=== PATIENT | female | born 1950 | race Caucasian/White ===

== ENCOUNTER → 2019-12-19 13:32 | Outpatient (BNVA) | payer MEDICARE, MEDICAID, SELFPAY | PROVIDERS: Family Provider Nurse Practitioner Family; Visit Provider Nurse Practitioner Family | DX: Z11.59 Encounter for screening for other viral diseases (principal) | CPT/HCPCS: 87635 ==

== ENCOUNTER → 2020-12-10 09:48 | Outpatient (BNVA) | payer MEDICARE, MEDICAID, SELFPAY | PROVIDERS: Family Provider Nurse Practitioner Family; Visit Provider Internal Medicine | DX: M33.90 Dermatopolymyositis, unspecified, organ involvement unspecified (principal); R21 Rash and other nonspecific skin eruption; Z79.899 Other long term (current) drug therapy; Z11.59 Encounter for screening for other viral diseases; Z11.1 Encounter for screening for respiratory tuberculosis | CPT/HCPCS: 83516; 99204 ==

== ENCOUNTER 2020-12-10 11:33 | Outpatient (CLI) | payer MEDICARE, MEDICAID, SELFPAY ==
--- NOTE | 2020-12-10 11:46 | XR_ITS ---
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 The lungs are clear and fully expanded. Cardiomediastinal silhouette is unremarkable. The right breas t is surgically absent. Surgical clips superimpose the lower right chest and right axilla. Regional b keny structures are intact. Spondylosis of the dorsal spine. XR/XR chest 2V* [id number] IMPRESSION: 1. No acute cardiopulmonary finding. No change. 2. Status post right mastectomy.
--- NOTE | 2020-12-10 11:46 | XR_ITS ---
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 No fracture or dislocation. Moderately advanced degenerative change of the medial joint compartment. Varus deformity of the knee. No joint effusion is seen. XR/XR knee RT 1-2V 01075 IMPRESSION: 1. Moderately advanced degenerative change of the medial joint compartment whic h is been progressive since the previous study. 2. No fracture or joint effusion seen
== END 2020-12-10 11:34 | disposition home or self-care (01) ==
LOC: RAD 11:43
PROVIDERS: PCP Nurse Practitioner Family; Visit Provider Internal Medicine
DX: Z79.899 Other long term (current) drug therapy (principal); Z11.59 Encounter for screening for other viral diseases; Z11.1 Encounter for screening for respiratory tuberculosis
CPT/HCPCS: 36415; 71046; 73560; 80053; 81001; 81003; 82550; 84100; 85025; 86140; 86160; 86162; 86200; 86235; 86255; 86376; 86431; 86480; 86704; 86803; 87340

== ENCOUNTER → 2021-03-23 13:02 | Outpatient (BNVA) | payer MEDICARE, MEDICAID, SELFPAY | PROVIDERS: PCP Nurse Practitioner Family; Visit Provider Internal Medicine | DX: M33.90 Dermatopolymyositis, unspecified, organ involvement unspecified (principal); R76.8 Other specified abnormal immunological findings in serum; Z79.899 Other long term (current) drug therapy | CPT/HCPCS: 99214 ==

== ENCOUNTER → 2021-06-11 09:54 | Outpatient (BNVA) | payer MEDICARE, MEDICAID, SELFPAY | PROVIDERS: PCP Nurse Practitioner Family; Visit Provider Internal Medicine | DX: M33.90 Dermatopolymyositis, unspecified, organ involvement unspecified (principal); R76.8 Other specified abnormal immunological findings in serum; M06.9 Rheumatoid arthritis, unspecified; Z79.899 Other long term (current) drug therapy | CPT/HCPCS: 99214 ==

== ENCOUNTER 2021-06-12 07:03 | Outpatient (CLI) | payer MEDICARE, MEDICAID, SELFPAY ==
--- NOTE | 2021-06-12 08:14 | XRR_ITS ---
PROCEDURE INFORMATION: Exam: XR Lumbosacral Spine Exam date and time: 06/12/2021 8:14 AM Age: 71 years old Clinical indication: Low back pain; Patient HX: HX of breast cancer; Additional info: M54.50 - low back pain, unspecified TECHNIQUE: Imaging protocol: XR of the lumbosacral spine. Views: 2 or 3 views. COMPARISON: CR Lumbar Spine Flex/Extens [id number] 04/09/2016 5:24 PM FINDINGS: Bones/joints: No fracture or other acute bony abnormality. Prominent chronic degenerative changes are present throughout the lumbar spine with disc space narrowing, sclerosis and osteophytes. There is moderate lumbar scoliosis There is narrowing sclerosis and hypertrophy of the lumbar facet joints. There is grade 1 spondylolisthesis at the L4-L5 level which is probably from chronic facet and ligamentous degeneration. Soft tissues: Unremarkable. XR/XR lumbar spine 2-3V* [id number] IMPRESSION: 1. Prominent DJD. 2. Grade 1 spondylolisthesis at L4-L5. 3. No acute abnormality.
== END 2021-06-12 07:04 | disposition home or self-care (01) ==
LOC: RAD 07:04
PROVIDERS: PCP Nurse Practitioner Family; Visit Provider Internal Medicine
DX: M43.16 Spondylolisthesis, lumbar region (principal); M54.50 Low back pain, unspecified
CPT/HCPCS: 72100

== ENCOUNTER 2021-08-25 11:51 | Outpatient (CLI) | payer MEDICARE, MEDICAID, SELFPAY ==
[2021-08-25 12:31] LABS: Basophils # 0.1 10^3/uL (0.0-0.1); Basophils % 0.8 %; Eosinophils # 0.1 10^3/uL (0.0-0.8); Eosinophils % 1.1 %; Hemoglobin 13.2 g/dL (11.5-15.3); Lymphocytes # 1.8 10^3/uL (0.8-4.8); Lymphocytes % 25.7 %; Mean Corpuscular HGB Conc 33.8 g/dL (30.0-36.0); Mean Corpuscular Hemoglobin 31.8 pg (28.0-34.0); Mean Platelet Volume 10.6 fL (7.4-10.4); Monocytes # 0.5 10^3/uL (0.2-0.9); Monocytes % 6.7 %; Neutrophils # 4.64 10^3/uL (1.8-7.7); Neutrophils % 65.3 %; Nucleated Red Blood Cells % 0 %; Platelet Count 273 10^3/cmm (130-400); Red Blood Count 4.15 10^6/uL (4.1-5.3); Red Cell Distribution Width 13.4 % (12.1-15.1); White Blood Count 7.1 10^3/uL (4.0-10.0)
[2021-08-25 12:35] LABS: Erythrocyte Sedimentation Rate 9 mm/hr (0-15)
[2021-08-25 13:00] LABS: Alanine Aminotransferase 14 U/L (0-33); Albumin Level 3.9 g/dL (3.5-5.2); Alkaline Phosphatase 91 IU/L (35-105); Aspartate Amino Transferase 18 U/L (0-32); Blood Urea Nitrogen 15 mg/dL (8-23); Carbon Dioxide 27 mmol/L (22-29); Chloride 101 mmol/L (98-107); Creatine Phosphokinase 26 U/L (26-192); Globulin 3.1 g/dL (1.3-4.6); Glucose 102 mg/dL (65-115); Osmolality Calculated 281 mOsm/kg (285-295); Sodium 135 mmol/L (136-145); Total Bilirubin 0.7 mg/dL (0.15-1.2)
== END 2021-08-25 11:52 | disposition home or self-care (01) ==
LOC: LAB 11:55
PROVIDERS: PCP Nurse Practitioner Family; Visit Provider Internal Medicine
DX: M33.90 Dermatopolymyositis, unspecified, organ involvement unspecified (principal); M54.50 Low back pain, unspecified; R76.8 Other specified abnormal immunological findings in serum; Z79.899 Other long term (current) drug therapy
CPT/HCPCS: 80053; 82550; 85025; 85651; 86140; 99214

== ENCOUNTER → 2021-12-22 10:02 | Outpatient (BNVA) | payer MEDICARE, MEDICAID, SELFPAY | PROVIDERS: PCP Nurse Practitioner Family; Visit Provider Internal Medicine | DX: M33.90 Dermatopolymyositis, unspecified, organ involvement unspecified (principal); R76.8 Other specified abnormal immunological findings in serum; M54.50 Low back pain, unspecified | CPT/HCPCS: 99213 ==

== ENCOUNTER 2022-12-29 06:00 | Outpatient (RCR) | payer MEDICARE, MEDICAID, SELFPAY | END 2023-01-13 23:59 | disposition home or self-care (01) | LOC: TPT 06:00 | PROVIDERS: Visit Provider Orthopaedic Surgery | DX: M17.11 Unilateral primary osteoarthritis, right knee (principal) | CPT/HCPCS: 97110; 97140; 97162 ==

== ENCOUNTER 2023-01-14 06:00 | Outpatient (RCR) | payer MEDICARE, SELFPAY | END 2023-02-13 23:59 | disposition home or self-care (01) | LOC: TPT 06:00 | PROVIDERS: Visit Provider Orthopaedic Surgery | DX: Z47.1 Aftercare following joint replacement surgery (principal); Z96.651 Presence of right artificial knee joint | CPT/HCPCS: 97110 ==

== ENCOUNTER 2023-02-14 06:00 | Outpatient (RCR) | payer MEDICARE, SELFPAY | END 2023-02-22 23:59 | disposition home or self-care (01) | LOC: TPT 06:00 | PROVIDERS: Visit Provider Orthopaedic Surgery | DX: Z47.1 Aftercare following joint replacement surgery (principal); Z96.651 Presence of right artificial knee joint | CPT/HCPCS: 97110 ==

== ENCOUNTER 2023-02-17 10:41 | Outpatient (CLI) | payer MEDICARE, MEDICAID, SELFPAY ==
--- NOTE | 2023-02-17 10:53 | MM_ITS ---
WS: [id number] LEFT 3D TOMOSYNTHESIS DIGITAL MAMMOGRAPHY WITH CAD CLINICAL INFORMATION: HX BR CA/RT MST HISTORY: History of RIGHT mastectomy. COMPARISON: 2018 TECHNIQUE: 3 views of the left breast were obtained. FINDINGS: Scattered fibroglandular densities of the left breast. Punctate and lucent centered calcifications. No suspicious focal mass, asymmetry, calcifications, or architectural distortion. No evidence of kasia gnancy. IMPRESSION: MM/[place] [address] BI-RADS: 2-Benign FOLLOW UP: 1 Year Follow-up Recommend return to annual diagnostic mammography.
== END 2023-02-17 10:42 | disposition home or self-care (01) ==
PROVIDERS: Visit Provider Nurse Practitioner Family
DX: Z85.3 Personal history of malignant neoplasm of breast (principal)
CPT/HCPCS: 77061; G0279

== ENCOUNTER → 2023-04-11 09:40 | Outpatient (BNVA) | payer MEDICARE, SELFPAY | PROVIDERS: Visit Provider Nurse Practitioner Family | DX: I10 Essential (primary) hypertension (principal); Z79.899 Other long term (current) drug therapy; R76.8 Other specified abnormal immunological findings in serum | CPT/HCPCS: 80053; 80061; 82306; 84443; 85025 ==

== ENCOUNTER → 2023-05-19 09:48 | Outpatient (BNVA) | payer MEDICARE, SELFPAY | PROVIDERS: PCP Nurse Practitioner Family; Referring Provider Nurse Practitioner Family; Visit Provider Dermatology | DX: M33.12 Other dermatomyositis with myopathy (principal); L57.0 Actinic keratosis; L21.8 Other seborrheic dermatitis; M20.5X9 Other deformities of toe(s) (acquired), unspecified foot; L66.1 Lichen planopilaris; L82.1 Other seborrheic keratosis; L81.4 Other melanin hyperpigmentation | CPT/HCPCS: 17000; 99204 ==

== ENCOUNTER → 2023-09-29 13:50 | Outpatient (BNVA) | payer MEDICARE, SELFPAY | PROVIDERS: PCP Nurse Practitioner Family; Visit Provider Nurse Practitioner Family | DX: Z79.899 Other long term (current) drug therapy (principal); I10 Essential (primary) hypertension; F41.9 Anxiety disorder, unspecified; F33.41 Major depressive disorder, recurrent, in partial remission | CPT/HCPCS: 80053; 80061; 84443; 85025 ==

== ENCOUNTER → 2023-10-13 10:30 | Outpatient (BNVA) | payer MEDICARE, SELFPAY | PROVIDERS: PCP Nurse Practitioner Family; Visit Provider Internal Medicine Rheumatology | DX: Z79.899 Other long term (current) drug therapy (principal); M33.90 Dermatopolymyositis, unspecified, organ involvement unspecified; R76.8 Other specified abnormal immunological findings in serum; Z71.85 Encounter for immunization safety counseling; Z11.1 Encounter for screening for respiratory tuberculosis; Z11.59 Encounter for screening for other viral diseases | CPT/HCPCS: 99214 ==

== ENCOUNTER → 2023-11-21 09:30 | Outpatient (BNVA) | payer MEDICARE, SELFPAY | PROVIDERS: PCP Nurse Practitioner Family; Visit Provider Nurse Practitioner Family | DX: M33.12 Other dermatomyositis with myopathy (principal); L21.8 Other seborrheic dermatitis; L66.11 Classic lichen planopilaris | CPT/HCPCS: 99214 ==

== ENCOUNTER → 2024-04-09 10:13 | Outpatient (BNVA) | payer MEDICARE, SELFPAY | PROVIDERS: Visit Provider Internal Medicine Rheumatology | DX: M33.90 Dermatopolymyositis, unspecified, organ involvement unspecified (principal); R76.8 Other specified abnormal immunological findings in serum; Z79.899 Other long term (current) drug therapy; Z71.85 Encounter for immunization safety counseling; M47.816 Spondylosis without myelopathy or radiculopathy, lumbar region | CPT/HCPCS: 36415; 80076; 82565; 85025; 85651; 86140; 99214 ==

== ENCOUNTER → 2024-10-16 14:50 | Outpatient (BNVA) | payer MEDICARE, SELFPAY | PROVIDERS: Visit Provider Nurse Practitioner Family | DX: M33.12 Other dermatomyositis with myopathy (principal); L21.8 Other seborrheic dermatitis; L66.11 Classic lichen planopilaris; L57.8 Other skin changes due to chronic exposure to nonionizing radiation; D48.5 Neoplasm of uncertain behavior of skin | CPT/HCPCS: 11102; 99214 ==

== ENCOUNTER 2024-10-31 13:56 | Outpatient (CLI) | payer MEDICARE, SELFPAY ==
[2024-10-31 14:56] LABS: Hematocrit 36.9 % (36-47); Hemoglobin 12.40 g/dL (11.27-16.99); Mean Corpuscular HGB Conc 33.6 g/dL (30-55); Mean Corpuscular Hemoglobin 33.6 pg (27-33); Mean Corpuscular Volume 100.0 fl (85-98); Nucleated Red Blood Cells % 0 %; Platelet Count 363 10^3/cmm (157-399); Red Blood Count 3.69 10^6/uL (3.85-5.65); White Blood Count 5.97 10^3/uL (3.29-11.43)
[2024-10-31 15:17] LABS: Alanine Aminotransferase 35 U/L (0-33); Albumin Level 3.7 g/dL (3.5-5.2); Alkaline Phosphatase 92 U/L (35-105); Aspartate Amino Transferase 34 U/L (0-32); Globulin 3.4 g/dL (1.3-4.6); Total Protein 7.1 g/dL (6.6-8.7)
== END 2024-10-31 13:57 | disposition home or self-care (01) ==
PROVIDERS: PCP Nurse Practitioner Family; Visit Provider Internal Medicine Rheumatology
DX: M33.13 Other dermatomyositis without myopathy (principal); Z79.899 Other long term (current) drug therapy; Z71.85 Encounter for immunization safety counseling; R76.8 Other specified abnormal immunological findings in serum; M47.816 Spondylosis without myelopathy or radiculopathy, lumbar region
CPT/HCPCS: 36415; 80076; 82565; 85025; 85651; 86140; 99214

== ENCOUNTER 2024-11-18 17:34 | Inpatient (IN) | payer MEDICARE, SELFPAY ==
[2024-11-18] VITALS (8 sets, daily range): BP systolic 153–232; BP diastolic 86–116; PULSE 75–90; RESP 15–18; TEMP 36.3–36.8; O2SAT 93–98; BMI 35.3; BMI 35.4
--- NOTE | 2024-11-18 17:37 | ECG_ITS ---
[facility] Test Date: 2024-11-18 Pat Name: Kassi Rodriguez Department: Room: Gender: Female Police Pilot: : 1950 Requested By: Vivian Lockhart Order Number: [id number] Parminder MD: Sandra Black M.D. Measurements Intervals [place] Rate: 73 P: 81 [place]: 179 QRS: 33 QRSD: 94 T: 43 QT: 402 QTc: 444 Interpretive Statements SINUS RHYTHM No previous ECG available for comparison Electronically Signed On 11-18-2024 21:18:53 CDT by Sandra Black M.D. [email or web address], [id number] [id number]
--- OUTSIDE RECORDS SUMMARY | 2024-11-18 17:40 | XMS_ITS | Encounter Summary ---
Author Organization [facility] Address [address] [place] [address] Care Team Providers Care Pencil Inspector Name Role Phone Ilda Hicks APN Primary Care Provider [phone] Encounter Details Date Type Department Care Team (Late st Contact Info) Description 09/17/2003 Outpatient Historical [facility] [address] [facility] [address] [place] [address] Azeb Aranda MD NO ADDRESS ON FILE SYMPTOMS IN BREAST NEC (Primary Dx) Social History Tobacco Use Types Packs/Day Years Used Date Smoking Tobacco: Never Assessed Comments Unknown Sex and Gender Information Value Date Recorded Sex Assigned at Not on file 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 [facility] [address] [place] [address] PCP - General 03/29/08 documented as of this encounter
--- OUTSIDE RECORDS SUMMARY | 2024-11-18 17:40 | XMS_ITS ---
Author Organization [facility] Address [address] Wilder: Epic Prelude ADT [place] [address] Care Team Providers Care Games Manager Name Role Phone Ilda Hicks APN Primary Care Provider [phone] Active Problems Problem Noted Date Diagnosed Date Primary osteoarthritis of right knee 12/23/2022 Preop general physical exam 12/01/2022 Status post right knee replacement -12/23/2022 Hx of breast cancer 12/01/2022 History of obstructive sleep apnea 12/01/2022 Rheumatoid arthritis 12/01/2022 SERGE (generalized anxiety disorder) 12/01/2022 HTN (hypertension), benign 12/01/2022 Hyponatremia 12/01/2022 Obesity (BMI 30.0-34.9) 12/01/2022 Dupuytren's disease of palm of both hands 2018 S/P carpal tunnel release, right wrist SX 8 09/28/2017 S/P 1.Corrective osteoplasty , right distal radius with Z-lengthening 09/28/2017 Carpal tunnel syndrome of right wrist 09/05/2017 Fracture of distal radius, right, closed, with n onunion 07/20/2017 History of breast cancer 12/04/2013 Follow-up examination, following unspecified artur leena 05/26/2009 Dermatomyositis 03/06/2009 Malignant neoplasm of upper-outer quadrant of fe male breast 10/02/2008 Current Treatment and Therapy Plans No current plan information found. Past Treatment and Therapy Plans No past plan information found. Lifetime Dose Tracking * Chemical Lifetime Dose Automatic Entry Manual Entr y Total DLP 166 DLP 0 DLP 166 DLP CTDIvol Max 11.3 mGy 0 mGy 11.3 mGy CTDIvol Min 11.3 mGy 0 mGy 11.3 mGy Resolved Problems Problem Noted Date Diagnosed Date Resolved Date Dermatomyositis 03/06/2009 03/06/2009
--- OUTSIDE RECORDS SUMMARY | 2024-11-18 17:40 | XMS_ITS | Encounter Summary ---
Author Organization [facility] Address [address] [place] [address] Care Team Providers Care Laminator Hand Name Role Phone Ilda Hicks APN Primary Care Provider [phone] Encounter Details Date Type Department Care Team (Late st Contact Info) Description 12/14/2005 Outpatient Historical [facility] Dermatology- 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 [facility] [address] [place] [address] PCP - General 03/29/08 documented as of this encounter
--- OUTSIDE RECORDS SUMMARY | 2024-11-18 17:40 | XMS_ITS | Encounter Summary ---
Author Organization [facility] Address [address] [place] [address] Care Team Providers Care Airport Driver Name Role Phone Ilda Hicks APN Primary Care Provider [phone] Encounter Details Date Type Department Care Team (Late st Contact Info) Description 04/10/2009 Ancillary Orders [facility] Gen Spec Surg [place] [facility] [address] [place] [address] Judson Yang MD NO ADDRESS ON FILE Social History Tobacco Use Types Packs/Day Years Used Date Smoking Tobacco: Never Alcohol Use Standard Drinks/Week Comments No 0 (1 standard drink = 0.6 oz pur e alcohol) Comments No Sex and Gender Information Value Date Recorded Sex Assigned at Not on file 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 [facility] [address] [place] [address] PCP - General 03/29/08 documented as of this encounter
--- OUTSIDE RECORDS SUMMARY | 2024-11-18 17:40 | XMS_ITS | Encounter Summary ---
Author Organization [facility] Address [address] [facility] Attn: Epic Prelude ADT [place] [address] Care Team Providers Care Floor Technician Name Role Phone Ilda Hicks APN Primary Care Provider [phone] Encounter Details Date Type Department Care Team (Late st Contact Info) Description 11/13/2001 Outpatient Historical Khadar Rushing DO [address] [place] [address] Social History Tobacco Use Types Packs/Day Years Used Date Smoking Tobacco: Never Assessed Comments Unknown Sex and Gender Information Value Date Recorded Sex Assigned at Not on file 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 [place], [place] [address] PCP - General 03/29/08 documented as of this encounter
--- OUTSIDE RECORDS SUMMARY | 2024-11-18 17:40 | XMS_ITS | Encounter Summary ---
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 Gender Identity Not on file Sexual Orientation Not on file documented as of this encounter Plan of Treatment Not on file documented as of this encounter Procedures Procedure Name Priority Date/Time Associated Diagnosis Comments POC GLUCOSE Routine 06/29/2007 5:46 AM CDT POC GLUCOSE Routine 06/29/2007 12:10 AM CDT POC GLUCOSE Routine 06/28/2007 6:38 PM CDT POC GLUCOSE Routine 06/28/2007 2:02 PM CDT PATHOLOGY Routine 06/28/2007 8:22 AM CDT documented in this encounter Results * (ABNORMAL) POC GLUCOSE (06/29/2007 5:46 AM CDT) GLUCOSE POC 141(H) 60 - 100 mg/dL [facility] Venous blood specimen (specimen) 06/29/2007 5:46 AM CDT 06/30/2007 5:22 AM CDT Judson Yang MD POINT OF CARE TESTING Marilin l Result Performing Organization Address City/[facility] Co de Phone Number [facility] CLIA# [id number] [address] [place] [address] * (ABNORMAL) POC GLUCOSE (06/29/2007 12:10 AM CDT) GLUCOSE POC 171(H) 60 - 100 mg/dL [facility] Venous blood specimen (specimen) 06/29/2007 12:10 AM CDT 06/30/2007 5:22 AM CDT Judson Yang MD POINT OF CARE TESTING Marilin l Result Performing Organization Address [facility] Co de Phone Number [facility] CLIA# [id number] [address] [place] [address] * (ABNORMAL) POC GLUCOSE (06/28/2007 6:38 PM CDT) GLUCOSE POC 178(H) 60 - 100 mg/dL [facility] COMMENT POC Follow Protocol [facility] Venous blood specimen (specimen) 06/28/2007 6:38 PM CDT 06/29/2007 12:44 AM CDT uJdson Yang MD POINT OF CARE TESTING Marilin l Result Performing Organization Address City/[facility] Co de Phone Number [facility] CLIA# [id number] [address] [place] [address] * (ABNORMAL) POC GLUCOSE (06/28/2007 2:02 PM CDT) GLUCOSE POC 109(H) 60 - 100 mg/dL [facility] Venous blood specimen (specimen) 06/28/2007 2:02 PM CDT 06/29/2007 1:13 AM CDT Judson Yang MD POINT OF CARE TESTING Marilin flores Result [facility] CLIA# [id number] [address] [place] [address] * PATHOLOGY (06/28/2007 8:22 AM CDT) PATHOLOGY/CYT OLOGY REPORT [facility] Anatomic Pathology Dept [address] [place] [address] Patient: KASSI RODRIGUEZ Accn No: [id number] Collected: 06/28/2007 8:22:00 AM SURGICAL PATHOLOGY FINAL REPORT Diagnosis A. Breast, right, mastectomy with axillary lymph nodes - invasive poorly differentiated ductal carcinoma - margins free of carcinoma - twenty-two benign axillary lymph nodes - see diagnostic summary. Diagnostic Summary: Histologic Type: Invasive poorly differentiated ductal carcinoma Histologic Grade (modified SBR): Poorly differentiated, Grade 3 of 3 Tubule formation score: 3 Nuclear pleomorphism score: 3 Mitotic count score: 2 Total score: 8 Size of invasive component (greatest dimension): 1.8 x 1.2 cm STAGING INFORMATION Primary Tumor: pT1c Regional Lymph Nodes: pN0 Number of nodes examined: 22 Number with metastasis: 0 Distant Metastasis: pMX Margins (invasive tumor): Uninvolved with carcinoma with mass located 2 cm from superior margin Margins (in situ tumor): Free of carcinoma Type of in situ component: Ductal carcinoma in situ, solid with central necrosis, Nuclear Grade 3 Size or percentage of in situ component: Less than 1% Vascular/lymphatic involvement: Not identified Calcifications: Not identified Prognostic markers: Were obtained on previous needle core biopsies [id number] and showed: ER: 0%, unfavorable NE: 0%, unfavorable Her2/humberto: 0, normal limit Ki-67: 55%, unfavorable. Kristy Taylor M.D. (Electronically signed by) Verified: 06/30/07 ROSSY/ELANA Clinical Information Invasive ductal carcinoma right breast. NOTE: The specimen will meet the formalin fixation guidelines. Specimen Source ABreast, RIGHT Microscopic Description Microscopic examination was performed. Gross Description Part A. Submitted in a container of formalin labelled [place], right total mastectomy with axillary lymph nodes is a mastectomy specimen with attached axillary tissue measuring 27 x 25 x 8 cm. An ellipse of skin containing nipple and areola is present on the anterior surface measuring 13 x 9.5 cm. The areola measures 4 cm in diameter. No lesions are identified on the skin surface. A suture is present at the medial aspect of the skin ellipse. The deep margin shows a good fascial plane with a small amount of attached skeletal muscle. The superior margin is marked with red ink, the inferior margin with green ink, and the deep margin with black ink. The breast is serially sectioned revealing a grayish-white stellate tumor mass in the upper outer breast quadrant measuring 1.8 x 1.2 x 1 cm. The tumor is located 2 cm from the superior margin, 5 cm from the deep margin and greater than 9 cm from the inferior margin. The tumor is located 3.5 cm from the overlying skin. No additional mass lesions are identified in the breast parenchyma. Cassette Summary: A1 - nipple and subareolar tissue A2 - superior margin nearest to tumor A3 - deep margin nearest to tumor A4-A6 - sections of tumor without inked margin A7 - additional sections upper outer breast quadrant greater than 1 cm from inked margin A8 - additional sections lower outer breast quadrant greater than 1 cm from inked margin A9 - additional sections lower inner breast quadrant greater than 1 cm from inked margin A10 - additional sections upper inner breast quadrant greater than 1 cm from inked margin A11 - five possible lymph nodes A12 - five possible lymph nodes A13-A15 - sections of one possible lymph node A16 - one possible lymph node bisected A17 - one possible lymph node A18 - one possible lymph node bisected A19-A20 - one possible lymph node A21 - one possible lymph node bisected A22 - four possible lymph nodes A23-A25 - one possible lymph node A26 - one possible lymph node bisected. Gross Summary: Specimen Type: Mastectomy with attached axillary dissection Lymph Node Sampling: Attached axillary dissection Specimen Size: 27 x 25 x 8 cm Laterality: Right Tumor Site: Upper outer quadrant (10 o'clock from previous needle core biopsy [id number]) Time in Formalin Between 6 and 48 Hours (Yes/No): Yes. PCR/TKB INTERFACE SYSTEM 06/28/2007 8:22 AM CDT us Judson Yang MD PATHOLOGY/CYTOLOGY ORDERAB LES Final Result INTERFACE SYSTEM Refer to clinic/hospital department documented in this encounter Visit Diagnoses Diagnosis Unspecified essential hypertension documented in this encounter Care Teams Stencil Machine Operator Relationship Specialty Start Date End Date Ilda Hicks APN [address] [place] [address] PCP - General 03/29/08 documented as of this encounter
--- OUTSIDE RECORDS SUMMARY | 2024-11-18 17:40 | XMS_ITS | Encounter Summary ---
Author Organization [facility] Address [address] [place] [address] Care Team Providers Care Paper Machine Supervisor Name Role Phone Hicks, Ilda Forbes APN Primary Care Provider [phone] Encounter Details Date Type Department Care Team (Late st Contact Info) Description 06/29/2007 Outpatient Historical [facility] Jesu Delgado MD NO ADDRESS ON FILE Morbid Obesity (CMS/HCC); Malignant Neoplasm of Breast (Female), Unspecified Site (CMS/HCC); Personal History of Tobacco Use, Presenting Hazards to Health Social History Tobacco Use Types Packs/Day Years Used Date Smoking Tobacco: Never Assessed Comments Unknown Sex and Gender Information Value Date Recorded Sex Assigned at Not on file Legal Sex Female 2:47 AM VIROLOGIST Gender Identity Not on file Sexual Orientation Not on file documented as of this encounter Plan of Treatment Not on file documented as of this encounter Procedures Procedure Name Priority Date/Time Associated Diagnosis Comments POC GLUCOSE Routine 07/07/2007 7:08 AM CDT POC GLUCOSE Routine 07/06/2007 8:07 PM CDT POC GLUCOSE Routine 07/06/2007 6:11 PM CDT POC GLUCOSE Routine 07/06/2007 1:37 PM CDT POC GLUCOSE Routine 07/06/2007 5:40 AM CDT POC GLUCOSE Routine 07/05/2007 10:13 PM CDT POC GLUCOSE Routine 07/05/2007 4:21 PM CDT POC GLUCOSE Routine 07/05/2007 12:31 PM CDT POC GLUCOSE Routine 07/05/2007 7:52 AM CDT POC GLUCOSE Routine 07/04/2007 8:25 PM CDT POC GLUCOSE Routine 07/04/2007 6:11 PM CDT POC GLUCOSE Routine 07/04/2007 12:09 PM CDT CBC WITH DIFFERENTIAL Routine 07/04/2007 6:08 AM CDT PTT Routine 07/04/2007 6:08 AM CDT POC GLUCOSE Routine 07/04/2007 5:18 AM CDT POC GLUCOSE Routine 07/03/2007 11:57 PM CDT POC GLUCOSE Routine 07/03/2007 5:16 PM CDT POC GLUCOSE Routine 07/03/2007 8:06 AM CDT documented in this encounter Results * (ABNORMAL) POC GLUCOSE (07/07/2007 7:08 AM CDT) [facility] Signature GLUCOSE POC 111(H) 60 - 100 mg/dL [facility] Venous blood specimen (specimen) 07/07/2007 7:08 AM CDT 07/08/2007 1:11 AM CDT us Jesu Ho MD POINT OF CARE TESTING Final Re sult [facility] CLIA# [id number] [address] [place] [address] * (ABNORMAL) POC GLUCOSE (07/06/2007 8:07 PM CDT) GLUCOSE POC 116(H) 60 - 100 mg/dL [facility] Venous blood specimen (specimen) 07/06/2007 8:07 PM CDT 07/07/2007 2:42 AM CDT Jesu Ho MD POINT OF CARE TESTING Final Re sult Performing Organization Address [facility] Co de Phone Number [facility] CLIA# [id number] [address] [place] [address] * (ABNORMAL) POC GLUCOSE (07/06/2007 6:11 PM CDT) GLUCOSE POC 105(H) 60 - 100 mg/dL [facility] Venous blood specimen (specimen) 07/06/2007 6:11 PM CDT 07/07/2007 2:42 AM CDT us Jesu Ho MD POINT OF CARE TESTING Final Re sult Performing Organization Address [facility] Co de Phone Number [facility] CLIA# [id number] [address] [place] [address] * (ABNORMAL) POC GLUCOSE (07/06/2007 1:37 PM CDT) GLUCOSE POC 128(H) 60 - 100 mg/dL [facility] Venous blood specimen (specimen) 07/06/2007 1:37 PM CDT 07/07/2007 2:42 AM CDT us Jesu Ho MD POINT OF CARE TESTING Final Re sult Performing Organization Address [facility] Co de Phone Number [facility] CLIA# [id number] [address] [place] [address] * (ABNORMAL) POC GLUCOSE (07/06/2007 5:40 AM CDT) GLUCOSE POC 114(H) 60 - 100 mg/dL [facility] Venous blood specimen (specimen) 07/06/2007 5:40 AM CDT 07/07/2007 2:42 AM CDT Jesu Ho MD POINT OF CARE TESTING Final Re sult Performing Organization Address [facility] Co de Phone Number [facility] CLIA# [id number] [address] [place] [address] * (ABNORMAL) POC GLUCOSE (07/05/2007 10:13 PM CDT) GLUCOSE POC 146(H) 60 - 100 mg/dL [facility] Venous blood specimen (specimen) 07/05/2007 10:13 PM CDT 07/06/2007 3:14 AM CDT Jesu Ho MD POINT OF CARE TESTING Final Re sult Performing Organization Address [facility] de Phone Number [facility] CLIA# [id number] [address] [place] [address] * (ABNORMAL) POC GLUCOSE (07/05/2007 4:21 PM CDT) GLUCOSE POC 132(H) 60 - 100 mg/dL [facility] Venous blood specimen (specimen) 07/05/2007 4:21 PM CDT 07/06/2007 3:14 AM CDT Jesu Ho MD POINT OF CARE TESTING Final Re sult Performing Organization Address [facility] de Phone Number [facility] CLIA# [id number] [address] [place] [address] * (ABNORMAL) POC GLUCOSE (07/05/2007 12:31 PM CDT) GLUCOSE POC 145(H) 60 - 100 mg/dL [facility] Venous blood specimen (specimen) 07/05/2007 12:31 PM CDT 07/06/2007 3:17 AM CDT us Jesu Ho MD POINT OF CARE TESTING Final Re sult Performing Organization Address [facility] Co de Phone Number [facility] CLIA# [id number] [address] [place] [address] * (ABNORMAL) POC GLUCOSE (07/05/2007 7:52 AM CDT) GLUCOSE POC 118(H) 60 - 100 mg/dL [facility] Venous blood specimen (specimen) 07/05/2007 7:52 AM CDT 07/06/2007 3:17 AM CDT us Jesu Ho MD POINT OF CARE TESTING Final Re sult Performing Organization Address [facility] de Phone Number [facility] CLIA# [id number] [address] [place] [address] * (ABNORMAL) POC GLUCOSE (07/04/2007 8:25 PM CDT) COMMENT POC Follow Protocol [facility] GLUCOSE POC 132(H) 60 - 100 mg/dL [facility] Venous blood specimen (specimen) 07/04/2007 8:25 PM CDT 07/05/2007 5:13 AM CDT us Jesu Ho MD POINT OF CARE TESTING Final Re sult Performing Organization Address [facility] de Phone Number [facility] CLIA# [id number] [address] [place] [address] * (ABNORMAL) POC GLUCOSE (07/04/2007 6:11 PM CDT) COMMENT POC Follow Protocol [facility] GLUCOSE POC 115(H) 60 - 100 mg/dL [facility] Venous blood specimen (specimen) 07/04/2007 6:11 PM CDT 07/05/2007 5:13 AM CDT us Jesu Ho MD POINT OF CARE TESTING Final Re sult Performing Organization Address [facility] de Phone Number [facility] CLIA# [id number] [address] [place], [place] [address] * (ABNORMAL) POC GLUCOSE (07/04/2007 12:09 PM CDT) GLUCOSE POC 122(H) 60 - 100 mg/dL [facility] Venous blood specimen (specimen) 07/04/2007 12:09 PM CDT 07/05/2007 5:09 AM CDT us Jesu Ho MD POINT OF CARE TESTING Final Re sult Performing Organization Address [facility] de Phone Number [facility] CLIA# [id number] [address] [place] [address] * PTT (07/04/2007 6:08 AM CDT) PTT 34.0 22.5 - 36.5 Secs [facility] Comment: Therapeutic Range: Hi-level PE/DVT heparin protocol 80.1 -95.0 sec Lo-level PE/DVT heparin protocol 67.1 - 80.0 sec Cardiac Heparin Protocol 67.1 - 85.0 sec Neuro Heparin Protocol 67.1 - 80.0 sec As of 05/04/2007 note change in APTT Normal Range. Blood specimen (specimen) 07/04/2007 6:08 AM CDT 07/04/2007 6:35 AM CDT us Jesu Ho MD HEMATOLOGY ORDERABLES Final Re sult Performing Organization Address [facility] de Phone Number [facility] CLIA# [id number] [address] [place] [address] * (ABNORMAL) CBC WITH DIFFERENTIAL (07/04/2007 6:08 AM CDT) BASOPHILS 0.1 0.0 - 1.0 % [facility] MPV 10.6 8.9 - 12.8 Fl [facility] BASOPHILS ABSOLUTE 0.0 0.0 - 0.2 K/ul [facility] HEMOGLOBIN 8.7(L) 12.0 - 16.0 g/dL [facility] MONOCYTES 6.9 2.0 - 10.0 % [facility] RDW 14.9(H) 11.0 - 14.5 % [facility] MONOCYTE ABSOLUTE 0.8(H) 0.1 - 0.6 K/ul [facility] WBC 11.4(H) 4.8 - 10.8 K/ul [facility] NEUTROPHILS 81.6(H) 42.2 - 75.2 % [facility] MCH 27.2 27.0 - 34.0 pg [facility] NEUTROPHIL ABSOLUTE 9.3(H) 2.0 - 8.0 K/ul [facility] HEMATOCRIT 27.6(L) 36.0 - 46.0 % [facility] PLATELETS 335 140 - 440 K/ul [facility] EOSINOPHIL ABSOLUTE 0.0 0.0 - 0.7 K/ul [facility] EOSINOPHILS 0.1 0.0 - 7.0 % [facility] PERIPHERAL BLOOD SMEAR REVIEW Automated Diff [facility] RBC 3.20(L) 4.20 - 5.40 Mil/ul [facility] MCHC 31.5 30.0 - 35.0 g/dL [facility] LYMPHOCYTE ABSOLUTE 1.3 1.2 - 4.0 K/ul [facility] LYMPHOCYTES 11.3(L) 24.0 - 44.0 % [facility] MCV 86.3 84.0 - 103.0 Fl [facility] Blood specimen (specimen) 07/04/2007 6:08 AM CDT 07/04/2007 6:35 AM CDT us Jesu Ho MD HEMATOLOGY ORDERABLES Final Re sult Performing Organization Address [facility] de Phone Number [facility] CLIA# [id number] [address] [place] [address] * (ABNORMAL) POC GLUCOSE (07/04/2007 5:18 AM CDT) GLUCOSE POC 161(H) 60 - 100 mg/dL [facility] Venous blood specimen (specimen) 07/04/2007 5:18 AM CDT 07/05/2007 5:09 AM CDT us Jesu Ho MD POINT OF CARE TESTING Final Re sult Performing Organization Address [facility] de Phone Number [facility] CLIA# [id number] [address] [place] [address] * (ABNORMAL) POC GLUCOSE (07/03/2007 11:57 PM CDT) GLUCOSE POC 201(H) 60 - 100 mg/dL [facility] Venous blood specimen (specimen) 07/03/2007 11:57 PM CDT 07/04/2007 2:03 AM CDT us Jesu Ho MD POINT OF CARE TESTING Final Re sult Performing Organization Address [facility] de Phone Number [facility] CLIA# [id number] [address] [place] [address] * (ABNORMAL) POC GLUCOSE (07/03/2007 5:16 PM CDT) GLUCOSE POC 121(H) 60 - 100 mg/dL [facility] Venous blood specimen (specimen) 07/03/2007 5:16 PM CDT 07/04/2007 1:23 AM CDT us Jesu Ho MD POINT OF CARE TESTING Final Re sult Performing Organization Address [facility] Co de Phone Number [facility] CLIA# [id number] [address] [place] [address] * (ABNORMAL) POC GLUCOSE (07/03/2007 8:06 AM CDT) GLUCOSE POC 106(H) 60 - 100 mg/dL [facility] Venous blood specimen (specimen) 07/03/2007 8:06 AM CDT 07/04/2007 7:48 AM CDT us Jesu Ho MD POINT OF CARE TESTING Final Re sult Performing Organization Address [facility] de Phone Number [facility] CLIA# [id number] [address] [place] [address] documented in this encounter Visit Diagnoses Diagnosis Morbid obesity (CMS/HCC) Morbid obesity Malignant neoplasm of breast (female), unspecified site Personal history of tobacco use, presenting hazards to health documented in this encounter Care Teams Paper Machine Supervisor Relationship Specialty Start Date End Date Ilda Hicks APN [address] [address] PCP - General 03/29/08 documented as of this encounter
--- OUTSIDE RECORDS SUMMARY | 2024-11-18 17:40 | XMS_ITS | Encounter Summary ---
Author Organization [facility] Address [address] [place] [address] Care Team Providers Care Optical Fabricator Name Role Phone Ilda Hicks APN Primary Care Provider [phone] Encounter Details Date Type Department Care Team (Latest Contact Info) Description 11/16/2004 Outpatient Historical [facility] [address] [facility] [address] [place] [id number] Kvng Lyn MD NO ADDRESS ON FILE SCREENING MAMM-MAILG NEOPL NEC (Primary Dx) Social History Tobacco Use Types Packs/Day Years Used Date Smoking Tobacco: Never Assessed Comments Unknown Sex and Gender Information Value Date Recorded Sex Assigned at Not on file Legal Sex Female 2:47 AM ASSISTANT PRESSMAN Gender Identity Not on file Sexual Orientation Not on file documented as of this encounter Plan of Treatment Not on file documented as of this encounter Visit Diagnoses Diagnosis Other screening mammogram- Primary documented in this encounter Care Teams Optical Fabricator Relationship Specialty Start Date End Date Ilda Hicks APN [address] [facility] [address] [place] [address] PCP - General 03/29/08 documented as of this encounter
--- OUTSIDE RECORDS SUMMARY | 2024-11-18 17:40 | XMS_ITS | Encounter Summary ---
Author Organization [facility] Address [address] [place] [address] Care Team Providers Care Knife Glazer Name Role Phone Ilda Hicks APN Primary Care Provider [phone] Encounter Details Date Type Department Care Team (Latest Contact Info) Description 09/17/2003 Outpatient Historical [facility] Chet Handy MD [address] [address] OTHER LUNG DISEASE NEC (Primary Dx) Social History Tobacco Use Types Packs/Day Years Used Date Smoking Tobacco: Never Assessed Comments Unknown Sex and Gender Information Value Date Recorded Sex Assigned at Not on file Legal Sex Female 2:47 AM PHOSPHATIC FERTILIZER SUPERVISOR Gender Identity Not on file Sexual Orientation Not on file documented as of this encounter Plan of Treatment Not on file documented as of this encounter Visit Diagnoses Diagnosis Other diseases of lung, not elsewhere classified- Primary documented in this encounter Care Teams Knife Glazer Relationship Specialty Start Date End Date Ilda Hicks APN [address] [address] PCP - General 03/29/08 documented as of this encounter
--- OUTSIDE RECORDS SUMMARY | 2024-11-18 17:40 | XMS_ITS | Encounter Summary ---
Author Organization [facility] Address [address] [place] [address] Care Team Providers Care Concrete Batching Plant Operator Name Role Phone Ilda Hicks APN Primary Care Provider [phone] Encounter Details Date Type Department Care Team (Late st Contact Info) Description 02/25/2003 Outpatient Historical [facility] Gen Spec Surg [facility] [address] [place] [address] Judson Yang MD NO ADDRESS ON FILE SOLITARY CYST OF BREAST (Primary Dx) Social History Tobacco Use Types Packs/Day Years Used Date Smoking Tobacco: Never Assessed Comments Unknown Sex and Gender Information Value Date Recorded Sex Assigned at Not on file Legal Sex Female 2:47 AM INTERMODAL CUSTOMER SERVICE Gender Identity Not on file Sexual Orientation Not on file documented as of this encounter Plan of Treatment Not on file documented as of this encounter Visit Diagnoses Diagnosis Solitary cyst of breast- Primary documented in this encounter Care Teams Concrete Batching Plant Operator Relationship Specialty Start Date End Date Ilda Hicks APN [address] [address] PCP - General 03/29/08 documented as of this encounter
--- OUTSIDE RECORDS SUMMARY | 2024-11-18 17:40 | XMS_ITS | Encounter Summary ---
Author Organization [facility] Address [address] [place] [address] Care Team Providers Care Extended Insurance Clerk Name Role Phone Ilda Hicks APN Primary Care Provider [phone] Encounter Details Date Type Department Care Team (Late st Contact Info) Description 06/15/2007 Outpatient Historical [facility] [address] [facility] [address] [place] [address] Social History Tobacco Use Types Packs/Day Years Used Date Smoking Tobacco: Never Assessed Comments Unknown Sex and Gender Information Value Date Recorded Sex Assigned at Not on file Legal Sex Female 2:47 AM OIL WELL SERVICE OPERATOR HELPER Gender Identity Not on file Sexual Orientation Not on file documented as of this encounter Plan of Treatment Not on file documented as of this encounter Visit Diagnoses Not on filedocumented in this encounter Care Teams Extended Insurance Clerk Relationship Specialty Start Date End Date Ilda Hicks APN [address] [facility] [address] [place] [address] PCP - General 03/29/08 documented as of this encounter
--- OUTSIDE RECORDS SUMMARY | 2024-11-18 17:40 | XMS_ITS | Encounter Summary ---
Author Organization [facility] Address [address] [place] [address] Care Team Providers Care Preparing Box Tender Name Role Phone Ilda Hicks APN Primary Care Provider [phone] Encounter Details Date Type Department Care Team (Latest Contact Info) Description 05/31/2001 Outpatient Historical [facility] Radha, Dimas Wright MD [address] [address] ABDOMINAL PAIN RUQ (Primary Dx); CHOLELITHIASIS NOS Social History Tobacco Use Types Packs/Day Years Used Date Smoking Tobacco: Never Assessed Comments Unknown Sex and Gender Information Value Date Recorded Sex Assigned at Not on file Legal Sex Female 2:47 AM CODING QUALITY COORDINATOR Gender Identity Not on file Sexual Orientation Not on file documented as of this encounter Plan of Treatment Not on file documented as of this encounter Visit Diagnoses Diagnosis Abdominal pain, right upper quadrant- Primary Calculus of gallbladder without mention of cholecystitis or obstruction documented in this encounter Care Teams Preparing Box Tender Relationship Specialty Start Date End Date Ilda Hicks APN [address] [address] PCP - General 03/29/08 documented as of this encounter
--- OUTSIDE RECORDS SUMMARY | 2024-11-18 17:40 | XMS_ITS | Encounter Summary ---
Author Organization [facility] Address [address] [place] [address] Care Team Providers Care Circus Rider Name Role Phone Ilda Hicks APN Primary Care Provider [phone] Encounter Details Date Type Department Care Team (Latest Contact Info) Description 09/28/2010 Ancillary Orders [facility] Pre-Registration [place] CALL TO MAKE APPOINTMENT ONLY [address] [place] [address] Jesenia Dubois MD NO ADDRESS ON FILE Other screening mammogram Social History Tobacco Use Types Packs/Day Years Used Date Smoking Tobacco: Never Alcohol Use Standard Drinks/Week Comments No 0 (1 standard drink = 0.6 oz pur e alcohol) Comments No Sex and Gender Information Value Date Recorded Sex Assigned at Not on file Legal Sex Female 2:47 AM PRESALES CONSULTANT Gender Identity Not on file Sexual Orientation Not on file documented as of this encounter Plan of Treatment Not on file documented as of this encounter Visit Diagnoses Diagnosis Other screening mammogram documented in this encounter Care Teams Circus Rider Relationship Specialty Start Date End Date Ilda Hicks APN [address] [address] PCP - General 03/29/08 documented as of this encounter
--- OUTSIDE RECORDS SUMMARY | 2024-11-18 17:40 | XMS_ITS | Encounter Summary ---
Author Organization [facility] Address [address] [place] [address] Care Team Providers Care Lpn Rn Name Role Phone Hicks, Ilda Forbes APN Primary Care Provider [phone] Encounter Details Date Type Department Care Team (Latest Contact Info) Description 08/23/2007 Outpatient Historical [facility] [address] [place] [address] [place] [address] Judson Yang MD NO ADDRESS ON FILE Malignant Neoplasm of Breast (Female), Unspecified Site (CMS/HCC); Unspecified Essential Hypertension; Personal History of Allergy to Sulfonamides Social History Tobacco Use Types Packs/Day Years Used Date Smoking Tobacco: Never Assessed Comments Unknown Sex and Gender Information Value Date Recorded Sex Assigned at Not on file Legal Sex Female 2:47 AM MEDICAID SERVICE COORDINATOR Gender Identity Not on file Sexual Orientation Not on file documented as of this encounter Plan of Treatment Not on file documented as of this encounter Procedures Procedure Name Priority Date/Time Associated Diagnosis Comments XR CHEST PA AND LATERAL 2 VW Routine 08/24/2007 3:21 PM CDT XR ABDOMEN 1 VW Routine 08/24/2007 3:20 PM CDT documented in this encounter Results * XR CHEST PA AND LATERAL (08/24/2007 3:21 PM CDT) Anatomical Region Laterality Modality Chest Other 08/24/2007 3:21 PM CDT Narrative 08/26/2007 9:26 PM CDT Exam: Chest - PA and Lateral Date/Time of Exam: Aug 24, 2007 3:21:07 PM History: Line placement. Findings: There are surgical clips in the right axillary region. The perihilar regions show linear densities that likely represent atelectasis. There is no pulmonary infiltrate. There is mild vascular congestion but no pleural effusion. Mild degenerative changes are noted of the mid-thoracic spine. There is a left-sided port device, by left IJ access, and the catheter distal tip is located at the SVC. - Dictated By: Humberto Aldrich M.D. Electronically Signed By: Humberto Aldrich M.D. Date Signed: 08/26/07 GRB Procedure Note Humberto Aldrich - 09/09/2007 Exam: Chest - PA and Lateral Date/Time of Exam: Aug 24, 2007 3:21:07 PM History: Line placement. Findings: There are surgical clips in the right axillary region. Theperihilar regions show linear densities that likely represent atelectasis. There is no pulmonaryinfiltrate. There is mild vascular congestion but no pleural effusion. Mild degenerative changes are noted ofthe mid-thoracic spine. There is a left-sided port device, by left IJ access, and the catheter distaltip is located at the SVC. - Dictated By: Humberto Aldrich M.D. Electronically Signed By: Humberto Aldrich M.D. Date Signed: 08/26/07 GRB Judson Yang MD DIAGNOSTIC IMAGING ORDERAB LES Final Result * XR ABDOMEN 1 VW (08/24/2007 3:20 PM CDT) Anatomical Region Laterality Modality Abdomen Other 08/24/2007 3:20 PM CDT Narrative 08/24/2007 3:21 PM CDT Finalized by interface cleanup utility. No report expected. Procedure Note 03/18/2008 Finalized by interface cleanup utility. No report expected. Judson Yang MD DIAGNOSTIC IMAGING ORDERAB LES Final Result documented in this encounter Visit Diagnoses Diagnosis Malignant neoplasm of breast (female), unspecified site Unspecified essential hypertension Personal history of allergy to sulfonamides documented in this encounter Care Teams Lpn Rn Relationship Specialty Start Date End Date Ilda Hicks APN [address] [place] [address] PCP - General 03/29/08 documented as of this encounter
--- OUTSIDE RECORDS SUMMARY | 2024-11-18 17:40 | XMS_ITS ---
Author Organization [facility] Address [address] 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
--- OUTSIDE RECORDS SUMMARY | 2024-11-18 17:40 | XMS_ITS | Encounter Summary ---
Author Organization [facility] Address [address] [place] [address] Care Team Providers Care Pan Operator Name Role Phone Hicks, Ilda Forbes APN Primary Care Provider [phone] Encounter Details Date Type Department Care Team (Late st Contact Info) Description 04/10/2009 Ancillary Orders [facility] [address] [facility] [address] [place] [address] Judsno Yang MD NO ADDRESS ON FILE Lump or Mass in Breast Social History Tobacco Use Types Packs/Day Years Used Date Smoking Tobacco: Never Alcohol Use Standard Drinks/Week Comments No 0 (1 standard drink = 0.6 oz pur e alcohol) Comments No Sex and Gender Information Value Date Recorded Sex Assigned at Not on file Legal Sex Female 2:47 AM GARMENT PRESSER Gender Identity Not on file Sexual Orientation Not on file documented as of this encounter Plan of Treatment Not on file documented as of this encounter Results * MAMMO UNILATERAL DIAG RIGHT (04/11/2009 10:40 AM GARMENT PRESSER) Anatomical Region Laterality Modality Breast Right Mammography Impressions 04/11/2009 3:04 PM GARMENT PRESSER : Right breast MRI is recommended to evaluate the findings on recent PET/CT scan. If that exam is not performed I would recommend a six-month follow-up ultrasound. Narrative 04/11/2009 3:04 PM GARMENT PRESSER RIGHT DIAGNOSTIC MAMMOGRAM: The patient is status post right mastectomy with a TRAM reconstruction as well as implant reconstruction. The patient had a recent PET scan of 04/07/2009, and the impression was that there were focal metabolic abnormalities in the right axilla and right breast which was low-level activity but could represent metastatic disease. The areas of involvement are right axilla, upper medial chest wall, and lower outer right breast near the chest wall. The patient was then referred to our facility for further evaluation. We obtained several mammographic images. There is some minimal soft tissue density extremely medial in location, but this is just anterior to the implant. The implant is very posterior in location and may be subpectoral. The TRAM comes across anteriorly, and the soft tissue density may in fact be located within the TRAM. This is linear, does not have suspicious features, but further evaluation sonographically was carried out. RIGHT BREAST ULTRASOUND: Sonographic evaluation was carried out in the right axillary region, and there were no suspicious masses identified. Scanning was then carried out inferior and lateral on the right, and again no suspicious masses were noted. And when scanning was carried out in the upper medial right breast, there is a smooth oval 13.4-mm solid nodule. Just below that, there is an area of shadowing which appears to be the rib. A BB was placed on the area of nodularity, and a mammographic image was obtained, and there is some nonspecific tissue density, again this is in the vicinity of the TRAM flap. My index of suspicion with regards to recurrence is low as the patient's original tumor was in the right upper outer quadrant. I reviewed the case with Dr. Betancourt, who stated that there is clearly some focal increased activity in the upper medial right breast and to a lesser extent in the axillary and lateral right breast. Perhaps MRI would be helpful. However, my index of suspicion is low with regard to the nodule. If the patient elects not to undergo MRI, a six-month follow-up ultrasound is recommended. An ultrasound-guided core biopsy could be performed there if this is clinically indicated, but from an imaging point of view, I feel a six-month follow-up ultrasound is a reasonable approach. A follow-up right breast ultrasound is recommended to assess probable postoperative changes in the upper medial right breast. Because of the areas of increased activity noted on recent PET/CT scan, I would recommend breast MRI. Dr. Yang and Dr. Dubois were notified of these results. Clinical correlation is recommended. The patient was given a result/recommendation letter. Procedure Note Azeb Aranda MD - 04/16/2009 RIGHT DIAGNOSTIC MAMMOGRAM: The patient is status post right mastectomy with a TRAM reconstruction aswell as implant reconstruction. The patient had a recent PET scan of04/07/2009, and the impression was that there were focal metabolicabnormalities in the right axilla and right breast which was low-levelactivity but could represent metastatic disease. The areas of involvementare right axilla, upper medial chest wall, and lower outer right breastnear the chest wall. The patient was then referred to our facility forfurther evaluation. We obtained several mammographic images. There is some minimal softtissue density extremely medial in location, but this is just anterior tothe implant. The implant is very posterior in location and may besubpectoral. The TRAM comes across anteriorly, and the soft tissuedensity may in fact be located within the TRAM. This is linear, does nothave suspicious features, but further evaluation sonographically wascarried out. RIGHT BREAST ULTRASOUND: Sonographic evaluation was carried out in the right axillary region, andthere were no suspicious masses identified. Scanning was then carried outinferior and lateral on the right, and again no suspicious masses werenoted. And when scanning was carried out in the upper medial rightbreast, there is a smooth oval 13.4-mm solid nodule. Just below that,there is an area of shadowing which appears to be the rib. A BB wasplaced on the area of nodularity, and a mammographic image was obtained,and there is some nonspecific tissue density, again this is in thevicinity of the TRAM flap. My index of suspicion with regards torecurrence is low as the patient's original tumor was in the right upperouter quadrant. I reviewed the case with Dr. Betancourt, who stated that there is clearlysome focal increased activity in the upper medial right breast and to alesser extent in the axillary and lateral right breast. Perhaps MRI wouldbe helpful. However, my index of suspicion is low with regard to thenodule. If the patient elects not to undergo MRI, a six-month follow-upultrasound is recommended. An ultrasound-guided core biopsy could beperformed there if this is clinically indicated, but from an imaging pointof view, I feel a six-month follow-up ultrasound is a reasonable approach.A follow- up right breast ultrasound is recommended to assess probablepostoperative changes in the upper medial right breast. Because of theareas of increased activity noted on recent PET/CT scan, I would recommendbreast MRI. Dr. Yang and Dr. Dubois were notified of these results.Clinical correlation is recommended. The patient was given a result/recommendation letter. IMPRESSION: Right breast MRI is recommended to evaluate the findings onrecent PET/CT scan. If that exam is not performed I would recommend asix-month follow-up ultrasound. us Judson Yang MD MAMMO ORDERABLES Final Res ult documented in this encounter Visit Diagnoses Diagnosis Lump or mass in breast Lump or mass in breast documented in this encounter Care Teams Pan Operator Relationship Specialty Start Date End Date Kurt, Ilda Forbes APN [address] [place] [id number] PCP - General 03/29/08 documented as of this encounter
--- OUTSIDE RECORDS SUMMARY | 2024-11-18 17:40 | XMS_ITS | Clinical Summary ---
Author Organization [facility] Address [address] Wilder: Epic Prelude ADT [place] [address] Care Team Providers Care Ranger Aide Name Role Phone Hicks, Ilda Forbes APN Primary Care Provider [phone] Allergies Active Allergy Reactions Criticality Noted Date Comments Adhesive Tape Rash Low 04/04/2008 Hydroxychloroquine Rash Low 01/10/2017 Other reaction(s): Unknown Medications ALPRAZolam (XANAX) 0.5 mg tablet Take 0.5 mg by mouth nightly as needed. Active DULoxetine (CYMBALTA) 60 mg Capsule, Delayed Release(E.C.) Take 60 mg by mouth daily. Active folic acid (FOLVITE) 1 mg tablet Take 1 mg by mouth daily. Active metoprolol tartrate (LOPRESSOR) 50 mg tablet Take 50 mg by mouth 2 times daily. Active methotrexate (RHEUMATREX) 2.5 mg Tablet Take 2.5 mg by mouth every 7 days. Takes on Tuesday Active fluocinonide (LIDEX) 0.05 % Ointment Apply to affected area see administration instructions. Active lisinopriL (PRINIVIL) 20 mg tablet Take 20 mg by mouth 2 times daily. Active OTHER prevagen Active cholecalcifero l 1,250 mcg (50,000 unit) Capsule Take 1 Capsule (50,000 Units) by mouth every 7 days. 8 Capsule 12/24/2022 2:40 PM SHREDDING MACHINE TENDER 3 Active docusate sodium (Colace) 100 mg capsule Take 1 Capsule (100 mg) by mouth 2 times daily. 60 Capsule 12/24/2022 2:40 PM SHREDDING MACHINE TENDER 3 Active famotidine (PEPCID) 20 mg tablet Take 1 Tablet (20 mg) by mouth 2 times daily. 80 Tablet 12/24/2022 2:40 PM SHREDDING MACHINE TENDER 3 Active tiZANidine (ZANAFLEX) 4 mg Tablet Take 1 Tablet (4 mg) by mouth every 6 hours as needed for Spasm. 30 Tablet 12/24/2022 2:40 PM SHREDDING MACHINE TENDER 3 Active naloxone (NARCAN) 4 mg/spray [place], Non-Aerosol EMERGENCY USE ONLY: Administer 1 spray (4 mg) in one nostril one time. May repeat in alternating nostrils every 2-3 min until responsive or EMS arrives. 2 Each 3 12/24/2022 2:40 PM SHREDDING MACHINE TENDER 3 Active Active Problems Problem Noted Date Diagnosed Date [...] upper-outer quadrant of fe male breast 10/02/2008 Resolved Problems Problem Noted Date Diagnosed Date Resolved Date Dermatomyositis 03/06/2009 03/06/2009 Encounters Date Type Department Care Team Description 10/17/2024 External Device Data ST[facility] ABSTRACTION Provider, Abstract 10/02/2024 External Device Data [facility] ABSTRACTION Provider, Abstract 08/29/2024 External Device Data [facility] ABSTRACTION Provider, Abstract 08/29/2024 External Device Data [facility] ABSTRACTION Provider, Abstract from Last 3 Months Immunizations Immunization Administration Dates Next Due (TDVAX)(7 YRS UP) TETANUS AN D DIPHTHERIA TOXOIDS, ADSORBED (2 LF OF TETANUS TOXOID AND 2 LF OF DIPHTHERIA TOXOID), 0.5ML (PF), IM 08/11/2004 Family History Medical History Relation Name Comments Heart Attack Father older than 60 Heart Disease Father Hypertension Father Stroke Father older than 60 Breast Cancer Maternal Grandmother risk a ssessment to genetic counselor-see media tab Breast Cancer Mother dx age 70- and self Colon Cancer Neg Hx Ovarian Cancer Neg Hx Relation Name Status Comments Daughter 1 Alive Daughter 2 Alive Daughter 3 Alive Father Maternal Grandmother Mother Alive Sister Alive Social History Tobacco Use Types Packs/Day Years Used Date Smoking Tobacco: Never Smokeless Tobacco: Never Tobacco Cessation:Counseling Given: Not Answered Alcohol Use Standard Drinks/Week Comments Yes 0 (1 standard drink = 0.6 oz pur e alcohol) occ Feeling Safe Answer Date Recorded Are you in a relationship wi th someone who hurts you emotionally and/or physically? No 12/23/2022 Food Insecurity Answer Date Recorded Patient needs follow up regarding: Not on file 04/16/2023 Transportation Needs Answer Date Record ed Patient needs follow up regarding: Not on file 04/16/2023 Housing Stability Answer Date Recorded Patient needs follow up regarding: Not on file 04/16/2023 Utility Needs Answer Date Recorded Patient needs follow up regarding: Not on file 04/16/2023 Comments No Sex and Gender Information Value Date Recorded Sex Assigned at Not on file Legal Sex Female 1:35 PM SHREDDING MACHINE TENDER Gender Identity Not on file Sexual Orientation Not on file Last Filed Vital Signs Vital Sign Reading Time Taken Comments Blood Pressure 142/82 02/01/2024 10:58 AM SHREDDING MACHINE TENDER Pulse 71 01/19/2023 9:52 AM SHREDDING MACHINE TENDER Temperature 36.2 C (97.2 F) 12/24/2022 12:12 PM SHREDDING MACHINE TENDER Respiratory Rate 16 12/24/2022 12:12 PM SHREDDING MACHINE TENDER Oxygen Saturation 98% 12/24/2022 12:12 PM SHREDDING MACHINE TENDER Inhaled Oxygen Concentration - - Weight 77.2 kg (170 lb 3.2 oz) 02/01/2024 10:58 AM SHREDDING MACHINE TENDER Height 149.9 cm (4' 11 ) 02/01/2024 10:58 AM SHREDDING MACHINE TENDER Body Mass Index 34.38 02/01/2024 10:58 AM SHREDDING MACHINE TENDER Plan of Treatment Health Maintenance Due Date Last Done Comments COLORECTAL SCREENING 1968 Colorectal Cancer Screening 1968 FIT-DNA Q 3 years 05/14/1995 FIT/FOBT Q 1 year 05/14/1995 Flex Sig/CT Colonography Q 5 years 05/14/1995 PNEUMOCOCCAL VACCINE 50+ YEA RS (1 of 1 - PCV) 2000 ZOSTER VACCINE (1 of 2) 2000 DTAP/TDAP/TD VACCINES (1 - Tdap) 08/12/2004 08/12/19 BREAST CANCER SCREENING 03/21/2018 03/21/19 18, 12/23/2014, 05/16/2013, Additional history exists OSTEOPOROSIS SCREENING 06/27/2023 06/26/2018 INFLUENZA VACCINE (#1) 2024 RSV VACCINE (60+ or ) (1 - 1-dose 75+ series) 2025 Medical Devices Implanted Type Area Senior Gamemaster Device Identifier Shelf Expiration Date Model / Serial / Lot Comp Fem Attune Poro Cr Sz 4 Rt Cmntlss 1504-01-204 - [id number] Implanted:Qty: 1 on 12/23/2022 by Thomas Franco MD at [facility] Knee Right: Knee [employer]- [employer] [id number] 07/15/2031 [id number] / / [id number] - Mesh Ethicon Hernia - 1 - Mesh Proceed [id number] Implanted:Qty: 1 on 05/15/2009 Mesh N/A: Abdomen [employer]- [employer] 09/14/2010 PCDG1 / / [id number] Plate Dvr Nrw Loc Rt 1318-11-050 - [id number] Implanted:Qty: 1 on 09/13/2017 by Chet Russell MD Plate Right: Wrist VIC BIOMET [id number] / / Screw Dvr Loc 2.7x14mm 1312-27-114 - [id number] Implanted:Qty: 1 on 09/13/2017 by Chet Russell MD Screw Right: Wrist VIC [employer]ET 1312-27-114 / / [id number] Screw Dvr Loc 2.7x20mm 131-120 - [id number] Implanted:Qty: 1 on 09/13/2017 by Chet Russell MD Screw Right: Wrist VIC [employer]ET 1312-27-120 / / [id number] Screw Dvr Loc 2.7x20mm [facility]-120 - [id number] Implanted:Qty: 1 on 09/13/2017 by Chet Russell MD Screw Right: Wrist VIC BIOMET 1312--120 / / [id number] Screw Dvr Loc 2.7x22mm [facility] - [id number] Implanted:Qty: 1 on 09/13/2017 by Chet Russell MD Screw Right: Wrist VIC BIOMET 13104-12-122 / / [id number] Screw Dvr Loc 2.7x22mm [facility] - [id number] Implanted:Qty: 1 on 09/13/2017 by Chet Russell MD Screw Right: Wrist VIC BIOMET 131227-122 / / [id number] Allgr Vivigen Matrix 5ml -1600-002 - [id number] Implanted:Qty: 1 on 09/13/2017 by Chet Russell MD Tissue Right: Wrist [facility] 01/12/2018 BL-1600-002 / / [id number] Description:[id number] 2.7x16 Screw [id number] Implanted:Qty: 1 on 09/13/2017 by Chet Russell MD Right: Wrist 09/13/2018 BIOMET - SCREW / / [id number] Screw 2.7x12 [id number] Implanted:Qty: 1 on 09/13/2017 by Chet Russell MD Right: Wrist 09/13/2018 BIOMET - [id number] / / [id number] Screw 2.7x12 [id number] Implanted:Qty: 1 on 09/13/2017 by Chet Russell MD Right: Wrist 09/13/2018 BIOMET - [id number] / / [id number] Tibial Base Size 4 Implanted:Qty: 1 on 12/23/2022 by Thomas Franco MD at [facility] Right: Knee 10/14/2032 DEPUY-1506- 21-004 / / [id number] Tibial Insert Implanted:Qty: 1 on 12/23/2022 by Thomas Franco MD at [facility] Right: Knee 08/13/2030 DEPUY-1520- 20-408 / / [id number] Explanted Type Area Senior Gamemaster Device Identifier Shelf Expiration Date Model / Serial / Lot Wire K Ss 1.6mm [id number] - [id number] Explanted:Qty: 1 on 09/13/2017 Wire Right: Hand VIC BIOMET [id number] / / [id number] Wire K Ss 1.6mm [id number] - [id number] Explanted:Qty: 1 on 09/13/2017 Wire Right: Hand VIC BI[employer]ET [id number] / / [id number] Wire K Ss 1.6mm [id number] - [id number] Explanted:Qty: 1 on 09/13/2017 Wire Right: Hand VIC [employer] [id number] / / [id number] Locking Smooth Peg 202, 18 [id number] Implanted:08/16 by Chet Russell MD (Quantity not on file) Explanted:Qty: 1 on 09/13/2017 Right: Wrist 08/14/2018 BIOMET - [id number] / / [id number] Locking Smooth Peg 202, 18 [id number] Implanted:08/16 by Chet Russell MD (Quantity not on file) Explanted:Qty: 1 on 09/13/2017 Right: Wrist 08/14/2018 BIOMET - [id number] / / [id number] Procedures Procedure Name Priority Date/Time Associated Diagnosis Comments MAMMO SCRN UNI LEFT W OR WO CAD Routine 12/23/2014 11:30 AM SHREDDING MACHINE TENDER Visit for screening mammogram from Last 3 Months or Most Recently Relevant to Health Maintenance Results * MAMMO SCRN UNI LEFT W OR WO CAD (12/23/2014 11:30 AM SHREDDING MACHINE TENDER) Anatomical Region Laterality Modality Breast Left Other Narrative 12/24/2014 1:35 PM SHREDDING MACHINE TENDER Left Mammogram Reason for Exam: Screening Comparison: Compared to: 05/16/2013 MAMMO DIGITAL SCREEN UNI LEFT, 11/29/2011 MAMMO DIGITAL SCREEN UNI LEFT, 09/29/2010 MAMMO DIGITAL SCREEN UNI LEFT, 11/05/2009 MRI BREAST W WO CONT BILAT, 08/11/2009 MAMMO BREAST US LT, 08/11/2009 MAMMO DIGITAL DIAG UNI LEFT, 04/15/2009 MRI BREAST W WO CONT BILAT, 04/11/2009 MAMMO BREAST US RT, 04/11/2009 MAMMO UNILATERAL DIAG RIGHT, 08/19/2008 MAMMO SCREENING UNILATERAL LEFT, 06/15/2007 MRI BREAST W CONTRAST BILAT, 06/09/2007 US BIOPSY BREAST RIGHT, 06/09/2007 US BREAST UNILATERAL RIGHT Findings: Left CC and MLO views were obtained. This examination was reviewed with the aid of a computer-aided detection system(CAD). The breast tissue density is average. No significant new findings since the prior mammogram(s) Procedure Note Nae Lwoe MD - 07/02/2021 Left Mammogram Reason for Exam: Screening Comparison: Compared to: 05/16/2013 MAMMO DIGITAL SCREEN UNI LEFT, 11/29/2011 MAMMO DIGITAL SCREEN UNI LEFT, 09/29/2010 MAMMO DIGITAL SCREEN UNI LEFT, 11/05/2009 MRI BREAST W WO CONT BILAT, 08/11/2009 MAMMO BREAST US LT, 08/11/2009 MAMMO DIGITAL DIAG UNI LEFT, 04/15/2009 MRI BREAST W WO CONT BILAT, 04/11/2009 MAMMO BREAST US RT, 04/11/2009 MAMMO UNILATERAL DIAG RIGHT, 08/19/2008 MAMMO SCREENING UNILATERAL LEFT, 06/15/2007 MRI BREAST W CONTRAST BILAT, 06/09/2007 US BIOPSY BREAST RIGHT, 06/09/2007 US BREAST UNILATERAL RIGHT Findings: Left CC and MLO views were obtained. This examination was reviewed with the aid of a computer-aided detection system(CAD). The breast tissue density is average. No significant new findings since the prior mammogram(s) us Jesenia Dubois MD MAMMO ORDERABLES Final Result from Last 3 Months or Most Recently Relevant to Health Maintenance [place] [address] [place] [id number] * Guarantor: KASSI RODRIGUEZ Account Type Relation to Patient Date of Phone Billing Address Personal/Family [address] [place] [address] RX INFOCROSSING Medicaid RX [employer] RX Member Subscriber Plan / Payer (Ef fective 2020-Present) Name:Kassi Rodriguez Relation to Subscriber:Self Name:Kassi Rodriguez Payer ID:Not on file Group ID:[id number] Type:RX Medicare Part D Address: [place] Advance Directives For more information, please contact: [phone] * Full Code (Latest Code Status on File) Date Activated Date Inactivated Comments 12/23/2022 11:48 AM 12/24/2022 4:58 PM Care Teams Ranger Aide Relationship Specialty Start Date End Date Hicks, Ilda Forbes APN [address] [place] [id number] PCP - General 03/29/08
--- OUTSIDE RECORDS SUMMARY | 2024-11-18 17:40 | XMS_ITS | Encounter Summary ---
Author Organization [facility] Address [address] [place] [address] Care Team Providers Care Guitar Teacher Name Role Phone Hicks, Ilda Forbes APN Primary Care Provider Encounter Details Date Type Department Care Team (Latest Contact Info) Description 08/24/2007 [facility] [address] [place] [phone] Jesenia Dubois MD NO ADDRESS ON FILE Malignant Neoplasm of Breast (Female), Unspecified Site (CMS/HCC) Social History Tobacco Use Types Packs/Day Years Used Date Smoking Tobacco: Never Assessed Comments Unknown Sex and Gender Information Value Date Recorded Sex Assigned at Not on file Legal Sex Female 2:47 AM 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 Gender Identity Not on file Sexual Orientation Not on file documented as of this encounter Plan of Treatment Not on file documented as of this encounter Procedures Procedure Name Priority Date/Time Associated Diagnosis Comments NM CARDIAC MUGA SCAN Routine 08/24/2007 1:06 PM CDT documented in this encounter Results * NM CARDIAC MUGA SCAN (08/24/2007 1:06 PM CDT) 08/24/2007 1:06 PM CDT Narrative INTERFACE SYSTEM - 08/24/2007 6:06 PM CDT Radionuclide Cardiac Function Examination at Rest, Gated First Pass, and Gated Equilibrium Procedures: Radiopharmaceutical: Tc-99m (technetium-99m) Ultratag labeled autologous erythrocytes Dose: 31.6 mCi Reason for Consultation: Breast carcinoma for precardiotoxic chemotherapy evaluation of cardiac function QUANTITATIVE DATA DATE: 08/24/2007 Left Ventricle: EF (55-75%): 71 PFR (>2.50 EDV/sec): 4.73 TPF (<150 msec): 186 Right Ventricle:: EF (%): 62 SVR (0.85-1.25): 0.90 Right ventricular function was initially evaluated with gated first pass radionuclide angiocardiography followed by whole heart evaluation using gated equilibrium radionuclide angiocardiography in multiple projections at a heart rate of 96 beats per minute. Both ventricular chambers are of normal size and regional contractility. The atria and great vessels are unremarkable. Impression: Normal biventricular regional and global systolic function. - Dictated By: Humberto Betancourt M.D. Electronically Signed By: Humberto Betancourt M.D. Date Signed: 08/24/07 Procedure Note Humberto Betancourt - 09/09/2007 Radionuclide Cardiac Function Examination at Rest, Gated First Pass, andGated Equilibrium Procedures: Radiopharmaceutical: Tc-99m (technetium-99m) Ultratag labeled autologouserythrocytes Dose: 31.6 mCi Reason for Consultation: Breast carcinoma for precardiotoxic chemotherapyevaluation of cardiac function QUANTITATIVE DATA DATE: 08/24/2007 Left Ventricle: EF (55-75%): 71 PFR (>2.50 EDV/sec): 4.73 TPF (<150 msec): 186 Right Ventricle:: EF (%): 62 SVR (0.85-1.25): 0.90 Right ventricular function was initially evaluated with gated first passradionuclide angiocardiography followed by whole heart evaluation using gated equilibrium radionuclideangiocardiography in multiple projections at a heart rate of 96 beats per minute. Both ventricularchambers are of normal size and regional contractility. The atria and great vessels are unremarkable. Impression: Normal biventricular regional and global systolic function. - Dictated By: Humberto Betancourt M.D. Electronically Signed By: Humberto Betancourt M.D. Date Signed: 08/24/07 Jesenia Dubois MD NM ORDERABLES Final Result INTERFACE SYSTEM Refer to clinic/hospital department documented in this encounter Visit Diagnoses Diagnosis Malignant neoplasm of breast (female), unspecified site documented in this encounter Care Teams Guitar Teacher Relationship Specialty Start Date End Date Ilda Hicks APN [facility] [address] [address] PCP - General 03/29/08 documented as of this encounter
--- OUTSIDE RECORDS SUMMARY | 2024-11-18 17:40 | XMS_ITS | Encounter Summary ---
Author Organization [facility] Address [address] [place] [address] Care Team Providers Care Officer Lieutenant Name Role Phone Ilda Hicks APN Primary Care Provider [phone] Encounter Details Date Type Department Care Team (Latest Contact Info) Description 02/20/2003 Outpatient Historical [facility] [address] [facility] [address] [place] [id number] Nae Lowe MD NO ADDRESS ON FILE SYMPTOMS IN BREAST NEC (Primary Dx) Social History Tobacco Use Types Packs/Day Years Used Date Smoking Tobacco: Never Assessed Comments Unknown Sex and Gender Information Value Date Recorded Sex Assigned at Not on file Legal Sex Female 2:47 AM NOTEMAN Gender Identity Not on file Sexual Orientation Not on file documented as of this encounter Plan of Treatment Not on file documented as of this encounter Visit Diagnoses Diagnosis Other sign and symptom in breast- Primary documented in this encounter Care Teams Officer Lieutenant Relationship Specialty Start Date End Date Ilda Hicks APN [address] [facility] [address] [place] [address] PCP - General 03/29/08 documented as of this encounter
--- OUTSIDE RECORDS SUMMARY | 2024-11-18 17:40 | XMS_ITS | Encounter Summary ---
Author Organization [facility] Address [address] [place] [address] Care Team Providers Care Baby Formula Mixer Name Role Phone Ilda Hicks APN Primary Care Provider [phone] Encounter Details Date Type Department Care Team (Late st Contact Info) Description 11/13/2001 Outpatient Historical [facility] [address] [facility] [address] [place] [phone] Azeb Aranda MD NO ADDRESS ON FILE SCREENING MAMM-MAILG NEOPL-OTHER (Primary Dx) Social History Tobacco Use Types Packs/Day Years Used Date Smoking Tobacco: Never Assessed Comments Unknown Sex and Gender Information Value Date Recorded Sex Assigned at Not on file 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
--- OUTSIDE RECORDS SUMMARY | 2024-11-18 17:40 | XMS_ITS | Encounter Summary ---
Author Organization [facility] Address [address] [place] [address] Care Team Providers Care Hollow Core Door Frame Assembler Name Role Phone Ilda Hicks APN Primary Care Provider [phone] Encounter Details Date Type Department Care Team (Late st Contact Info) Description 06/09/2007 Outpatient Historical [facility] [address] [facility] [address] [place] [address] Social History Tobacco Use Types Packs/Day Years Used Date Smoking Tobacco: Never Assessed Comments Unknown Sex and Gender Information Value Date Recorded Sex Assigned at Not on file 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
--- OUTSIDE RECORDS SUMMARY | 2024-11-18 17:40 | XMS_ITS | Encounter Summary ---
Author Organization [facility] Address [address] [place] [address] Care Team Providers Care Client Care Representative Name Role Phone Ilda Hicks APN Primary Care Provider [phone] Encounter Details Date Type Department Care Team (Latest Contact Info) Description 11/07/2000 Outpatient Historical [facility] [address] [facility] [address] [place] [phone] Kvng Lyn MD NO ADDRESS ON FILE Other screening mammogram (Primary Dx) Social History Tobacco Use Types Packs/Day Years Used Date Smoking Tobacco: Never Assessed Comments Unknown Sex and Gender Information Value Date Recorded Sex Assigned at Not on file 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
--- OUTSIDE RECORDS SUMMARY | 2024-11-18 17:40 | XMS_ITS | Encounter Summary ---
Author Organization [facility] Address [address] [place] [address] Care Team Providers Care Packerhead Machine Operator Name Role Phone Hicks, Ilda Forbes APN Primary Care Provider [phone] Encounter Details Date Type Department Care Team (Late st Contact Info) Description 06/27/2007 Outpatient Historical [facility] [address] [place] [address] [place] [address] Judson Yang MD NO ADDRESS ON FILE Social History Tobacco Use Types Packs/Day Years Used Date Smoking Tobacco: Never Assessed Comments Unknown Sex and Gender Information Value Date Recorded Sex Assigned at Not on file 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 Gender Identity Not on file Sexual Orientation Not on file documented as of this encounter Plan of Treatment Not on file documented as of this encounter Procedures Procedure Name Priority Date/Time Associated Diagnosis Comments CBC WITH DIFFERENTIAL Stat 06/27/2007 3:35 PM CDT COMPREHENSIVE METABOLIC PANEL Stat 06/27/2007 3:35 PM CDT documented in this encounter Results * (ABNORMAL) CBC WITH DIFFERENTIAL (06/27/2007 3:35 PM CDT) RBC 4.55 4.20 - 5.40 Mil/ul [facility] LYMPHOCYTES 22.8(L) 24.0 - 44.0 % [facility] MCHC 32.6 30.0 - 35.0 g/dL [facility] LYMPHOCYTE ABSOLUTE 1.8 1.2 - 4.0 K/ul [facility] MCV 84.4 84.0 - 103.0 Fl [facility] MPV 11.2 8.9 - 12.8 Fl [facility] BASOPHILS ABSOLUTE 0.1 0.0 - 0.2 K/ul [facility] BASOPHILS 0.6 0.0 - 1.0 % [facility] HEMOGLOBIN 12.5 12.0 - 16.0 g/dL [facility] RDW 14.5 11.0 - 14.5 % [facility] MONOCYTE ABSOLUTE 0.6 0.1 - 0.6 K/ul [facility] MONOCYTES 8.1 2.0 - 10.0 % [facility] WBC 8.0 4.8 - 10.8 K/ul [facility] MCH 27.5 27.0 - 34.0 pg [facility] NEUTROPHIL ABSOLUTE 5.3 2.0 - 8.0 K/ul [facility] NEUTROPHILS 66.6 42.2 - 75.2 % [facility] HEMATOCRIT 38.4 36.0 - 46.0 % [facility] EOSINOPHILS 1.9 0.0 - 7.0 % [facility] PLATELETS 380 140 - 440 K/ul [facility] EOSINOPHIL ABSOLUTE 0.2 0.0 - 0.7 K/ul [facility] Blood specimen (specimen) 06/27/2007 3:35 PM CDT 06/27/2007 4:04 PM CDT us Judson Yang MD HEMATOLOGY ORDERABLES Marilin flores Result [facility] CLIA# [id number] [address] [place] [address] * COMPREHENSIVE METABOLIC PANEL (06/27/2007 3:35 PM CDT) ALBUMIN 4.2 3.5 - 5.0 g/dL [facility] POTASSIUM 3.8 3.5 - 5.0 mEq/L [facility] GLOBULIN (CALC) 3.4 2.4 - 3.9 g/dL [facility] CREATININE 0.8 0.7 - 1.2 mg/dL [facility] CALCIUM 9.6 8.4 - 10.5 mg/dL [facility] OSMOLALITY, CALCULATED 284 275 - 295 mOsm/Kg [facility] ALT 15 4 - 36 IU/L [facility] GLUCOSE 87 70 - 110 mg/dL [facility] CHLORIDE 105 95 - 110 mEq/L [facility] ALBUMIN/GLOBULIN RATIO 1.2 1.0 - 2.3 [facility] ALKALINE PHOSPHATASE 79 25 - 100 U/L [facility] SODIUM 138 136 - 145 mEq/L [facility] BILIRUBIN TOTAL 0.3 0.3 - 1.2 mg/dL [facility] TOTAL PROTEIN 7.6 6.3 - 8.2 g/dL [facility] BUN 15 7 - 17 mg/dL [facility] AST 19 8 - 33 U/L [facility] CO2 25 22 - 32 mmol/l [facility] ANION GAP 12 9 - 20 mEq/L [facility] Blood specimen (specimen) 06/27/2007 3:35 PM CDT 06/27/2007 4:04 PM CDT us Judson Yang MD CHEMISTRY ORDERABLES Final Result [facility] CLIA# [id number] [address] [place] [address] documented in this encounter Visit Diagnoses Not on filedocumented in this encounter Care Teams Packerhead Machine Operator Relationship Specialty Start Date End Date Kurt, Ilda Forbes APN [facility] [address] [address] PCP - General 03/29/08 documented as of this encounter
--- OUTSIDE RECORDS SUMMARY | 2024-11-18 17:40 | XMS_ITS | Encounter Summary ---
Author Organization [facility] Address [address] [place] [address] Care Team Providers Care Paint Stock Clerk Name Role Phone Hicks, Ilda Forbes APN Primary Care Provider [phone] Encounter Details Date Type Department Care Team (Late st Contact Info) Description 07/18/2017 Ancillary Orders [facility] [address] [place] [phone] 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 External Provider [facility] DIAGNOSTIC IMAGING ORDERAB LES Final Result * XR PRIOR STUDY (06/02/2017 4:35 PM CDT) Narrative 07/18/2017 8:57 AM CDT This exam was auto finalized to allow images to be scanned to PACS. us External Provider [facility] DIAGNOSTIC IMAGING ORDERAB LES Final Result * XR PRIOR STUDY (05/18/2017 1:10 PM CDT) Narrative 07/18/2017 8:58 AM CDT This exam was auto finalized to allow images to be scanned to PACS. us External Provider [facility] DIAGNOSTIC IMAGING ORDERAB LES Final Result * XR PRIOR STUDY (05/12/2017 9:15 AM CDT) Narrative 07/18/2017 8:58 AM CDT This exam was auto finalized to allow images to be scanned to PACS. us External Provider [facility] DIAGNOSTIC IMAGING ORDERAB LES Final Result documented in this encounter Visit Diagnoses Diagnosis Pain Generalized pain Pain Generalized pain Pain Generalized pain Pain Generalized pain Pain Generalized pain documented in this encounter Care Teams Paint Stock Clerk Relationship Specialty Start Date End Date Ilda Hicks APN [facility] [address] [address] PCP - General 03/29/08 documented as of this encounter
--- OUTSIDE RECORDS SUMMARY | 2024-11-18 17:40 | XMS_ITS | Encounter Summary ---
Author Organization [facility] Address [address] [place] [address] Care Team Providers Care Forensic Sergeant Name Role Phone Ilda Hicks APN Primary Care Provider Encounter Details Date Type Department Care Team ([facility] st Contact Info) Description 10/21/2005 Outpatient Historical [facility] Dermatology- 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
--- OUTSIDE RECORDS SUMMARY | 2024-11-18 17:40 | XMS_ITS | Encounter Summary ---
Author Organization [facility] Address [address] [place] [address] Care Team Providers Care Accountant Controller Name Role Phone Ilda Hicks APN Primary Care Provider [phone] Encounter Details Date Type Department Care Team (Late st Contact Info) Description 06/03/2008 Ancillary Orders [facility] Cancer and Hematology [address] [place] [address] [address] [place] [phone] Jesenia Dubois MD NO ADDRESS ON FILE Screening Mammogram Social History Tobacco Use Types Packs/Day Years Used Date Smoking Tobacco: Never Alcohol Use Standard Drinks/Week Comments No 0 (1 standard drink = 0.6 oz pur e alcohol) Comments Unknown Sex and Gender Information Value Date Recorded Sex Assigned at Not on file 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
--- OUTSIDE RECORDS SUMMARY | 2024-11-18 17:40 | XMS_ITS | Encounter Summary ---
Author Organization [facility] Address [address] [place] [address] Care Team Providers Care Sed Special Education Teacher Name Role Phone Hicks, Ilda Forbes CARMINE Primary Care Provider [phone] Encounter Details Date Type Department Care Team (Late st Contact Info) Description 06/14/2007 Outpatient Historical [facility] Imaging Services [address] [place] [phone] Judson Yang MD NO ADDRESS ON FILE Social History Tobacco Use Types Packs/Day Years Used Date Smoking Tobacco: Never Assessed Comments Unknown Sex and Gender Information Value Date Recorded Sex Assigned at Not on file 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 Female 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 Gender Identity Not on file Sexual Orientation Not on file documented as of this encounter Plan of Treatment Not on file documented as of this encounter Procedures Procedure Name Priority Date/Time Associated Diagnosis Comments MRI BREAST W CONTRAST BILAT Routine 06/15/2007 1:04 PM CDT documented in this encounter Results * MRI BREAST W CONTRAST BILAT (06/15/2007 1:04 PM CDT) Anatomical Region Laterality Modality Breast Bilateral Other 06/15/2007 1:04 PM CDT Narrative 06/15/2007 1:05 PM CDT ATTENTION: The findings of this examination are reported in their entirety in this patient's records on the [facility] system. [place] is referred to that document. Dictated By: Nae Lowe M.D. Electronically Signed By: Nae Lwoe M.D. Date Signed: 06/18/07 Procedure Note Nae Lowe - 06/18/2007 ATTENTION: The findings of this examination are reported in theirentirety in this patient's records on the [facility] system. [place] is referred to that document. Dictated By: Nae Lowe M.D. Electronically Signed By: Nae Lowe M.D. Date Signed: 06/18/07 us Judson Yang MD MR ORDERABLES Final Resu lt documented in this encounter Visit Diagnoses Not on filedocumented in this encounter Care Teams Sed Special Education Teacher Relationship Specialty Start Date End Date Kurt, Ilda Forbes APN [address] [place] [address] PCP - General 03/29/08 documented as of this encounter
--- OUTSIDE RECORDS SUMMARY | 2024-11-18 17:40 | XMS_ITS | Encounter Summary ---
Author Organization [facility] Address [address] [address] Care Team Providers Care Network Intern Name Role Phone Hicks, Ilda Forbes APN Primary Care Provider [phone] Reason for Referral * Outpatient Services (Routine) - Closed Specialty Diagnoses / Procedures Referred By Kaya beltran Referred To Contact Diagnoses Other screening mammogram Procedures MAMMO DIGITAL SCREEN UNI LEFT Jesenia Dubois MD NO ADDRESS ON FILE [facility] [place] CALL TO MAKE APPOINTMENT ONLY [address] [place] [facility] [place] [address] Phone: tel: fax: Referral ID Status Reason Start Date Expiration Date V isits Requested Visits Authorized [id number] Closed [facility] 10/12/2011 10/11/2012 1 1 Encounter Details Date Type Department Care Team (Latest Contact Info) Description 10/12/2011 Ancillary Orders [facility] Pre-Registration [place] CALL TO MAKE APPOINTMENT ONLY [address] [place] [address] Jesenia Dubois MD NO ADDRESS ON FILE Other screening mammogram Social History Tobacco Use Types Packs/Day Years Used Date Smoking Tobacco: Never Alcohol Use Standard Drinks/Week Comments No 0 (1 standard drink = 0.6 oz pur e alcohol) rare Comments No Sex and Gender Information Value Date Recorded Sex Assigned at Not on file 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 Routine annual screening exams recommended. Narrative 11/30/2011 9:12 AM CDT Left Mammogram Reason for Exam: Screening Comparison: Comparison is made with the prior exam(s) dated 2010. Findings: Left CC and MLO views were obtained in this patient who underwent right mastectomy in 2007. This examination was reviewed with the aid of a computer-aided detection system(CAD). The breast tissue density is average. No significant new findings since the prior mammogram(s). There are no signs of malignancy. Procedure Note Emma Welch MD - 11/30/2011 Left Mammogram Reason for Exam: Screening Comparison: Comparison is made with the prior exam(s) dated 2010. Findings: Left CC and MLO views were obtained in this patient who underwent rightmastectomy in 2007. This examination was reviewed with the aid of a computer-aided detectionsystem(CAD). The breast tissue density is average. No significant new findings since the prior mammogram(s). There are no signs of malignancy. IMPRESSION: Benign left mammogram in this patient who has had a right mastectomy.Routine annual screening exams recommended. Jesenia Dubois MD MAMMO ORDERABLES Final Result documented in this encounter Visit Diagnoses Diagnosis Other screening mammogram Other screening mammogram documented in this encounter Care Teams Network Intern Relationship Specialty Start Date End Date Ilda Hicks APN [address] [address] PCP - General 03/29/08 documented as of this encounter
--- OUTSIDE RECORDS SUMMARY | 2024-11-18 17:40 | XMS_ITS | Encounter Summary ---
Author Organization [facility] Address [address] [place] [address] Care Team Providers Care Sludge Filtration Attendant Name Role Phone Ilda Hicks APN Primary Care Provider [phone] Encounter Details Date Type Department Care Team (Late st Contact Info) Description 02/04/2003 Outpatient Historical [facility] [address] [place] [address] Judson Yang MD NO ADDRESS ON FILE OT ABNORMAL RADIOLOG EXAM BREAST (Primary Dx) Social History Tobacco Use Types Packs/Day Years Used Date Smoking Tobacco: Never Assessed Comments Unknown Sex and Gender Information Value Date Recorded Sex Assigned at Not on file 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 [facility] 4 [place] [address] PCP - General 03/29/08 documented as of this encounter
--- OUTSIDE RECORDS SUMMARY | 2024-11-18 17:40 | XMS_ITS | Encounter Summary ---
Author Organization [email or web address] [facility] Address [address] [place] [address] Care Team Providers Care Knurling Machine Tender Name Role Phone Hicks, Ilda Forbes APN Primary Care Provider [phone] Reason for Referral * Outpatient Services (Routine) - Closed Specialty Diagnoses / Procedures Referred By Kaya beltran Referred To Contact Diagnoses Other screening mammogram Procedures MAMMO DIGITAL SCREEN UNI LEFT Jesenia Dubois MD NO ADDRESS ON FILE [facility] Pre-Registration [place] CALL TO MAKE APPOINTMENT ONLY [address] [place] [facility] [place] [address] Phone: tel: fax: Referral ID Status Reason Start Date Expiration Date Visits Re quested Visits Authorized [id number] Closed 05/09/2013 06/09/2014 1 1 Encounter Details Date Type Department Care Team (Latest Contact Info) Description 05/09/2013 Ancillary Orders [facility] Pre-Registration [place] CALL TO MAKE APPOINTMENT ONLY [address] [place] [address] Jesenia Dubois MD NO ADDRESS ON FILE Other screening mammogram (Primary Dx) Social History Tobacco Use Types Packs/Day Years Used Date Smoking Tobacco: Never Alcohol Use Standard Drinks/Week Comments No 0 (1 standard drink = 0.6 oz pur e alcohol) rare Comments No Sex and Gender Information Value Date Recorded Sex Assigned at Not on file 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 Gender Identity Not on file Sexual Orientation Not on file Occupation Industry Job Start Date Job End Date Not on file Not on file Not on file Not on file documented as of this encounter Plan of Treatment Not on file documented as of this encounter Results * MAMMO DIGITAL SCREEN UNI LEFT (05/16/2013 11:47 AM CDT) Anatomical Region Laterality Modality Breast Left Mammography Narrative 05/17/2013 9:06 AM CDT Left Mammogram Reason for Exam: Screening Comparison: Compared to: 11/29/2011 MAMMO DIGITAL SCREEN UNI LEFT, 09/29/2010 MAMMO DIGITAL SCREEN UNI LEFT, 08/11/2009 MAMMO DIGITAL DIAG UNI LEFT, 08/19/2008 MAMMO SCREENING UNILATERAL LEFT Findings: Left CC and MLO views were obtained. This examination was reviewed with the aid of a computer-aided detection system(CAD). The breast tissue density is average. No significant new findings since the prior mammogram(s) Procedure Note Nae Lowe MD - 05/17/2013 Left Mammogram Reason for Exam: Screening Comparison: Compared to: 11/29/2011 MAMMO DIGITAL SCREEN UNI LEFT,09/29/2010 MAMMO DIGITAL SCREEN UNI LEFT, 08/11/2009 MAMMO DIGITAL DIAGUNI LEFT, 08/19/2008 MAMMO SCREENING UNILATERAL LEFT Findings: Left CC and MLO views were obtained. This examination was reviewed with the aid of a computer-aided detectionsystem(CAD). The breast tissue density is average. No significant new findings since the prior mammogram(s) Jesenia Dubois MD MAMMO ORDERABLES Final Result documented in this encounter Visit Diagnoses Diagnosis Other screening mammogram- Primary documented in this encounter Care Teams Knurling Machine Tender Relationship Specialty Start Date End Date Ilda Hicks APN [facility] [address] [address] PCP - General 03/29/08 documented as of this encounter
--- OUTSIDE RECORDS SUMMARY | 2024-11-18 17:40 | XMS_ITS | Encounter Summary ---
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) Procedures MAMMO DIGITAL DIAG UNI LEFT Judson Yang MD NO ADDRESS ON FILE Referral ID Status Reason Start Date Expiration Date Visits Re quested Visits Authorized [id number] Closed 08/11/2009 02/07/2010 1 1 Encounter Details Date Type Department Care Team (Late st Contact Info) Description 08/11/2009 Ancillary Orders [facility] [address] [place] [address] Judson Yang MD NO ADDRESS ON FILE Malignant Neoplasm of Upper-Outer Quadrant of Female Breast (CMS/HCC) Social History Tobacco Use Types Packs/Day Years Used Date Smoking Tobacco: Never Alcohol Use Standard Drinks/Week Comments No 0 (1 standard drink = 0.6 oz pur e alcohol) Comments No Sex and Gender Information Value Date Recorded Sex Assigned at Not on file 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 She also underwent left breast reduction, also in 2007. She reports a lump in the left upper outer quadrant for several months, but she feels that it has changed in the last two weeks and has now become sore. Comparison is made with multiple prior examinations, the most recent dated 08/19/08. Comparison to two prior MRIs was performed, the more recent dated 04/15/09. FINDINGS: The area of palpable concern is designated with a radiopaque marker. No suspicious interval change in this region is identified. The breast tissue is primarily fatty. No suspicious masses or microcalcifications have developed in the left breast. This digital mammogram was also analyzed by the Computer Aided Detection System (CAD), BigTwister, Version 8.3. Ultrasound of the left breast was performed to evaluate the area of palpable concern. No suspicious findings are identified by focused examination in the palpable region. There is a 1.5 cm lipoma subjacent to the skin in the 2 o'clock position, 1.0 cm from the nipple, but this is slightly remote from the palpable site. No suspicious findings are identified by ultrasound. CONCLUSION: No suspicious mammographic or sonographic findings in the area of palpable concern indicated by the patient. This information was correlated with the most recent breast MRI. The patient was to have returned for a six-month follow-up MRI in September or October, and the recommendation is to keep that appointment to confirm that the areas identified on the prior MRI are stable. Results and recommendations were discussed with the patient, who is in agreement with this plan. The patient received a result/recommendation letter. Procedure Note Leora Padilla MD - 08/15/2009 LEFT DIGITAL DIAGNOSTIC MAMMOGRAM AND LEFT BREAST ULTRASOUND: HISTORY: The patient is status post right mastectomy in 2007. She alsounderwent left breast reduction, also in 2007. She reports a lump in theleft upper outer quadrant for several months, but she feels that it haschanged in the last two weeks and has now become sore. Comparison is made with multiple prior examinations, the most recent dated08/19/08. Comparison to two prior MRIs was performed, the more recentdated 04/15/09. FINDINGS: The area of palpable concern is designated with a radiopaquemarker. No suspicious interval change in this region is identified. Thebreast tissue is primarily fatty. No suspicious masses ormicrocalcifications have developed in the left breast. This digital mammogram was also analyzed by the Computer Aided DetectionSystem (CAD), [employer]ol[employer] ImageChecker, Version 8.3. Ultrasound of the left breast was performed to evaluate the area ofpalpable concern. No suspicious findings are identified by focusedexamination in the palpable region. There is a 1.5 cm lipoma subjacent tothe skin in the 2 o'clock position, 1.0 cm from the nipple, but this isslightly remote from the palpable site. No suspicious findings areidentified by ultrasound. CONCLUSION: No suspicious mammographic or sonographic findings in thearea of palpable concern indicated by the patient. This information wascorrelated with the most recent breast MRI. The patient was to havereturned for a six-month follow-up MRI in September or October, and therecommendation is to keep that appointment to confirm that the areasidentified on the prior MRI are stable. Results and recommendations werediscussed with the patient, who is in agreement with this plan. Thepatient received a result/recommendation letter. 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
--- OUTSIDE RECORDS SUMMARY | 2024-11-18 17:40 | XMS_ITS | Encounter Summary ---
Author Organization [facility] Address [address] [place] [address] Care Team Providers Care Logistics Team Leader Name Role Phone Ilda Hicks APN Primary Care Provider [phone] Encounter Details Date Type Department Care Team (Late st Contact Info) Description 02/20/2003 Outpatient Historical [facility] Judson Yang MD NO ADDRESS ON FILE OT ABNORMAL RADIOLOG EXAM BREAST (Primary Dx) Social History Tobacco Use Types Packs/Day Years Used Date Smoking Tobacco: Never Assessed Comments Unknown Sex and Gender Information Value Date Recorded Sex Assigned at Not on file 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 [facility] [address] [place] [address] PCP - General 03/29/08 documented as of this encounter
--- OUTSIDE RECORDS SUMMARY | 2024-11-18 17:40 | XMS_ITS | Encounter Summary ---
Author Organization [facility] Address [address] [place] [address] Care Team Providers Care Acoustic Intelligence Specialist Name Role Phone Hicks, Ilda Forbes APN Primary Care Provider [phone] Encounter Details Date Type Department Care Team (Late st Contact Info) Description 08/19/2008 Ancillary Orders [facility] [address] [facility] [address] [place] [id number] Jesenia Dubois MD NO ADDRESS ON FILE Screening Mammogram Social History Tobacco Use Types Packs/Day Years Used Date Smoking Tobacco: Never Alcohol Use Standard Drinks/Week Comments No 0 (1 standard drink = 0.6 oz pur e alcohol) Comments No Sex and Gender Information Value Date Recorded Sex Assigned at Not on file 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 This examination was reviewed with the aid of a computer-aided detection system(CAD). The breast tissue is average. Calcifications are noted. Patient is status-post right mastectomy. No significant interval change is noted when compared to prior exam(s) of 10.3.05, 3.10.08 Procedure Note Azeb Aranda MD - 08/20/2008 Left Mammogram Reason for Exam: Screening Findings: Left CC and MLO views were obtained. This examination was reviewed with the aid of a computer-aided detectionsystem(CAD). The breast tissue is average. Calcifications are noted. Patient isstatus-post right mastectomy. No significant interval change is noted when compared to prior exam(s) of10.3.05, 3.10.08 Jesenia Dubois MD MAMMO ORDERABLES Final Result documented in this encounter Visit Diagnoses Diagnosis Screening mammogram Other screening mammogram Screening mammogram Other screening mammogram documented in this encounter Care Teams Acoustic Intelligence Specialist Relationship Specialty Start Date End Date Ilda Hicks APN [facility] [address] [address] PCP - General 03/29/08 documented as of this encounter
--- OUTSIDE RECORDS SUMMARY | 2024-11-18 17:40 | XMS_ITS | Encounter Summary ---
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) Procedures MAMMO BREAST US LT Judson Yang MD NO ADDRESS ON FILE Referral ID Status Reason Start Date Expiration Date Visits Re quested Visits Authorized [id number] Closed 08/11/2009 02/07/2010 1 1 Encounter Details Date Type Department Care Team (Late st Contact Info) Description 08/11/2009 Ancillary Orders [facility] [place] [address] [facility] [address] [place] [address] Judson Yang MD NO ADDRESS ON FILE [...] on file 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 Procedure Note Leora Padilla MD - 08/15/2009 Ultrasound report is included in the diagnostic mammogram report of08/11/09. 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
--- OUTSIDE RECORDS SUMMARY | 2024-11-18 17:40 | XMS_ITS | Encounter Summary ---
Author Organization [facility] Address [address] [facility] Attn: Epic Prelude ADT [place] [address] Care Team Providers Care Creasing Machine Operator Name Role Phone Ilda Hicks APN Primary Care Provider Encounter Details Date Type Department Care Team (Late st Contact Info) Description 11/07/2000 Outpatient Historical Non-Staff, Physician NO ADDRESS ON FILE Social History Tobacco Use Types Packs/Day Years Used Date Smoking Tobacco: Never Assessed Comments Unknown Sex and Gender Information Value Date Recorded Sex Assigned at Not on file 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 [facility] [address] [place] [address] PCP - General 03/29/08 documented as of this encounter
--- OUTSIDE RECORDS SUMMARY | 2024-11-18 17:40 | XMS_ITS | Encounter Summary ---
Author Organization [facility] Address [address] [place] [address] Care Team Providers Care Health Sciences Program Coordinator Name Role Phone Hicks, Ilda Forbes APN Primary Care Provider [phone] Encounter Details Date Type Department Care Team (Latest Contact Info) Description 06/08/2007 Outpatient [facility] [address] 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 Gender Identity Not on file Sexual Orientation Not on file documented as of this encounter Plan of Treatment Not on file documented as of this encounter Procedures Procedure Name Priority Date/Time Associated Diagnosis Comments PATHOLOGY Routine 06/09/2007 10:28 AM CDT US GUIDE NEEDLE PLACEMENT Routine 06/09/2007 8:30 AM CDT US BIOPSY BREAST RIGHT Routine 06/09/2007 8:30 AM CDT US BREAST UNI RIGHT COMPLETE Routine 06/09/2007 8:01 AM CDT documented in this encounter Results * PATHOLOGY (06/09/2007 10:28 AM CDT) PATHOLOGY/CY TOLOGY REPORT [facility] Anatomic Pathology Dept [facility] [address] [facility] [address] Patient: BULL RODRIGUEZ Accn No: [id number] Collected: 06/09/2007 10:28:00 AM SURGICAL PATHOLOGY FINAL REPORT Diagnosis A. 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 Diagnostic Summary: Histologic Type: Invasive ductal carcinoma Histologic Grade (modified SBR): 3/3 Tubule formation score: 3 Nuclear pleomorphism score: 3 Mitotic count score: 2 Total score: 8 Type of in situ component: None Percentage of in situ component: 0% Vascular/lymphatic involvement: None Calcifications: None Prognostic markers: Pending with addendum to follow. Red Matthews M.D. (Electronically signed by) Verified: 06/10/07 SEC/WLS Clinical Information Ultrasound-guided 14 gauge core biopsies x 5, right breast 10 o'clock. 15 mm solid suspicious mass. The specimen is placed in formalin at 9:25 a.m. on 06/08/07. NOTE: The specimen will meet the formalin fixation guidelines. Specimen Source ABreast, RIGHT 10 O'CLOCK Microscopic Description Microscopic examination was performed. Gross Description Part A. Submitted in a container of formalin labelled Jennifer - right are six yellowish-lopez needle core biopsies ranging in size from 0.4 to 1.2 cm. The specimen is submitted entirely in A1. Gross Summary: Specimen Type: Ultrasound-guided core biopsy Laterality: Right Tumor Site: 10 o'clock Time in Formalin Between 6 and 48 Hours (Yes/No): Yes DLS/WLS SURGICAL PATHOLOGY ADDENDUM REPORT Discussion This breast cancer prognostic panel was performed at and [facility] using assisted quantitative image analysis by [employer]. Diagnosis IMAGE ANALYSIS: BLOCK A1 ESTROGEN RECEPTOR 0% Prognostic Category Unfavorable PROGESTERONE RECEPTOR 0% Prognostic Category Unfavorable Her-2/Nishi 0.0 Prognostic Category Normal Limit Ki-67 55% Prognostic Category Unfavorable Interpretive Guide: Immunocytochemical receptor studies are reported as a percent of tumor nuclei that express immunoreactivity. For breast cancer, estrogen receptor and progesterone receptor positivity of 5% or greater is considered a favorable prognostic indicator. A Her-2/Nishi of 2 or greater is unfavorable. For the cell proliferation marker Ki-67, greater than 20% positivity is unfavorable. Ira Munoz MD (Electronically signed by) Verified: 06/12/07 PKT/MAB Addendum Comment IMMUNOHISTOCHEMISTRY The performance characteristics of all immunohistochemical stains cited in this report were determined by the Diagnostic Immunohistochemistry Laboratory of [facility] in compliance with CLIA'88 regulations. Some of these tests rely on the use of analyte specific reagents and are subject to specific labeling requirements by the FDA. This testing was developed by the Diagnostic Immunohistochemistry Laboratory of [facility]. It has not been cleared or approved by the FDA. The FDA has determined that such clearance or approval is not necessary. BREAST CANCER PROGNOSTIC PANEL WITH ACIS METHODOLOGY: This prognostic panel was performed on formalin-fixed paraffin-embedded tissue sections, unless otherwise noted. Antibody types employed were: ER (Clone SP1), PgR (Clone 1E2), Ki-67 (Clone 30-9), and Her-2/nishi (Clone 4B5). Detection of these antibodies was accomplished using the [employer] Biotin/Streptavidin-HRP i-VIEW DAB Visualization System. INTERFACE SYSTEM 06/09/2007 10:2 8 AM CDT Judson Yang MD PATHOLOGY/CYTOLOGY ORDERAB LES Edited INTERFACE SYSTEM Refer to clinic/hospital department * US GUIDE NEEDLE PLACEMENT (06/09/2007 8:30 AM CDT) Anatomical Region Laterality Modality Other 06/09/2007 8:30 AM CDT Narrative 06/09/2007 8:30 AM CDT Report Available in [facility] Procedure Note 03/18/2008 Report Available in [facility] us Judson Yang MD US ORDERABLES Final Resu lt * US BIOPSY BREAST RIGHT (06/09/2007 8:30 AM CDT) Anatomical Region Laterality Modality Breast Right Other 06/09/2007 8:30 AM CDT Narrative 06/09/2007 8:30 AM CDT Report Available in [facility] Procedure Note 03/18/2008 Report Available in [facility] us Judson Yang MD US ORDERABLES Final Resu lt * US BREAST UNILATERAL RIGHT (06/09/2007 8:01 AM CDT) Anatomical Region Laterality Modality Breast Right Other 06/09/2007 8:01 AM CDT Narrative 06/09/2007 8:01 AM CDT Report Available in [facility] Procedure Note 03/18/2008 Report Available in [facility] Judson Yang MD ORDERABLES Final Resu lt documented in this encounter Visit Diagnoses Diagnosis Postmenopausal bleeding Family history of malignant neoplasm of breast documented in this encounter Care Teams Health Sciences Program Coordinator Relationship Specialty Start Date End Date Kurt, Ilda Forbes APN [facility] [address] [address] PCP - General 03/29/08 documented as of this encounter
--- OUTSIDE RECORDS SUMMARY | 2024-11-18 17:40 | XMS_ITS | Clinical Summary ---
Author Organization [facility] Address [address] [place] [address] Care Team Providers Care Compliance Quality Performance Analyst Name Role Phone Hicks Ilda Forbes APN Primary Care Provider [phone] Allergies Active Allergy Reactions Criticality Noted Date Comments Adhesive Tape Rash Low 04/04/2008 Hydroxychloroquine Rash Low 09/06/2017 Medications metoprolol tartrate (LOPRESSOR) 25 mg Oral tablet Take 25 mg by mouth daily . Active folic acid (FOLVITE) 1 mg Oral tablet Take 1 mg by mouth daily. Active betamethasone, augmented (DIPROLENE) 0.05 % Topical Lotn Apply 1 Each to affected area 2 times daily. Apply to scalp twice daily. Active clobetasol (TEMOVATE) 0.05 % Topical Crea Apply 1 Gram to affected area 2 times daily. Active DULoxetine (CYMBALTA) 60 mg Oral CpDR Take 60 mg by mouth daily. Active cetirizine (ZYRTEC) 10 mg Oral tablet Take 10 mg by mouth 1 time daily as needed . Active ergocalciferol (VITAMIN D) 50,000 unit Oral capsule Take 50,000 Units by mouth every 7 days. Active METHOTREXATE SODIUM ORAL Take 10 mg by mouth every 7 days . Active lisinopril (PRINIVIL) 20 mg tablet Take 20 mg by mouth daily. Active HYDROcodone-adam taminophen (NORCO) 7.5-325 mg Tablet Take 1 Tablet by mouth every 4 hours as needed for Pain. Max Daily Amount: 6 Tablets 35 Tablet 09/13/2017 Active Active Problems Problem Noted Date Diagnosed [...] Diagnosed Date Resolved Date Dermatomyositis 03/06/2009 03/06/2009 Immunizations Immunization Administration Dates Next Due (TDVAX)(7 YRS UP) TETANUS AN D DIPHTHERIA TOXOIDS, ADSORBED (2 LF OF TETANUS TOXOID AND 2 LF OF DIPHTHERIA TOXOID), 0.5ML (PF), IM 08/11/2004 Family History Medical History Relation Name Comments Heart Disease Father Hypertension Father Stroke Father Breast Cancer Maternal Grandmother risk a ssessment to genetic counselor-see media tab Breast Cancer Mother dx age 70- and self Colon Cancer Neg Hx Ovarian Cancer Neg Hx Relation Name Status Comments Daughter 1 Alive Daughter 2 Alive Daughter 3 Alive Father Maternal Grandmother Mother Alive Sister Alive Social History Tobacco Use Types Packs/Day Years Used Date Smoking Tobacco: Never Smokeless Tobacco: Never Alcohol Use Standard Drinks/Week Comments No 0 (1 standard drink = 0.6 oz pur e alcohol) rare Comments No Sex and Gender Information Value Date Recorded Sex Assigned at Not on file Legal Sex Female 2:47 AM COOK FAST FOOD Gender Identity Not on file Sexual Orientation Not on file Occupation Industry Job Start Date Job End Date Not on file Not on file Not on file Not on file Last Filed Vital Signs Vital Sign Reading Time Taken Comments Blood Pressure 148/86 04/18/2018 3:57 PM COOK FAST FOOD Pulse 84 04/18/2018 3:57 PM COOK FAST [employer]OD Temperature 36 C (96.8 F) 09/13/2017 5:00 PM CDT Respiratory Rate 12 09/13/2017 4:40 PM CDT Oxygen Saturation 95% 09/13/2017 5:30 PM CDT Inhaled Oxygen Concentration - - Weight 78.5 kg (173 lb) 04/18/2018 3:57 PM COOK FAST [employer]OD Height 154.9 cm (5' 1 ) 04/18/2018 3:57 PM COOK FAST FOOD Body Mass Index 32.69 04/18/2018 3:57 PM COOK FAST FOOD Plan of Treatment Health Maintenance Due Date Last Done Comments FIT-DNA Q 3 years 05/14/1995 FIT/FOBT Q 1 year 05/14/1995 Flex Sig/CT Colonography Q 5 years 05/14/1995 PNEUMOCOCCAL VACCINE 50+ YEA RS (1 of 1 - PCV) 2000 ZOSTER VACCINE (1 of 2) 2000 DTAP/TDAP/TD VACCINES (1 - Tdap) 08/12/2004 08/12/19 05 BREAST CANCER SCREENING 12/24/2015 12/24/19 15, 05/16/2013, 11/29/2011, Additional history exists COLORECTAL SCREENING 04/18/2016 04/19/2011, 04/19/2011, 04/08/2008, Additional history exists Colorectal Cancer Screening 04/18/2016 OSTEOPOROSIS SCREENING 06/27/2023 06/26/2018 INFLUENZA VACCINE (#1) 2024 RSV VACCINE (60+ or ) (1 - 1-dose 75+ series) 2025 Medical Devices Implanted Type Area Route Delivery Manager Device Identifier Shelf Expiration Date Model / Serial / Lot Log [id number] - Mesh Ethicon Hernia - 1 - Mesh Proceed [id number] Implanted:Qty: 1 on 05/15/2009 at [facility] Mesh N/A: Abdomen J[employer]J- [employer] 09/14/2010 PCDG1 / / [id number] Plate Dvr Nrw Loc Rt 1318-11-050 - [id number] Implanted:Qty: 1 on 09/13/2017 by Chet Russell MD at [facility] Plate Right: Wrist VIC BIOMET [id number] / / Screw Dvr Loc 2.7x22mm 1312-27-122 - [id number] Implanted:Qty: 1 on 09/13/2017 by Chet Russell MD at [facility] Screw Right: Wrist VIC BIOMET 1312-27-122 / / [id number] Screw Dvr Loc 2.7x22mm 131--122 - [id number] Implanted:Qty: 1 on 09/13/2017 by Chet Russell MD at [facility] Screw Right: Wrist VIC BIOMET 1312-27-122 / / [id number] Screw Dvr Loc 2.7x20mm 1312-27-120 - [id number] Implanted:Qty: 1 on 09/13/2017 by Chet Russell MD at [facility] Screw Right: Wrist VIC BIOMET 1312-27-120 / / [id number] Screw Dvr Loc 2.7x20mm 1312-27-120 - [id number] Implanted:Qty: 1 on 09/13/2017 by Chet Russell MD at [facility] Screw Right: Wrist VIC [employer]ET 1312-27-120 / / [id number] Screw Dvr Loc 2.7x14mm 131--114 - [id number] Implanted:Qty: 1 on 09/13/2017 by Chet Russell MD at [facility] Screw Right: Wrist VIC BIOMET 1312-27-114 / / [id number] Allgrft Vivigen Matrix 5ml Bl-1600-002 - [id number] Implanted:Qty: 1 on 09/13/2017 by Chet Russell MD at [facility] Tissue Right: Wrist LIFENET 01/12/2018 BL-1600-002 / / [id number] Screw 2.7x12 [id number] Implanted:Qty: 1 on 09/13/2017 by Chet Russell MD at [facility] Right: Wrist 09/13/2018 BIOMET - [id number] / / [id number] Screw 2.7x12 [id number] Implanted:Qty: 1 on 09/13/2017 by Chet Russell MD at [facility] Right: Wrist 09/13/2018 BIOMET - [id number] / / [id number] 2.7x16 Screw [id number] Implanted:Qty: 1 on 09/13/2017 by Chet Russell MD at [facility] Right: Wrist 09/13/2018 BIOMET - SCREW / / [id number] Explanted Type Area Route Delivery Manager Device Identifier Shelf Expiration Date Model / Serial / Lot Wire K Ss 1.6mm [id number] - [id number] Explanted:Qty: 1 on 09/13/2017 at [facility] Wire Right: Hand VIC BIOMET [id number] / / [id number] Wire K Ss 1.6mm Mc621ov - [id number] Explanted:Qty: 1 on 09/13/2017 at [facility] Wire Right: Hand VIC BIOMET [id number] / / [id number] Wire K Ss 1.6mm [id number] - [id number] Explanted:Qty: 1 on 09/13/2017 at [facility] Wire Right: Hand VIC BIOMET [id number] / / [id number] Locking Smooth Peg 202, 18 [id number] Implanted:2017 by Chet Russell MD (Quantity not on file) Explanted:Qty: 1 on 09/13/2017 at [facility] Right: Wrist 08/14/2018 BIOMET - [id number] / / [id number] Locking Smooth Peg 202, 18 [id number] Implanted:2017 by Chet Russell MD (Quantity not on file) Explanted:Qty: 1 on 09/13/2017 at [facility] Right: Wrist 08/14/2018 BIOMET - [id number] / / [id number] Procedures Procedure Name Priority Date/Time Associated Diagnosis Comments MAMMO SCRN UNI LEFT W OR WO CAD Routine 12/23/2014 11:30 AM COOK FAST FOOD Visit for screening mammogram from Last 3 Months or Most Recently Relevant to Health Maintenance Results * MAMMO DIGITAL SCREEN UNI LEFT (12/23/2014 11:30 AM COOK FAST FOOD) Anatomical Region Laterality Modality Breast Left Mammography Narrative 12/24/2014 1:37 PM COOK FAST FOOD Left Mammogram Reason for Exam: Screening Comparison: [...] Most Recently Relevant to Health Maintenance Insurance [address] [place] [address] RX [facility] Medicare Part D RX INFOCROSSING Medicaid MEDICARE PART A AND B [place] Advance Directives For more information, please contact: [phone] * Full Code (Latest Code Status on File) Date Activated Date Inactivated Comments 09/13/2017 11:56 AM 09/13/2017 7:42 PM * Full Code Date Activated Date Inactivated Comments 09/13/2017 10:45 AM 09/13/2017 11:56 AM * Full Code Date Activated Date Inactivated Comments 04/19/2011 12:19 PM 04/19/2011 4:15 PM * Full Code Date Activated Date Inactivated Comments 05/15/2009 10:44 AM 05/16/2009 2:01 AM * Full Code Date Activated Date Inactivated Comments 05/15/2009 10:13 AM 05/15/2009 10:44 AM Care Teams Compliance Quality Performance Analyst Relationship Specialty Start Date End Date Ilda Hicks APN [address] [address] PCP - General 03/29/08
--- OUTSIDE RECORDS SUMMARY | 2024-11-18 17:40 | XMS_ITS | Encounter Summary ---
Author Organization [facility] Address [address] [place] [address] Care Team Providers Care Parts Remover Name Role Phone Hicks, Ilda Forbes APN Primary Care Provider [phone] Encounter Details Date Type Department Care Team (Late st Contact Info) Description 04/11/2009 Ancillary Orders [facility] [address] [facility] [address] [place] [address] Judson Yang MD NO ADDRESS ON FILE Lump or Mass in Breast Social History Tobacco Use Types Packs/Day Years Used Date Smoking Tobacco: Never Alcohol Use Standard Drinks/Week Comments No 0 (1 standard drink = 0.6 oz pur e alcohol) Comments No Sex and Gender Information Value Date Recorded Sex Assigned at Not on file Legal Sex Female 2:47 AM 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 Procedure Note Azeb Aranda MD - 04/16/2009 For full report, please see diagnostic mammogram of 04/11/2009. us Judson Yang MD MAMMO ORDERABLES Final Res ult documented in this encounter Visit Diagnoses Diagnosis Lump or mass in breast Lump or mass in breast documented in this encounter Care Teams Parts Remover Relationship Specialty Start Date End Date Ilda Hicks APN [address] [place] [address] PCP - General 03/29/08 documented as of this encounter
--- OUTSIDE RECORDS SUMMARY | 2024-11-18 17:40 | XMS_ITS | Encounter Summary ---
Author Organization [facility] Address [address] [place] [address] Care Team Providers Care Glass Artist Name Role Phone Hicks, Ilda Forbes APN Primary Care Provider [phone] Reason for Referral * Outpatient Services (Routine) - Closed Specialty Diagnoses / Procedures Referred By Kaya beltran Referred To Contact Diagnoses Other screening mammogram Procedures MAMMO DIGITAL SCREEN UNI LEFT Jesenia Dubois MD NO ADDRESS ON FILE Referral ID Status Reason Start Date Expiration Date Visits Re quested Visits Authorized [id number] Closed 09/29/2010 09/29/2011 1 1 Encounter Details Date Type Department Care Team (Latest Contact Info) Description 09/29/2010 Ancillary Orders [facility] Pre-Registration [facility] CALL TO MAKE APPOINTMENT ONLY [address] [place] [address] Jesenia Dubois MD NO ADDRESS ON FILE Other screening mammogram Social History Tobacco Use Types Packs/Day Years Used Date Smoking Tobacco: Never Alcohol Use Standard Drinks/Week Comments No 0 (1 standard drink = 0.6 oz pur e alcohol) Comments No Sex and Gender Information Value Date Recorded Sex Assigned at Not on file Legal Sex Female 2:47 AM TRANSPORTATION PROJECT MANAGER Gender Identity Not on file Sexual Orientation Not on file documented as of this encounter Plan of Treatment Not on file documented as of this encounter Results * MAMMO DIGITAL SCREEN UNI LEFT (09/29/2010 1:15 PM CDT) Anatomical Region Laterality Modality Breast Left Mammography Narrative 09/30/2010 4:45 PM CDT Left Mammogram Reason for Exam: Screening Comparison: Comparison is made with the prior exam(s) dated 08.19.08, 08.11.10 Findings: Left CC and MLO views were obtained. This examination was reviewed with the aid of a computer-aided detection system(CAD). The breast tissue density is average. Asymmetric breast tissue is noted. Calcifications are noted. Patient is status-post right mastectomy. No significant new findings since the prior mammogram(s) Procedure Note Azeb Aranda MD - 09/30/2010 Left Mammogram Reason for Exam: Screening Comparison: Comparison is made with the prior exam(s) dated 08.19.08,10 Findings: Left CC and MLO views were obtained. This examination was reviewed with the aid of a computer-aided detectionsystem(CAD). The breast tissue density is average. Asymmetric breast tissue is noted.Calcifications are noted. Patient is status-post right mastectomy. No significant new findings since the prior mammogram(s) Jesenia Dubois MD MAMMO ORDERABLES Final Result documented in this encounter Visit Diagnoses Diagnosis Other screening mammogram Other screening mammogram documented in this encounter Care Teams Glass Artist Relationship Specialty Start Date End Date Ilda Hicks APN [facility] [address] [address] PCP - General 03/29/08 documented as of this encounter
--- OUTSIDE RECORDS SUMMARY | 2024-11-18 17:40 | XMS_ITS | Encounter Summary ---
Author Organization [facility] Address [address] [place] [address] Care Team Providers Care Milk Inspector Name Role Phone Hicks, Ilda Forbes APN Primary Care Provider [phone] Encounter Details Date Type Department Care Team (Late st Contact Info) Description 08/15/2007 Outpatient [facility] [address] [place] [address] Katie Spence, CATERING CHEF [address] [place] [address] Social History Tobacco Use Types Packs/Day Years Used Date Smoking Tobacco: Never Assessed Comments Unknown Sex and Gender Information Value Date Recorded Sex Assigned at Not on file Legal Sex Female 2:47 AM GAS SUBSTATION OPERATOR Gender Identity Not on file Sexual Orientation Not on file documented as of this encounter Plan of Treatment Not on file documented as of this encounter Procedures Procedure Name Priority Date/Time Associated Diagnosis Comments PATHOLOGY Routine 08/15/2007 8:42 AM CDT documented in this encounter Results * PATHOLOGY (08/15/2007 8:42 AM CDT) PATHOLOGY/CY TOLOGY REPORT [facility] Path[facility] Dept [address] [facility] [address] Patient: KASSI RODRIGUEZ Accn No: [id number] Collected: 08/15/2007 8:42:00 AM DERMATOPATHOLOGY FINAL REPORT 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 The findings are not those of contact dermatitis. The lack of follicular involvement and presence of eosinophils makes lupus erythematosus unlikely. Clinical Information Photosensitivity reaction vs. contact dermatitis vs. other. Specimen Source LEFT FOREARM Gross Description Received in formalin is a lopez fragment of skin measuring 1.0 x 0.8 x 0.1 cm. The specimen is sectioned into five pieces and submitted in cassette A1. *Gross examination performed at [facility], [address] [place] [address] DI RP /WLS Microscopic Description Sections show a band-like infiltrate of lymphocytes and eosinophils, which focally obscures the dermal-epidermal junction. The adjacent epidermis shows vacuolar changes and contains necrotic keratinocytes. INTERFACE SYSTEM 08/15/2007 8:42 AM CDT Katie Spence [facility] PATHOLOGY/CYTOLOGY ORDERABLES Final Result INTERFACE SYSTEM Refer to clinic/hospital department documented in this encounter Visit Diagnoses Not on filedocumented in this encounter Care Teams Milk Inspector Relationship Specialty Start Date End Date Ilda Hicks APN [facility] [address] [address] PCP - General 03/29/08 documented as of this encounter
--- OUTSIDE RECORDS SUMMARY | 2024-11-18 17:40 | XMS_ITS | Encounter Summary ---
Author Organization [facility] Address [address] [place] [address] Care Team Providers Care Crime Lab Analyst Name Role Phone Ilda Hicks APN Primary Care Provider [phone] Encounter Details Date Type Department Care Team (Latest Contact Info) Description 01/19/2000 Outpatient Historical [facility] GeorgiaJesu hinds MD NO ADDRESS ON FILE Other plastic surgery for unacceptable cosmetic appearance (Primary Dx) Social History Tobacco Use Types Packs/Day Years Used Date Smoking Tobacco: Never Assessed Comments Unknown Sex and Gender Information Value Date Recorded Sex Assigned at Not on file Legal Sex Female 2:47 AM PAPERHANGER APPRENTICE Gender Identity Not on file Sexual Orientation Not on file documented as of this encounter Plan of Treatment Not on file documented as of this encounter Visit Diagnoses Diagnosis Other plastic surgery for unacceptable cosmetic appearance- Primary documented in this encounter Care Teams Crime Lab Analyst Relationship Specialty Start Date End Date Ilda Hicks APN [address] [place] [address] PCP - General 03/29/08 documented as of this encounter
--- OUTSIDE RECORDS SUMMARY | 2024-11-18 17:40 | XMS_ITS | Encounter Summary ---
Author Organization [facility] Address [address] [place] [address] Care Team Providers Care Senior Group Manager Name Role Phone Hicks, Ilda Forbes APN Primary Care Provider [phone] Reason for Referral * Outpatient Services (Routine) - Closed Specialty Diagnoses / Procedures Referred By Kaya beltran Referred To Contact Radiology Diagnoses Dermatomyositis (CMS/HCC) Muscle weakness of left upper extremity Procedures MRI HUMERUS W WO CONTRAST LEFT [facility] [address] [place] [address] Phone: tel: fax: [facility] [address] [place] [address] Phone: tel: fax: Referral ID Status Reason Start Date Expiration Date Visits Re quested Visits Authorized [id number] Closed 09/22/2009 12/21/2009 1 1 Encounter Details Date Type Department Care Team (Latest Contact Info) Description 09/16/2009 Ancillary Orders [facility] [address] [place] [address] Tariq, External Provider [address] [place] [address] Dermatomyositis (CMS/HCC); Muscle Weakness of Left Upper Extremity Social History Tobacco Use Types Packs/Day Years Used Date Smoking Tobacco: Never Alcohol Use Standard Drinks/Week Comments No 0 (1 standard drink = 0.6 oz pur e alcohol) Comments No Sex and Gender Information Value Date Recorded Sex Assigned at Not on file Legal Sex Female 2:47 AM STAFFING ASSISTANT Gender Identity Not on file Sexual Orientation Not on file documented as of this encounter Plan of Treatment Not on file documented as of this encounter Results * MRI HUMERUS W WO CONTRAST LEFT (09/29/2009 11:49 AM CDT) Anatomical Region Laterality Modality Upper Extremity Magnetic Resonan ce 09/29/2009 10:2 2 AM CDT Impressions 09/29/2009 12:15 PM CDT Impression: 1. Subtle areas of muscle edema and enhancement are noted in the distal triceps muscles that may reflect mild patchy myositis or subacute muscle strain. 2. Otherwise unremarkable exam. No mass, no focal diffuse myositis, no diffuse muscle atrophy or bony abnormality is identified. Subcutaneous fat and soft tissues are otherwise appropriate in signal. tjb - uploaded from [employer] 09/29/2009 12:15 PM CDT Exam: MRI HUMERUS W WO CONTRAST LEFT Date/Time of Exam: Sep 29, 2009 11:49:00 AM History: Dermatomyositis. Technique: MRI of the left humerus was performed prior to and following the administration of intravenous contrast. Contrast: 20 mL Optimark contrast. No abnormal bone signal is identified in the humerus. There is some mildly exaggerated hematopoietic marrow signal proximally but no bony destructive lesion. There is no elbow joint effusion. No adenopathy. No fluid collection is identified in the subcutaneous fat or soft tissues. No focal muscle atrophy is identified. Images after contrast and T2-weighted images demonstrate some subtle edema within the muscles of the arm. Specifically in the posterior triceps muscle on series 7 and series 13 image 19 through 24 and also on image 31 of these series there is some patchy edema and enhancement. This appearance could reflect a recent muscle strain. Minimal myositis would be a consideration but there is no extensive muscle edema or enhancement or definitive myositis. No soft tissue masses, enhancement or suggestion of calcification in the soft tissues is identified. Procedure Note Cora Jerez MD - 09/29/2009 Exam: MRI HUMERUS W WO CONTRAST LEFT Date/Time of Exam: Sep 29, 2009 11:49:00 AM History: Dermatomyositis. Technique: MRI of the left humerus was performed prior to and following the administration of intravenous contrast. Contrast: 20 mL Optimark contrast. No abnormal bone signal is identified in the humerus. There is some mildly exaggerated hematopoietic marrow signal proximally but no bony destructive lesion. There is no elbow joint effusion. No adenopathy. No fluid collection is identified in the subcutaneous fat or soft tissues. No focal muscle atrophy is identified. Images after contrast and T2-weighted images demonstrate some subtle edema within the muscles of the arm. Specifically in the posterior triceps muscle on series 7 and series 13 image 19 through 24 and also on image 31 of these series there is some patchy edema and enhancement. This appearance could reflect a recent muscle strain. Minimal myositis would be a consideration but there is no extensive muscle edema or enhancement or definitive myositis. No soft tissue masses, enhancement or suggestion of calcification in the soft tissues is identified. IMPRESSION Impression: 1. Subtle areas of muscle edema and enhancement are noted in the distal triceps muscles that may reflect mild patchy myositis or subacute muscle strain. 2. Otherwise unremarkable exam. No mass, no focal diffuse myositis, no diffuse muscle atrophy or bony abnormality is identified. Subcutaneous fat and soft tissues are otherwise appropriate in signal. susana - uploaded from [employer] us External Provider [facility] MR ORDERABLES Final Resu lt documented in this encounter Visit Diagnoses Diagnosis Dermatomyositis (CMS/HCC) Dermatomyositis Muscle weakness of left upper extremity Muscle weakness (generalized) Dermatomyositis (CMS/HCC) Dermatomyositis Muscle weakness of left upper extremity Muscle weakness (generalized) documented in this encounter Care Teams Senior Group Manager Relationship Specialty Start Date End Date Ilda Hicks APN [facility] [address] [address] PCP - General 03/29/08 documented as of this encounter
--- OUTSIDE RECORDS SUMMARY | 2024-11-18 17:40 | XMS_ITS | Encounter Summary ---
Author Organization [facility] Address [address] [place] [address] Care Team Providers Care Lead Driver Name Role Phone Ilda Hicks APN Primary Care Provider [phone] Encounter Details Date Type Department Care Team (Latest Contact Info) Description 11/16/2004 Outpatient [facility] [address] [place] [address] [facility], [address] SCREENING MAMM-MAILG NEOPL NEC (Primary Dx) Social History Tobacco Use Types Packs/Day Years Used Date Smoking Tobacco: Never Assessed Comments Unknown Sex and Gender Information Value Date Recorded Sex Assigned at Not on file Legal Sex Female 2:47 AM 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 [address] PCP - General 03/29/08 documented as of this encounter
--- OUTSIDE RECORDS SUMMARY | 2024-11-18 17:40 | XMS_ITS | Encounter Summary ---
Author Organization [facility] Address [address] [place] [address] Care Team Providers Care House Nurse Name Role Phone Ilda Hicks APN Primary Care Provider [phone] Encounter Details Date Type Department Care Team (Late st Contact Info) Description 10/20/1999 Outpatient Historical [facility] [place] [address] [place] [id number] Azeb Aranda MD NO ADDRESS ON FILE Family history of malignant neoplasm of breast (Primary Dx); Screening mammogram for high-risk patient Social History Tobacco Use Types Packs/Day Years Used Date Smoking Tobacco: Never Assessed Comments Unknown Sex and Gender Information Value Date Recorded Sex Assigned at Not on file 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 [address] PCP - General 03/29/08 documented as of this encounter
--- OUTSIDE RECORDS SUMMARY | 2024-11-18 17:41 | XMS_ITS | Encounter Summary ---
Author Organization [facility] Address [address] [place] [address] Care Team Providers Care Apparel Rental Clerk Name Role Phone Hicks, Ilda Forbes APN Primary Care Provider [phone] Reason for Referral * Outpatient Services (Routine) - Closed Specialty Diagnoses / Procedures Referred By Kaya beltran Referred To Contact Diagnoses Other screening mammogram Procedures MAMMO DIGITAL SCREEN UNI LEFT Jesenia Dubois MD Referral ID Status Reason Start Date Expiration Date Visits Re quested Visits Authorized [id number] Closed 10/16/2014 11/16/2015 1 1 Encounter Details Date Type Department Care Team (Latest Contact Info) Description 10/16/2014 Ancillary Orders [facility] Pre-Registration [place] CALL TO MAKE APPOINTMENT ONLY [address] [place] [address] Jesenia Dubois MD NO ADDRESS [...] file Legal Sex Female 2:47 AM MANAGER COMMUNITY OUTREACH Gender Identity Not on file Sexual Orientation Not on file Occupation Industry Job Start Date Job End Date Not on file Not on file Not on file Not on file documented as of this encounter Plan of Treatment Not on file documented as of this encounter Results * MAMMO DIGITAL SCREEN UNI LEFT (12/23/2014 11:30 AM MANAGER COMMUNITY OUTREACH) Anatomical Region Laterality Modality Breast Left Mammography Narrative 12/24/2014 1:37 PM MANAGER COMMUNITY OUTREACH Left Mammogram Reason for Exam: Screening Comparison: [...] Visit Diagnoses Diagnosis Other screening mammogram- Primary Visit for screening mammogram Other screening mammogram documented in this encounter Care Teams Apparel Rental Clerk Relationship Specialty Start Date End Date Ilda Hicks APN [address] [address] PCP - General 03/29/08 documented as of this encounter
--- OUTSIDE RECORDS SUMMARY | 2024-11-18 17:41 | XMS_ITS | Encounter Summary ---
Author Organization [email or web address] Address [address] [place] [address] Care Team Providers Care Business Office Technology Instructor Name Role Phone Ilda Hicks CARMINE Primary Care Provider [phone] Encounter Details Date Type Department Care Team (Late st Contact Info) Description 01/05/2008 Outpatient Historical [facility] [address] [place] [address] Judson Yang MD NO ADDRESS ON FILE Social History Tobacco Use Types Packs/Day Years Used Date Smoking Tobacco: Never Assessed Comments Unknown Sex and Gender Information Value Date Recorded Sex Assigned at Not on file Legal Sex Female 2:47 AM INSPECTOR WEIGHTS AND MEASURES Gender Identity Not on file Sexual Orientation Not on file documented as of this encounter Plan of Treatment Not on file documented as of this encounter Procedures Procedure Name Priority Date/Time Associated Diagnosis Comments PATHOLOGY Routine 01/05/2008 5:48 AM INSPECTOR WEIGHTS AND MEASURES documented in this encounter Results * PATHOLOGY (01/05/2008 5:48 AM INSPECTOR WEIGHTS AND MEASURES) PATHOLOGY/CYT OLOGY REPORT [facility] Anatomic Pathology Dept [address] [facility] [address] Patient: KASSI SUÁREZ Accn No: [id number] Collected: 01/05/2008 5:48:00 AM SURGICAL PATHOLOGY FINAL REPORT Diagnosis A. Port, left chest, excision - gross only. Red Matthews M.D. (Electronicall y signed by) Verified: 01/08/08 SEC/DJT Clinical Information None. Specimen Source AHardware Gross Description Part A. Submitted in a container of formalin labelled [place] is a lavender triangle-shaped Port-A-Cath specimen with attached plastic tubing measuring 2.8 cm in diameter and 1.4 cm in thickness. The inscription BARD is found on the back along with the serial number [id number]. The attached plastic tubing measures 20 cm in length. The specimen is submitted for gross only. DLS/WLS INTERFACE SYSTEM 01/05/2008 5:48 AM INSPECTOR WEIGHTS AND MEASURES us Judson Yang MD PATHOLOGY/CYTOLOGY ORDERAB LES Final Result INTERFACE SYSTEM Refer to clinic/hospital department documented in this encounter Visit Diagnoses Not on filedocumented in this encounter Care Teams Business Office Technology Instructor Relationship Specialty Start Date End Date Ilda Hicks APN [facility] [address] [address] PCP - General 03/29/08 documented as of this encounter
--- OUTSIDE RECORDS SUMMARY | 2024-11-18 17:41 | XMS_ITS | Encounter Summary ---
Author Organization [facility] Address [address] [place] [address] Care Team Providers Care Piping Design Specialist Name Role Phone Ilda Hicks APN Primary Care Provider [phone] Encounter Details Date Type Department Care Team (Latest Contact Info) Description 12/26/2007 Outpatient Historical [facility] [address] [facility] [address] [place] [address] Jesu Ho MD NO ADDRESS ON FILE Personal History of Malignant Neoplasm of Breast Social History Tobacco Use Types Packs/Day Years Used Date Smoking Tobacco: Never Assessed Comments Unknown Sex and Gender Information Value Date Recorded Sex Assigned at Not on file Legal Sex Female 2:47 AM DIGITAL SOLUTION ARCHITECT Gender Identity Not on file Sexual Orientation Not on file documented as of this encounter Plan of Treatment Not on file documented as of this encounter Visit Diagnoses Diagnosis Personal history of malignant neoplasm of breast documented in this encounter Care Teams Piping Design Specialist Relationship Specialty Start Date End Date Ilda Hicks APN [address] [facility] [address] [place] [address] PCP - General 03/29/08 documented as of this encounter
--- OUTSIDE RECORDS SUMMARY | 2024-11-18 17:41 | XMS_ITS | Patient Health Record ---
Author Organization [facility] Address [address] [place] [address] Care Team Providers Care Station Superintendent Name Role Phone Hicks, [facility] Primary Care Provider Allergies No Known Allergies Results Component Value Reference Range Flag Notes CBC w\ Auto Diff [id number] Reviewed date:05/08/2024 10:24:54 AM Interpretation: Performing Lab: Notes/Report: Diagnosis Description: Essential (primary) hypertension WBC 6.6 4.5-11.0 X10'3 RBC 4.16 4.00-5.20 X10'6 Hgb 13.0 12.0-16.0 G/DL Hct 41.3 36.0-46.0 % MCV 99.3 80.0-100.0 FL MCH 31.3 27.0-31.0 PG HI MCHC 31.5 31.0-37.0 G/DL Platelet 259 150-400 X10'3 RDW-SD 52.2 35.0-49.0 FL HI RDW-CV 15.0 12.2-15.6 % MPV 10.7 9.2-12.0 FL Neutro Auto% 64.0 40.0-70.0 % Lymph Auto% 18.4 22.0-44.0 % LOW Gibson Auto% 10.6 3.0-7.0 % HI Eos Auto% 5.6 2.0-4.0 % HI Baso Auto% 0.9 0.0-1.0 % Imm Gran% .5 .0-.4 % HI Neutro Abs 4.24 .80-7.70 Absolute Neutrophil Count 4240 NA Lymph Abs 1.22 .10-4.10 Gibson Abs .70 .20-1.00 Eos Abs .37 .00-.40 Baso Abs .06 .00-.20 Imm Gran Abs .03 .00-.10 NRBC# .00 .00-.20 X10'3 NRBC% .00 .00-.20 /100 int act WBC's Comprehensive Metabolic Pane l (CMP) 42804 Reviewed date:05/08/2024 10:25:30 AM Interpretation: Performing Lab: Notes/Report: Diagnosis Description: Essential (primary) hypertension Glucose Serum 85 71-110 MG/DL Testing p erformed at [facility], [address] [place] [address] Dr. Ady Day, DAVID [address]. CLIA ID#: [id number] BUN 18 7-21 MG/DL Creat .86 .51-1.17 MG/DL Use of this assay is not recommended for patients undergoing treatment with phenindione, due to the potential for falsely depressed results. H-pnqirt-e-benzoquinone imine (NAPQI) is a metabolite of acetaminophen, NAPQI concentrations of apparoximately 10 mg/L correlation to toxic levels of acetaminophen demonstrates a greater than or equil to 10% change in results. NAPQI concentrations greater than this may lead to falsely depressed results for patient samples. GFR 71.2 NA Calculation pe rformed from GFR calculator provided by the [employer]. Glomerular Filtration rate(GRF) is the best overall index of kidney function. Normal GFR varies according to age,sex, body size, and declines with age. The National Kidney Foundation recommends using the CKD-EPI Creatinine Equation(2020) to estimate GFR. BUN/Creat Ratio 20.9 12.0-20.0 % HI Total Protein 6.9 5.8-8.0 G/DL Albumin 4.0 3.2-4.8 G/DL Globulin 2.9 2.3-3.5 G/DL Alb/Glob 1.4 0.8-2.2 Calcium 9.8 8.7-10.4 MG/DL Sodium 138 136-145 MMOL/L Potassium 4.8 3.5-5.1 MMOL/L Chloride 100 98-107 MMOL/L CO2 31.2 20.0-31.0 MMOL/L HI Anion Gap 12 5-15 Alk Phos 108 46-116 Bili Total .5 .3-1.2 MG/DL Use of this assay is not recommended for patients undergoing treatment with eltrombopag due to the potential for falsely elevated results. AST/SGOT 21 15-37 UNIT/L ALT/SGPT 16 12-78 UNIT/L Osmo Serum,Calculated 287 280-300 MOSM/KG Hemoglobin A1c 60672 Reviewed date:05/08/2024 10:25:10 AM Interpretation: Performing Lab: Notes/Report: Diagnosis Description: Other olive grader (current) drug therapy Hgb A1c 5.4 3.8-6.4 % Interpretation Of Hgb A1c: 4.5-6.2 % nondiabetics. >7.0 % diabetics. EAG 108 NA Estimated Aver age Glucose(EAG). Lipid Panel Reflex DLDL 8006 1, 84881 Reviewed date:05/08/2024 10:23:28 AM Interpretation: Performing Lab: Notes/Report: Diagnosis Description: Mixed hyperlipidemia Trig 139 NA 5-9 yr 32-105 0-4 yr 34-112 0-4 yr 22-99 Children: Male Adults: >20yrs 15-19 yr 37-148 Very high >=500 High 200-499 Desirable <150 Borderline High 150-199 Children: Female 15-19 yr 39-132 Classification Guidelines:Triglycerides 5-9 yr 30-101 10-14 yr 37-131 10-14 yr 32-125 Chol 212 <=200 MG/DL HI HDL 53 39-96 MG/DL 15-19y 35-74 5-9y 38-75 5-9y 36-73 Female: >=20y 40-59 >=20y 40-59 15-19y 30-63 Reference Ranges:HDL Male: 10-14y 37-70 10-14y 37-74 CH/HDL 4.0 0.0-4.9 RATIO LDL 131 0-130 MG/DL HI LDL result is inaccurate , if Trig is >400 mg/dl. See DLDL result. Thyroid Stimulating Hormone (TSH) 17082 Reviewed date:05/08/2024 10:22:14 AM Interpretation: Performing Lab: Notes/Report: Diagnosis Description: Encounter for screening for other suspected endocrine disorder TSH .512 .358-3.740 MlU/ML Reason For Referral No Information Medications Medication SIG (Take, Route, Frequency, Duration) Notes Start Date End Date Status Methotrexate Sodium 2.5 MG Tablet 10 tabs Oral weekly; Duration: 30 days Active ALPRAZolam 0.5 MG Tablet TAKE 1/2 TO 1 T ABLET BY MOUTH TWICE DAILY NEEDED FOR ANXIETY; Duration: 30 09/27/2024 Active Metoprolol Tartrate 75 MG Tablet TAKE ONE TABLET BY MOUTH TWICE DAILY Oral Twice a day; Duration: 90 days Active Lisinopril 40 mg Tablet TAKE ONE TABLET BY MOUTH EVERY DAY; Duration: 90 Not-Taking Metoprolol Succinate ER 50 mg Tablet Extended Release 24 Hour TAKE ONE TABLET BY MOUTH TWICE DAILY (DOSE increase); Duration: 30 Not-Taking Vitamin D (Ergocalciferol) 1.25 MG (40455 UT) Capsule TAKE ONE CAPSULE BY MOUTH EVERY WEEK; Duration: 28 Not-Taking Lisinopril 20 mg Tablet 1 tab orally twi ce a day; Duration: 90 days Active tiZANidine HCl 2 MG Tablet 1 tablet as n eeded Orally at bedtime Not-Taking Folic Acid 1 mg Tablet TAKE ONE TABLET B Y MOUTH EVERY DAY; Duration: 90 Active DULoxetine HCl 60 mg Capsule Delayed Release Particles TAKE ONE CAPSULE BY MOUTH EVERY DAY; Duration: 90 Active Cyclobenzaprine HCl 10 MG Tablet TAKE ONE TABLET BY MOUTH THREE TIMES DAILY NEEDED FOR MUSCLE SPASMS FOR 30 DAYS Oral; Duration: 30 Days Not-Taking valACYclovir HCl 1 GM Tablet TAKE ONE TABLET BY MOUTH THREE TIMES DAILY FOR SEVEN DAYS NEEDED; Duration: 7 Active predniSONE 20 MG Tablet TAKE 1 TO 2 TABL ETS BY MOUTH DAILY FOR 3 TO 7 days NEEDED FOR joint pain flare Oral; Duration: 30 Days Active Ketoconazole 2 % Shampoo Apply to scalp, leave on 10-15 minutes then rinse thoroughly. Use 2-3 times weekly. External; Duration: 30 Active Fluocinonide 0.05 % Solution apply to itchy areas on the scalp twice per day for itch as needed External; Duration: 30 Active Immunizations Vaccine Route Administration Date Status Comme nts Flucelvax Trivalent, Syringe 0.5 mL, PF Unknown 025 Refused Social History Tobacco Use: Social History Observation Description Date Details (start date - stop date) Never Smoker NA - NA Social History Depression Screening Social Info Question Answer Notes depression screening findings Findings Negative (0 -4) PHQ-9 Little interest or p rigoberto in doing things Not at all Feeling down, depressed, or hopeless Not at all Trouble falling or staying asleep, or sleeping t oo much Not at all Feeling tired or having little energy Not at all Poor appetite or overeating Not at all Feeling bad about yourself, or that you are a failure, or have let yourself or your family down Not at all Trouble concentrating on thi ngs, such as reading the newspaper or watching television Not at all Moving or speaking so slowly that other people could have noticed. Or the opposite ? being so fidgety or restless that you have been moving around a lot more than usual Not at all Thoughts that you would be b altagracia off , or of hurting yourself in some way Not at all Total Score 0 Drugs/Alcohol: Social Info Question Answer Notes Alcohol Screen (Audit-C) Did you have a drink containing alcohol in the past year? No Points 0 Interpretation Negative Drugs Have you used drugs other than those for medical reasons in the past 12 months? No Comprehensive Health Assessm ent Social Info Question Answer Notes *Social Determinants of Health Has lack of transportation kept you from medical appointments, meetings, work or from getting things needed for daily living? No Recently, have you worried t hat your food would run out before you got money to buy more? No Do you feel physically and emotionally safe wher e you currently live? Yes Are you worried about losing your housing? No Tobacco Use: Social Info Question Answer Notes Tobacco Control (Standard) Tobacco use: Nonsmoker Additional Details Category Social Info Options Details Drugs/Alcohol: Do you smoke marijuana? De nies Do you drink alcohol? No Section Notes: PHQ-9 04/26/2024 PHQ-9 05/07/2024 12/31/2021 Problems Problem Type SNOMED Code ICD Code Onset Dates Problem Status W/U Status Risk Notes Problem Mixed hyperlipidemia (883281077) Mixed hyperlipidemia (E78.2) Active confirmed Problem Abnormal immunology finding (837438643) Other specified abnormal immunological findings in serum (R76.8) Active confirmed Problem Anxiety (86348563) Anxiety (F41.9) Active confi rmed Problem Annual wellness visit (431622163735188) Wellness examination (Z00.00) Active confirmed Problem Essential hypertension (42528986) Hypertension, unspecified type (I10) Active confirmed Problem Diabetes mellitus screening (441541516) Diabetes mellitus screening (Z13.1) Active confirmed Problem Long-term current use of drug therapy (277585023) Long-term use of immunosuppressant medication (Z79.899) Active confirmed Problem Lipid screening (534416629) Lipid screening (Z13.220) Active confirmed Problem Thyroid disorder screening (046399309) Thyroid disorder screen (Z13.29) Active confirmed Problem Dermatomyositis (520071458) Dermatomyositis (M33.90) Active confirmed Problem Primary hypertension (59809028) Primary hypertension (I10) Active confirmed Problem Sjogren syndrome with inflammatory arthritis (M35.05) Active confirmed Vital Signs Heart Rate 69 /min 05/07/2024 Temperature 96.8 degrees Fahrenheit 05/07/2024 Respiratory Rate 18 /min 05/07/2024 Blood pressure diastolic 78 mm Hg 05/07/2024 Oximetry 96 % 05/07/2024 Height-cm 152.4 cm 05/07/2024 Weight-kg 78.93 kg 05/07/2024 Height 60 in 05/07/2024 Blood pressure systolic 122 mm Hg 05/07/2024 Weight 174 lbs 05/07/2024 BMI 33.98 kg/m2 05/07/2024 Encounters Encounter Location Date Provider Diagnosis [facility] Office [address] [address] 04/26/2024 [facility] Mixed hyperlipidemia E78.2 ; Thyroid disorder screen Z13.29 ; Hyperglycemia R73.9 ; Long-term use of immunosuppressant medication Z79.899 ; Primary hypertension I10 ; Dermatomyositis M33.90 ; Anxiety F41.9 ; Sjogren syndrome with inflammatory arthritis M35.05 ; Depression screen Z13.31 ; Encounter for immunization Z23 and Immunization not carried out because of patient refusal Z28.21 [facility] Office [address] [address] 05/07/2024 [facility] Hyperglycemia R73.9 ; Sjogren syndrome with inflammatory arthritis M35.05 ; Long-term use of immunosuppressant medication Z79.899 ; Primary hypertension I10 ; Thyroid disorder screen Z13.29 ; Mixed hyperlipidemia E78.2 ; Encounter for Medicare annual wellness exam Z00.00 and Breast cancer screening by mammogram Z12.31 [facility] [address] [address] 10/10/2024 [facility] Assessments Encounter Date Diagnosis (ICD Code) Assessment Notes Treatment Notes Treatment Clinical Notes Section Notes 04/26/2024 Mixed hyperlipidemia (ICD-10 - E78.2) lipids 04/26/2024 Thyroid disorder screen (ICD-10 - Z13.29) tsh 05/07/2024 Hyperglycemia (ICD-1 0 - R73.9) ha1c 05/07/2024 Sjogren syndrome wit h inflammatory arthritis (ICD-10 - M35.05) 05/07/2024 Long-term use of immunosuppressant medication (ICD-10 - Z79.899) 04/26/2024 Hyperglycemia (ICD-1 0 - R73.9) 04/26/2024 Long-term use of immunosuppressant medication (ICD-10 - Z79.899) ha1c 05/07/2024 Primary hypertension (ICD-10 - I10) continue meds 05/07/2024 Thyroid disorder screen (ICD-10 - Z13.29) tsh 04/26/2024 Primary hypertension (ICD-10 - I10) cbc cmp metoprolol lisinopril 05/07/2024 Mixed hyperlipidemia (ICD-10 - E78.2) lipids 04/26/2024 Dermatomyositis (ICD-10 - M33.90) dr merrick avina 05/07/2024 Encounter for Medicare annual wellness exam (ICD-10 - Z00.00) Please schedule your next AWV in 1 year. 04/26/2024 Anxiety (ICD-10 - F41.9) alprazolam 04/26/2024 Sjogren syndrome wit h inflammatory arthritis (ICD-10 - M35.05) 05/07/2024 Breast cancer screening by mammogram (ICD-10 - Z12.31) 04/26/2024 Depression screen (ICD-10 - Z13.31) 04/26/2024 Encounter for immunization (ICD-10 - Z23) 04/26/2024 Immunization not carried out because of patient refusal (ICD-10 - Z28.21) 04/26/2024 Other Questions asked and answered; discharged to home. 05/07/2024 Other Questions asked and answered; discharged to home. Venipuncture: Performed by:Carolyn ESPINOZA Attempts:x1 Location: LAC Needle gauge: 21g Patient tolerated well. Plan Of Treatment Pending Test Test Name Order Date Mammogram Screening Digital Breast Tomos ynthesis, bilateral - 68461 05/07/2024 Insurance Providers Payer Name Payer Address Payer Phone Subscriber Number Group Number Insured Name Patient Relationship to Insured Coverage Start Date Coverage End Date [employer] Medicare Advantage PPO [address] [address] [place] [address] [id number] Kassi MADISON Self - patient is the insured Medical (General) History Medical History History ICD Code High Blood Pressure rheumatoid arthritis Arthritis dermatomyositis gallstones breast cancer Surgical History Surgery Date(Month/Year) right knee replacement tubal ligation cholecystectomy breast reconstruction right mastectomy Hospitalization History Reason Date(Month/Year) see surgical hx
--- OUTSIDE RECORDS SUMMARY | 2024-11-18 17:41 | XMS_ITS | Encounter Summary ---
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) Social History Tobacco Use Types Packs/Day Years Used Date Smoking Tobacco: Never Assessed Comments Unknown Sex and Gender Information Value Date Recorded Sex Assigned at Not on file Legal Sex Female 2:47 AM [employer] Gender Identity Not on file Sexual Orientation Not on file documented as of this encounter Plan of Treatment Not on file documented as of this encounter Procedures Procedure Name Priority Date/Time Associated Diagnosis Comments NM CARDIAC MUGA SCAN Routine 11/27/2007 1:45 PM CDT documented in this encounter Results * NM CARDIAC MUGA SCAN (11/27/2007 1:45 PM CDT) 11/27/2007 1:45 PM CDT Narrative INTERFACE SYSTEM - 11/28/2007 5:11 PM CDT 11-27-07 Radiopharmaceutical: Tc-99m (technetium-99m) ultra tagged RBC Dose: 31.3 mCi Reason for Consultation: Carcinoma of the breast. Status post chemotherapy. Reevaluate post therapy cardiac function. FUNCTIONAL CARDIAC ANALYSIS (MUGA): QUANTITATIVE DATA LEFT RIGHT VENTRICLE VENTRICLE DATE EF PFR TPF EF SVR (55-75%) (>2.50 EDV/sec) (<150 msec) (%) (0.85-1.25) 08/24/07 71 4.73 186 62 0.90 11/27/07 70 3.90 182 55 0.87 The right heart was initially evaluated with a first pass gated acquisition, but this was technically suboptimal. The blood pool was then labeled and the heart imaged in multiple projections. Both right and left ventricular function data was determined on the gated acquisition. The heart rate was 104 BPM during the quantitative left ventricular acquisition. On the anterior and GAMBIAN dynamic images, the size and shape of the heart remains within normal limits. The comparative images with the prior examination showed no significant change. The ventricles remain about equal and normal in size and both seem to contract concentrically on the last examination and today's study. IMPRESSION: There has been no significant interval change in cardiac function since the last examination of 08/24/07. The left ventricle continues to show normal systolic function, at rest. Mild diastolic function is again noted. The overall function of the right ventricle is unchanged. The atria and great vessels also are unremarkable and show no significant change. [facility] 1658 Dictated By: Nicola Kellogg M.D. Electronically Signed By: Nicola Kellogg M.D. Date Signed: 11/28/07 [facility] Procedure Note Nicola Kellogg - 11/28/2007 11-27-07 Radiopharmaceutical: Tc-99m (technetium-99m) ultra tagged RBC Dose: 31.3mCi Reason for Consultation: Carcinoma of the breast. Status postchemotherapy. Reevaluate post therapy cardiac function. FUNCTIONAL CARDIAC ANALYSIS (MUGA): QUANTITATIVE DATA LEFT RIGHT VENTRICLE VENTRICLE DATE EF PFR TPF EF SVR (55-75%) (>2.50 EDV/sec) (<150 msec) (%) (0.85-1.25) 08/24/07 71 4.73 186 62 0.90 11/27/07 70 3.90 182 55 0.87 The right heart was initially evaluated with a first pass gatedacquisition, but this was technically suboptimal. The blood pool was then labeled and the heart imaged inmultiple projections. Both right and left ventricular function data was determined on the gated acquisition.The heart rate was 104 BPM during the quantitative left ventricular acquisition. On the anterior and GAMBIAN dynamic images, the size and shape of the heartremains within normal limits. The comparative images with the prior examination showed no significantchange. The ventricles remain about equal and normal in size and both seem to contract concentrically on thelast examination and today's study. IMPRESSION: There has been no significant interval change in cardiac function sincethe last examination of 08/24/07. The left ventricle continues to show normal systolic function, at rest.Mild diastolic function is again noted. The overall function of the right ventricle is unchanged. Theatria and great vessels also are unremarkable and show no significant change. [facility] 1658 Dictated By: Nicola Kellogg M.D. Electronically Signed By: Nicola Kellogg M.D. Date Signed: 11/28/07 Sandeep Jesenia Dubois MD NM ORDERABLES Final Result INTERFACE SYSTEM Refer to clinic/hospital department documented in this encounter Visit Diagnoses Diagnosis Malignant neoplasm of upper-outer quadrant of female breast (CMS/HCC) Malignant neoplasm of upper-outer quadrant of female breast documented in this encounter Care Teams Sales And Marketing Assistant Relationship Specialty Start Date End Date Ilda Hicks APN [facility] [address] [address] PCP - General 03/29/08 documented as of this encounter
--- NOTE | 2024-11-18 18:23 | CTR_ITS ---
PROCEDURE INFORMATION: Exam: CT Head Without Contrast Exam date and time: 11/18/2024 7:09 PM Age: 74 years old Clinical indication: C/O dizziness. Family states patient sustained a fall with head strike approximately a week ago. ; Additional info: Dizzy TECHNIQUE: Imaging protocol: Computed tomography of the head without contrast. Radiation optimization: All CT scans at this facility use at least one of these dose optimization techniques: automated exposure control; mA and/or kV adjustment per patient size (includes targeted exams where dose is matched to clinical indication); or iterative reconstruction. COMPARISON: No relevant prior studies available. RADIATION DOSE METRICS: Total DLP (mGy-cm): 1064.98 FINDINGS: Brain: No acute hemorrhage, mass effect or extra-axial collection. Asymmetric hypoattenuating foci in the right occipital periventricular white matter possibly related to encephalomalacia although no CT head comparison is available on PACS. Further evaluation with brain MRI could be considered for better characterization. Cerebral ventricles: No ventriculomegaly. Paranasal sinuses: Visualized sinuses are unremarkable. No fluid levels. Mastoid air cells: Visualized mastoid air cells are well aerated. Bones: Unremarkable. No acute fracture. Soft tissues: Unremarkable. CT/CT head wo con* [id number] IMPRESSION: 1. No acute hemorrhage, mass effect or extra-axial collection. 2. Asymmetric hypoattenuating foci in the right occipital periventricular white matter possibly related to encephalomalacia although no CT head comparison is available on PACS. Further evaluation with brain MRI could be considered for better characterization.
[2024-11-18 18:33] LABS: Hematocrit 41.9 % (36-47); Hemoglobin 14.20 g/dL (11.27-16.99); Mean Corpuscular HGB Conc 33.9 g/dL (30-55); Mean Corpuscular Hemoglobin 33.3 pg (27-33); Mean Corpuscular Volume 98.1 fl (85-98); Nucleated Red Blood Cells % 0 %; Platelet Count 266 10^3/cmm (157-399); Red Blood Count 4.27 10^6/uL (3.85-5.65); White Blood Count 8.15 10^3/uL (3.29-11.43)
[2024-11-18 18:41] LABS: Specific Gravity, Urine 1.015 (1.005-1.030)
[2024-11-18 18:42] LABS: Glucose Urine UA Trace (Normal); Nitrate Urine Negative (Negative); UA Manual Slide Review YES
[2024-11-18 18:43] LABS: Add Urine Microscopic? YES
--- NOTE | 2024-11-18 18:54 | XRR_ITS ---
PROCEDURE INFORMATION: Exam: XR Chest Exam date and time: 11/18/2024 6:58 PM Age: 74 years old Clinical indication: Other: Dizziness; Prior surgery; Surgery date: 6+ months; Surgery type: Mastectomy; Additional info: Dizzy; Falls; HX breast CA with RT mastectomy TECHNIQUE: Imaging protocol: Radiologic exam of the chest. Views: 1 view. COMPARISON: CR XR chest 2V* [id number] 12/10/2020 11:50 AM FINDINGS: Lungs: Unremarkable. No consolidation. Pleural spaces: Unremarkable. No pleural effusion. No pneumothorax. Heart/Mediastinum: Unremarkable. No cardiomegaly. Bones/joints: Small osteophytes thoracic spine. Soft tissues: Axillary surgical clips. XR/XR chest 1V portable [id number] IMPRESSION: No acute findings.
--- NOTE | 2024-11-18 18:54 | XRR_ITS ---
PROCEDURE INFORMATION: Exam: XR Left Foot Exam date and time: 11/18/2024 6:58 PM Age: 74 years old Clinical indication: Pain; Foot; Left; Additional info: Lt foot pain/swelling after fall x 1 week ago; Multiple abrasions to medial lt foot; Dizzy; Fall; HX breast CA with RT mastectomy TECHNIQUE: Imaging protocol: Radiologic exam of the left foot. Views: 3 or more views. COMPARISON: No relevant prior studies available. FINDINGS: Bones/joints: Moderate superior calcaneal enthesophyte. Small inferior calcaneal enthesophyte. No acute fracture or subluxation. Soft tissues: Normal. XR/XR foot LT min 3V* [id number] IMPRESSION: No acute fracture or subluxation.
[2024-11-18 19:02] LABS: Alanine Aminotransferase 36 U/L (0-33); Albumin Level 4.4 g/dL (3.5-5.2); Alkaline Phosphatase 115 U/L (35-105); Anion Gap 16.8 (5-19); Aspartate Amino Transferase 36 U/L (0-32); Blood Urea Nitrogen 15 mg/dL (8-23); Calcium 9.5 mg/dL (8.5-10.5); Carbon Dioxide 25 mmol/L (22-29); Chloride 97 mmol/L (98-107); Creatinine Clr Calc Pharmacy 77.3118; Globulin 3.8 g/dL (1.3-4.6); Glucose 160 mg/dL (65-115); Osmolality Calculated 284 mOsm/kg (285-295); Potassium 3.8 mmol/L (3.5-5.1); Sodium 135 mmol/L (136-145); Total Protein 8.2 g/dL (6.6-8.7)
--- NOTE | 2024-11-18 19:45 | ED_ITS ---
HPI - Dizziness 2 General: Chief Complaint: Dizziness Stated Complaint: dizzy, nausea Time Seen by Provider: 11/18/24 17:41 History of Present Illness: HPI Narrative: Patient is a 74-year-old female presenting with complaints of dizziness and difficulty walking for the past three days, with symptoms significantly worsening today. She describes feeling unsteady and reports 'running into stuff' but denies room-spinning vertigo. The patient notes that her dizziness worsens with head turning and when standing up. She reports possible mild visual changes and has new-onset speech difficulties per patient and family. The patient's cousin and mother, who accompanied her, confirm changes in her speech pattern noted today. Patient reports a recent fall at a ball game last week where she injured her left foot on concrete bleachers and has not been walking well since. She also reports a second fall while 'running at the dogs' where she hit her head in the posterior region, though no visible bruising was noted on examination. She denies nausea or vomiting. No prior history of stroke reported. Related Data Previous Rx's ?Medication ?Instructions ?Recorded nystatin 100,000 unit/gram topical 1 applic topical TI D #30 grams 07/21/22 powder alprazolam 0.5 mg tablet (Xanax) 0.5 mg PO DAILY PRN a nxiety 30 09/29/23 days #30 tabs cyclobenzaprine 10 mg tablet 10 mg PO TID PRN muscle s pasm 30 09/29/23 days #90 tabs duloxetine 60 mg capsule,delayed 60 mg PO DAILY 90 day s #90 caps 09/29/23 release (Cymbalta) lisinopril 20 mg tablet 20 mg PO BID 90 days #180 ta bs 09/29/23 metoprolol tartrate 75 mg tablet 75 mg PO BID 90 days #180 tabs 09/29/23 prednisone 20 mg tablet See Rx Instructions PO .COMP LEORA 04/23/24 PRN joint pain flare #30 tabs folic acid 1 mg tablet 1 mg PO DAILY 90 days #90 ta bs 10/31/24 methotrexate sodium 2.5 mg tablet See Rx Instructions PO .week 10/31/24 Rheumatoid Arthritis #150 tabs tramadol 50 mg tablet 50 mg PO BID PRN pain (scale score 10/31/24 7-10) #60 tabs Allergies Allergy/AdvReac Type Severity Reaction Status Date / Time No Known Allergies Allergy Verified 04/09/24 10:31 PFSH ED 2 PFSH: Medical History Degenerative joint disease (DJD) of lumbar spine Immunization counseling Surgical History Hx of right mastectomy Hx of tonsillectomy Hx of cholecystectomy Family History Father CAD (coronary artery disease) Stroke Hypertension Mother Cancer Hypertension Denies family history of Diabetes Social History Smoking and tobacco/nicotine status: never used tobacco/nicotine Alcohol intake: current Alcohol intake frequency: holidays/special occasions only Physical Exam 2 Const: COMMON NORMALS: alert GENERAL APPEARANCE: cooperative and frail appearing HENMT: COMMON NORMALS: normocephalic and atraumatic HEAD & SCALP: n ormocephalic and atraumatic Eye: COMMON NORMALS: Equal, round and reactive pupils present and EOMs intact bilaterally PUPIL: Yes Equal, round and reactive pupils present Neck/C-Spine: GENERAL: Yes trachea midline Chest: CHEST: Yes Symmetrical chest wall rise Resp: COMMON NORMALS: normal respiratory effort, No retractions, No use of accessory muscles and clear to auscultation bilaterally AUSCULTATION: clear to auscultation bilaterally Cardio: COMMON NORMALS: regular rate and regular rhythm RATE: regular rate RHYTHM: regular rhythm GI: COMMON NORMALS: Normal to inspection, nondistended, normoactive bowel sounds present Neuro: ALPA COMA SCALE: document GCS findings Alpa coma scale eye opening: Spontaneous [place] coma scale verbal response: Orientated [place] coma scale motor response: Obey commands [place] coma scale total score: 15 S ENSORIUM/ORIENTATION: Yes alert COORDINATION/BALANCE: [id number] test normal SPEECH: abnormal speech (slow) Details: slurred (mildly. ) SENSORY EXAM: Yes extremities (intact) MOTOR EXAM: Pronator motor function not present COORDINATION: [id number] test normal Course 2 Vital Signs: Vital signs: Vital Signs Temperature 98.3 F 11/18/24 17:37 Pulse Rate 82 11/18/24 18:30 Respiratory Rate 18 11/18/24 17:41 Blood Pressure 181/101 11/18/24 18:21 Pulse Oximetry 98 11/18/24 18:21 Oxygen Delivery Me thod Room Air 11/18/24 18:21 MDM - Dizziness Medical Decision Making Head CTs shows asymmetric hypoattenuation focus in the right occipital periventricular white matter likely related to encephalomalacia. MRI is suggested. Patient was very hypertensive on arrival. Blood pressures improved currently. This patient may have had a stroke, although somewhat inconclusive. At least hypertensive emergency. Will need MRI, likely echo, etc. Blood pressure control. Hospitalist has seen the patient. Lab Data 11/18/24 18:19 11/18/24 18:[address] 11/18/24 18:23 IMPRESSION: 1. No acute hemorrhage, mass effect or extra-axial collection. 2. Asymmetric hypoattenuating foci in the right occipital periventricular white matter possibly related to encephalomalacia although no CT head comparison is available on PACS. Further evaluation with brain MRI could be considered for better characterization. Chest X-Ray 11/18/24 18:54 IMPRESSION: No acute findings. Foot X-Ray 11/18/24 18:54 IMPRESSION: No acute fracture or subluxation. Laboratory Results WBC 8.15 10^3/uL (3.29-11.43) 11/18/24 18:19 RBC 4.27 10^6/uL (3.85-5.65) 11/18/24 18:19 Hgb 14.20 g/dL (11.27-16.99) 11/18/24 18:19 Hct 41.9 % (36-47) 11/18/24 18:19 MCV 98.1 fl (85-98) H 11/18/24 18:19 MCH 33.3 pg (27-33) H 11/18/24 18:19 MCHC 33.9 g/dL (30-55) 11/18/24 18:19 RDW 14.8 % (12.1-15.1) 11/18/24 18:19 Plt Count 266 10^3/cmm (157-399) 11/18/24 18:19 MPV 9.7 fL (7.4-10.4) 11/18/24 18:19 Neut % (Auto) 81.2 % 11/18/24 18:19 Lymph % (Auto) 11.5 % 11/18/24 18:19 [place] % (Auto) 5.9 % 11/18/24 18:19 Eos % (Auto) 0.4 % 11/18/24 18:19 Baso % (Auto) 0.4 % 11/18/24 18:19 Neut # (Auto) 6.62 10^3/uL (1.8-7.7) 11/18/24 18:19 Lymph # (Auto) 0.9 10^3/uL (0.8-4.8) 11/18/24 18:19 [place] # (Auto) 0.5 10^3/uL (0.2-0.9) 11/18/24 18:19 Eos # (Auto) 0.0 10^3/uL (0.0-0.8) 11/18/24 18:19 Baso # (Auto) 0.0 10^3/uL (0.0-0.1) 11/18/24 18:19 Nucleated RBC % (auto) 0 % 11/18/24 18:19 Nucleated RBCs # 0.0 /100WBC 11/18/24 18:19 Sodium 135 mmol/L (136-145) L 11/18/24 18:19 Potassium 3.8 mmol/L (3.5-5.1) 11/18/24 18:19 Chloride 97 mmol/L (98-107) L 11/18/24 18:19 Carbon Dioxide 25 mmol/L (22-29) 11/18/24 18:19 Anion Gap 16.8 (5-19) 11/18/24 18:19 BUN 15 mg/dL (8-23) 11/18/24 18:19 Creatinine 0.6 mg/dL (0.5-0.9) 11/18/24 18:19 GFR Calculation Not Reportable 11/18/24 18:19 Glucose 160 mg/dL (65-115) H 11/18/24 18:19 Calculated Osmolality 284 mOsm/kg (285-295) L 11/18/24 18:19 Calcium 9.5 mg/dL (8.5-10.5) 11/18/24 18:19 Total Bilirubin 0.7 mg/dL (0.15-1.2) 11/18/24 18:19 AST 36 U/L (0-32) H 11/18/24 18:19 ALT 36 U/L (0-33) H 11/18/24 18:19 Alkaline Phosphatase 115 U/L (35-105) H 11/18/24 18:19 Total Protein 8.2 g/dL (6.6-8.7) 11/18/24 18: Albumin 4.4 g/dL (3.5-5.2) 11/18/24 18: Globulin 3.8 g/dL (1.3-4.6) 11/18/24 18:19 Urine Color Yellow (Yellow) 11/18/24 18:25 Urine Appearance Turbid (CLEAR) A 11/18/24 18: Urine pH 8 (5-7) A 11/18/24: Ur Specific [place] 1.015 (1.005-1.030) 11/18/24 18: Urine Protein Trace (Negative) 11/18/24 18: Urine Glucose (UA) Trace (Normal) H 11/18/24 18: Urine Ketones 1+ (Negative) H 11/18/24 18:25 Urine Blood Neg (Negative) 11/18/24 18:25 Urine Nitrate Negative (Negative) 11/18/24 18:25 Urine Bilirubin Neg (Negative) 11/18/24 18:25 Urine Urobilinogen Neg mg/dL (Negative) 11/18/24 18:25 Ur Leukocyte Esterase Trace (Negative) H 11/18/24 18:25 Urine RBC 0-4 /hpf (0-2) H 11/18/24 18:25 Urine WBC 0-4 /hpf (0-5) H 11/18/24 18:25 Ur Squamous Epith Cells 0-4 /hpf (0-5) H 11/18/24 18:25 Amorphous Sediment 2+ /hpf 11/18/24 18:25 Urine Bacteria 1+ /hpf (NONE) H 11/18/24 18:25 All radiology interpretation(s) finalized by discharge Critical Care Time 2 Critical Care Time: Critical Care Time: Yes Total Critical Care Time: 35 Attestation: This case had a high probability of a clinically significant, sudden, or life threatening deterioration of this patient's condition which required my full and direct attention, intervention and personal management. Time is independent of any procedures performed. Discharge Plan Discharge Patient Disposition: Admitted As Inpatient Admit Provider: Dixon Hatch Clinical Impression: Hypertensive emergency, Dizziness Condition: Fair Coding Level of Care Code ED Service Delivery Manager for Jada Aguilera
[2024-11-18] MEDS: labetalol 5 mg/mL SDV 20mL 20 MG IVP (22:27)
--- NOTE | 2024-11-18 22:29 | P.HP_ITS ---
Providers/Chief Complaint 2 Admitting Physician: Dixon Hatch MD Primary Care Provider: Ilda Hicks APN Chief Complaint: dizzy, nausea History of Present Illness as per the previous notes and the patient: Kassi Rodriguez is a 74 year old female with PMH of uncontrolled HTN, right knee surgery status post chronic dizziness on meclizine, major depression, degenerative joint joint disease, rheumatoid arthritis with mild finger deformities of the hand came with dizziness and found to have uncontrolled hypertension. There was associated mild nausea and vomiting but this was more related to her dizziness that comes on and off. She has been on meclizine but it did not help her. In the past she did not see any physical therapist as well. There is no associated syncope, presyncope or any fall associated with dizziness. The dizziness reported is more while turning her head to the right side. There is no dizziness while standing from sitting position. No retro- orbital pressure or any throbbing or thunderclap like headache. The patient did not report any fever, chills, nausea, vomit, chest pressure chest pain, abdominal pain, diarrhea, or any change in her urinary or bowel habits.There is no reporting of lower leg edema, any orthopnea or PND. The patient did not had any recent sick contacts, or any travel history. Patient is compliant to her medications. However due to ongoing dizziness and nausea vomiting she missed her medications for about a week. Review of Systems 2 General: Reports: 10 or more systems reviewed and unremarkable except in HPI and below Medications/Allergies Home Medications ?Medication ?Instructions ?Recorded ?Confirmed ?Last Taken ?Type nystatin 100,000 unit/gram topical 1 applic topical TI D #30 grams 07/21/22 10/31/24 Unknown Rx powder alprazolam 0.5 mg tablet (Xanax) 0.5 mg PO DAILY PRN a nxiety 30 09/29/23 10/31/24 Unknown Rx days #30 tabs cyclobenzaprine 10 mg tablet 10 mg PO TID PRN muscle s pasm 30 09/29/23 10/31/24 Unknown Rx days #90 tabs duloxetine 60 mg capsule,delayed 60 mg PO DAILY 90 day s #90 caps 09/29/23 10/31/24 Unknown Rx release (Cymbalta) lisinopril 20 mg tablet 20 mg PO BID 90 days #180 ta bs 09/29/23 10/31/24 Unknown Rx metoprolol tartrate 75 mg tablet 75 mg PO BID 90 days #180 tabs 09/29/23 10/31/24 Unknown Rx prednisone 20 mg tablet See Rx Instructions PO .COMP LEORA 04/23/24 10/31/24 Unknown Rx PRN joint pain flare #30 tabs folic acid 1 mg tablet 1 mg PO DAILY 90 days #90 ta bs 10/31/24 10/31/24 Unknown Rx methotrexate sodium 2.5 mg tablet See Rx Instructions PO .week 10/31/24 10/31/24 Unknown Rx Rheumatoid Arthritis #150 tabs tramadol 50 mg tablet 50 mg PO BID PRN pain (scale score 10/31/24 10/31/24 Unknown Rx 7-10) #60 tabs Allergies Allergy/AdvReac Type Severity Reaction Status Date / Time No Known Allergies Allergy Verified 04/09/24 10:31 PFSH Acute 2 PFSH: Medical History (Updated 11/18/24 @ 22:49 by Dixon Hatch MD) Degenerative joint disease (DJD) of lumbar spine Immunization counseling Surgical History Hx of right mastectomy Hx of tonsillectomy Hx of cholecystectomy Family History Father CAD (coronary artery disease) Stroke Hypertension Mother Cancer Hypertension Denies family history of Diabetes Social History Smoking and tobacco/nicotine status: never used tobacco/nicotine Alcohol intake: current Alcohol intake frequency: holidays/special occasions only Vitals/I&O/Wt Last Vital Signs Temp 98.3 F 11/18/24 17:37 Pulse 82 11/18/24 18:30 Resp 18 11/18/24 17:41 BP 181/101 11/18/24 18:21 Pulse Ox 98 11/18/24 18:21 O2 Del Method Room Air 11/18/24 18:21 Weight last 48 hrs Weight 79.379 kg Physical Exam 2 Narrative: General: Alert and oriented, lying comfortably without any distress, able to speak in full sentences. HEENT: Normocephalic, atraumatic, grossly unremarkable exam Cardio: normal rate rhythm, normal S1-S2 without any murmurs, rubs, or gallops and JVD normal Respiratory: normal vascular breathing on auscultation without any wheezes, stridor, rhonchi GI: Abdomen soft, nontender, nondistended, normoactive bowel sounds present all 4 quadrants, Neuro: intact cranial nerves, motor and sensory and cerebellar/coordination function without any focal neurological deficit, no dysdiadochokinesia, finger- nose test normal, csxc-kn-[id number] test normal, reflexes equivocal, no nystagmus.. Behavior: Appropriate and cooperative Extremities: Adequate palpable pulses, trace pedal edema, patient having rheumatoid hands bilaterally. No tenderness or metacarpal fullness patient acute on clinical exam Skin: grossly unremarkable exam Data 11/18/24 18:19 11/18/24 18:19 A&P Assessment and plan 1. Dizziness: - Meclizine as needed however in the past it did not work therefore also to have OT PT evaluation for her since her dizziness is more related with her head turning to the right side and highly likely related to the BPPV/right-sided ear canal endolymph adequate circulation. 2. Encephalomalacia: - Encephalomalacia/hypoattenuating lesion found in the cerebellar region - MRI brain to look for the lesion. (Patient having any of the right side s/p right knee replacement) - Could be related to her high blood pressure presentation since the patient does not elicit any focal neurological deficit concerning for stroke. Clinical examination and coordination unremarkable 3. Hypertensive urgency: - Patient provided her home medications in the ER and her blood pressure was normal - Continue home medication for high blood pressure, metoprolol 75 mg twice daily, lisinopril 20 mg daily twice daily. - Monitor vitals - TSH - Monitor for any neurological symptoms associated with high blood pressure - Telemetry monitoring 4. Degenerative joint disease (DJD) of lumbar spine: - Patient having rheumatoid arthritis and on methotrexate seen in the home medications and folic acid with it. - Medication to be reconciled before's initiating home medication - No active joint inflammation or pain on clinical examination, however the right hand deformities appreciated - Continue monitor and adequate analgesia as needed - Patient taking duloxetine 60 mg daily, to resume after reconciliation 5. Rheumatoid arthritis: - Patient on methotrexate and folic acid at home - To resume medication after reconciliation 6. Major depression in partial remission: - Patient taking alprazolam 0.5 mg daily as needed for anxiety - To continue after reconciliation 7. High risk medication use: - Adequate counseling has been provide for appropriate medication use PDMP PDMP Reviewed: Not Reviewed Attestations 2 Medical Necessity Statement*: Kassi Rodriguez's hospital stay will require greater than 2 midnights for management of dizziness requiring orthopedic evaluation, uncontrolled hypertension Time Spent in Patient Care: 16 - 35 minutes (>than 50% of time sp ent in counselling and/or direct pt care on unit) . Other Attestations: Patient condition has been discussed at length with the patient/family, I have independently reviewed the chart labs imaging/diagnostics/EKG. the goals of care and code status with the patient/family/NOK/legal manufacturer's representative, and documented accordingly. The patient/family has been informed about the current condition and further plan of care. Agreed with the plan of care and understood without any language barrier. Every effort was made to ensure accuracy of utilization engineer. Any obvious errors or omissions should be clarified with the author of the document. Coding Level of Care Code 99970 Diagnoses Dizziness R42 Encephalomalacia G93.89 Hypertensive urgency I16.0 Degenerative joint disease (DJD) of lumbar spine M47.816 Rheumatoid arthritis M06.9 Major depression in partial remission F32.4 High risk medication use Z79.899
[2024-11-18] MEDS: ondansetron 2 mg/ML SDV 2 mL 4 MG IVP (22:56)
[2024-11-18] MEDS: heparin 5,000 unit/mL INJ 1 mL 5000 UNIT SUBCUT (23:26)
[2024-11-18 23:50] LABS: Magnesium 2.0 mg/dL (1.7-2.3); Thyroid Stimulating Hormone 0.23 uIU/mL (0.27-4.20)
[2024-11-19] VITALS (11 sets, daily range): BP systolic 151–185; BP diastolic 90–121; PULSE 78–100; RESP 16–18; TEMP 36.4–36.6; O2SAT 91–94
[2024-11-19 03:38] LABS: Alanine Aminotransferase 34 U/L (0-33); Albumin Level 4.1 g/dL (3.5-5.2); Alkaline Phosphatase 109 U/L (35-105); Anion Gap 19.6 (5-19); Aspartate Amino Transferase 31 U/L (0-32); Blood Urea Nitrogen 16 mg/dL (8-23); Calcium 9.4 mg/dL (8.5-10.5); Carbon Dioxide 23 mmol/L (22-29); Chloride 95 mmol/L (98-107); Creatinine Clr Calc Pharmacy 77.6206; Globulin 3.6 g/dL (1.3-4.6); Glucose 129 mg/dL (65-115); Osmolality Calculated 281 mOsm/kg (285-295); Potassium 3.6 mmol/L (3.5-5.1); Sodium 134 mmol/L (136-145); Total Protein 7.7 g/dL (6.6-8.7)
[2024-11-19] MEDS: alum-mag-hydroxide-sime 30 mL UDC 15 ML PO ×3 (04:46→20:28)
[2024-11-19] MEDS: ondansetron 2 mg/ML SDV 2 mL 4 MG IVP ×2 (04:52→09:46)
--- OUTSIDE RECORDS SUMMARY | 2024-11-19 06:47 | XMS_ITS | Encounter Summary ---
Author Organization [facility] Address [address] [place] [address] Care Team Providers Care Agriculture Specialist Name Role Phone Hicks, Ilda Forbes APN Primary Care Provider [phone] Encounter Details Date Type Department Care Team (Late st Contact Info) Description 08/15/2007 Outpatient [facility] [address] [place] [address] Katie Spence, STATOR WINDER [address] [place] [address] Social History Tobacco Use Types Packs/Day Years Used Date Smoking Tobacco: Never Assessed Comments Unknown Sex and Gender Information Value Date Recorded Sex Assigned at Not on file 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 Gender Identity Not on file Sexual Orientation Not on file documented as of this encounter Plan of Treatment Not on file documented as of this encounter Procedures Procedure Name Priority Date/Time Associated Diagnosis Comments PATHOLOGY Routine 08/15/2007 8:42 AM CDT documented in this encounter Results * PATHOLOGY (08/15/2007 8:42 AM CDT) PATHOLOGY/CY TOLOGY REPORT [facility] [address] [facility] [address] Patient: KASSI RODRIGUEZ Accn No: [id number] Collected: 08/15/2007 8:42:00 AM DERMATOPATHOLOGY FINAL REPORT Diagnosis 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 *Gross examination performed at [facility], [address] [place] [address] DI RP /WLS Microscopic Description Sections show a band-like infiltrate of lymphocytes and eosinophils, which focally obscures the dermal-epidermal junction. The adjacent epidermis shows vacuolar changes and contains necrotic keratinocytes. INTERFACE SYSTEM 08/15/2007 8:42 AM CDT Katie Spence [facility] PATHOLOGY/CYTOLOGY ORDERABLES Final Result INTERFACE SYSTEM Refer to clinic/hospital department documented in this encounter Visit Diagnoses Not on filedocumented in this encounter Care Teams Agriculture Specialist Relationship Specialty Start Date End Date Ilda Hicks APN [facility] [address] [address] PCP - General 03/29/08 documented as of this encounter
--- OUTSIDE RECORDS SUMMARY | 2024-11-19 06:47 | XMS_ITS | Encounter Summary ---
Author Organization [facility] Address [address] [place] [address] Care Team Providers Care Bindery Worker Name Role Phone Hicks, Ilda Forbes APN Primary Care Provider [phone] Encounter Details Date Type Department Care Team (Latest Contact Info) Description 08/24/2007 Outpatient Historical [facility] Nuclear Medicine[address] [address] Jesenia Dubois MD NO ADDRESS ON FILE Malignant Neoplasm of Breast (Female), Unspecified Site (CMS/HCC) Social History Tobacco Use Types Packs/Day Years Used Date Smoking Tobacco: Never Assessed Comments Unknown Sex and Gender Information Value Date Recorded Sex Assigned at Not on file 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 Electronically Signed By: Humberto Betanocurt M.D. Date Signed: 08/24/07 Jesenia Dubois MD [place] ORDERABLES Final Result INTERFACE SYSTEM Refer to clinic/hospital department documented in this encounter Visit Diagnoses Diagnosis Malignant neoplasm of breast (female), unspecified site documented in this encounter Care Teams Bindery Worker Relationship Specialty Start Date End Date Ilda Hicks APN [facility] [address] [address] PCP - General 03/29/08 documented as of this encounter
--- OUTSIDE RECORDS SUMMARY | 2024-11-19 06:47 | XMS_ITS | Encounter Summary ---
Author Organization [facility] Address [address] [place] [address] Care Team Providers Care Marker Machine Name Role Phone Hicks, Ilda Forbes APN Primary Care Provider [phone] Encounter Details Date Type Department Care Team (Latest Contact Info) Description 08/23/2007 Outpatient Historical 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
--- OUTSIDE RECORDS SUMMARY | 2024-11-19 06:48 | XMS_ITS | Encounter Summary ---
Author Organization [facility] Address [address] [place] [address] Care Team Providers Care Disintegrator Feeder Name Role Phone Ilda Hicks APN Primary Care Provider [phone] Encounter Details Date Type Department Care Team (Latest Contact Info) Description 02/20/2003 Outpatient Historical [facility] [address] [facility] [address] [place] [id number] Nae Lowe MD NO ADDRESS ON FILE SYMPTOMS IN BREAST NEC (Primary Dx) Social History Tobacco Use Types Packs/Day Years Used Date Smoking Tobacco: Never Assessed Comments Unknown Sex and Gender Information Value Date Recorded Sex Assigned at Not on file 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
--- OUTSIDE RECORDS SUMMARY | 2024-11-19 06:48 | XMS_ITS | Encounter Summary ---
Author Organization [facility] Address [address] [place] [address] Care Team Providers Care Creel Clerk Name Role Phone Ilda Hicks APN Primary Care Provider [phone] Encounter Details Date Type Department Care Team (Latest Contact Info) Description 05/31/2001 Outpatient Historical [facility] Radha, Dimas Wright MD [address] [address] ABDOMINAL PAIN RUQ (Primary Dx); CHOLELITHIASIS NOS Social History Tobacco Use Types Packs/Day Years Used Date Smoking Tobacco: Never Assessed Comments Unknown Sex and Gender Information Value Date Recorded Sex Assigned at Not on file 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
--- OUTSIDE RECORDS SUMMARY | 2024-11-19 06:48 | XMS_ITS | Encounter Summary ---
Author Organization [facility] Address [address] [place] [address] Care Team Providers Care Printing Technician Name Role Phone Hicks, Ilda Forbes APN Primary Care Provider [phone] Encounter Details Date Type Department Care Team (Late st Contact Info) Description 04/11/2009 Ancillary Orders [facility] [address] [facility] [address] [place] [address] Judson Yang MD NO ADDRESS ON FILE Lump or Mass in Breast Social History Tobacco Use Types Packs/Day Years Used Date Smoking Tobacco: Never Alcohol Use Standard Drinks/Week Comments No 0 (1 standard drink = 0.6 oz pur e alcohol) Comments No Sex and Gender Information Value Date Recorded Sex Assigned at Not on file 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 Procedure Note Azeb Aranda MD - 04/16/2009 For full report, please see diagnostic mammogram of 04/11/2009. us Judson Yang MD MAMMO ORDERABLES Final Res ult documented in this encounter Visit Diagnoses Diagnosis Lump or mass in breast Lump or mass in breast documented in this encounter Care Teams Printing Technician Relationship Specialty Start Date End Date Ilda Hicks APN [address] [place] [address] PCP - General 03/29/08 documented as of this encounter
--- OUTSIDE RECORDS SUMMARY | 2024-11-19 06:48 | XMS_ITS | Encounter Summary ---
Author Organization [facility] Address [address] [place] [address] Care Team Providers Care Jewel Sawyer Name Role Phone Hicks, Ilda Forbes APN Primary Care Provider [phone] Reason for Referral * Outpatient Services (Routine) - Closed Specialty Diagnoses / Procedures Referred By Kaya beltran Referred To Contact Diagnoses Other screening mammogram Procedures MAMMO DIGITAL SCREEN UNI LEFT Jesenia Dubois MD NO ADDRESS ON FILE Referral ID Status Reason Start Date Expiration Date Visits Re quested Visits Authorized [id number] Closed 09/29/2010 09/29/2011 1 1 Encounter Details Date Type Department Care Team (Latest Contact Info) Description 09/29/[address] 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
--- OUTSIDE RECORDS SUMMARY | 2024-11-19 06:48 | XMS_ITS | Encounter Summary ---
Author Organization [facility] Address [address] [place] [address] Care Team Providers Care Form Tamper Name Role Phone Ilda Hicks APN Primary Care Provider [phone] Encounter Details Date Type Department Care Team (Latest Contact Info) Description 11/16/2004 Outpatient Historical [facility] [address] [facility] [address] [place] [address] Kvng Lyn MD NO ADDRESS ON FILE SCREENING MAMM-MAILG NEOPL NEC (Primary Dx) Social History Tobacco Use Types Packs/Day Years Used Date Smoking Tobacco: Never Assessed Comments Unknown Sex and Gender Information Value Date Recorded Sex Assigned at Not on file 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 [facility] [address] [place] [address] PCP - General 03/29/08 documented as of this encounter
--- OUTSIDE RECORDS SUMMARY | 2024-11-19 06:48 | XMS_ITS | Encounter Summary ---
Author Organization [facility] Address [address] [place] [address] Care Team Providers Care Circulation Representative Name Role Phone Ilda Hicks APN Primary Care Provider [phone] Encounter Details Date Type Department Care Team (Latest Contact Info) Description 01/19/2000 Outpatient Historical [facility] PLASTIC SURGERY GeorgiaJesu hinds MD NO ADDRESS ON FILE Other plastic surgery for unacceptable cosmetic appearance (Primary Dx) Social History Tobacco Use Types Packs/Day Years Used Date Smoking Tobacco: Never Assessed Comments Unknown Sex and Gender Information Value Date Recorded Sex Assigned at Not on file 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
--- OUTSIDE RECORDS SUMMARY | 2024-11-19 06:48 | XMS_ITS | Encounter Summary ---
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 [facility] [address] [place] [address] PCP - General 03/29/08 documented as of this encounter
--- OUTSIDE RECORDS SUMMARY | 2024-11-19 06:48 | XMS_ITS | Encounter Summary ---
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 [place], [place] [address] PCP - General 03/29/08 documented as of this encounter
--- OUTSIDE RECORDS SUMMARY | 2024-11-19 06:48 | XMS_ITS | Encounter Summary ---
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
--- OUTSIDE RECORDS SUMMARY | 2024-11-19 06:48 | XMS_ITS | Encounter Summary ---
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 [facility] 4 [place] [address] PCP - General 03/29/08 documented as of this encounter
--- OUTSIDE RECORDS SUMMARY | 2024-11-19 06:48 | XMS_ITS | Encounter Summary ---
Author Organization [facility] Address [address] [place] [address] Care Team Providers Care Instructional Facilitator Name Role Phone Hicks, Ilda Forbes APN Primary Care Provider [phone] Reason for Referral * Outpatient Services (Routine) - Closed Specialty Diagnoses / Procedures Referred By Kaya beltran Referred To Contact Radiology Diagnoses Dermatomyositis (CMS/HCC) Muscle weakness of left upper extremity Procedures MRI HUMERUS W WO CONTRAST LEFT [facility] MRI [address] [place] [address] Phone: tel: fax: [facility] MRI [address] [place] [address] Phone: tel: fax: Referral ID Status Reason Start Date Expiration Date Visits Re quested Visits Authorized [id number] Closed 09/22/2009 12/21/2009 1 1 Encounter Details Date Type Department Care Team (Latest Contact Info) Description 09/16/2009 Ancillary Orders [facility] MRI [address] [place] [address] Tariq, External Provider [address] [place] [address] Dermatomyositis (CMS/HCC); Muscle Weakness of Left Upper Extremity Social History Tobacco Use Types Packs/Day Years Used Date Smoking Tobacco: Never Alcohol Use Standard Drinks/Week Comments No 0 (1 standard drink = 0.6 oz pur e alcohol) Comments No Sex and Gender Information Value Date Recorded Sex Assigned at Not on file 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 tjb - uploaded from [employer] 09/29/2009 12:15 PM CDT Exam: MRI HUMERUS [...] appropriate in signal. susana - uploaded from [employer] us External Provider [facility] MR ORDERABLES Final Resu lt documented in this encounter Visit Diagnoses Diagnosis Dermatomyositis (CMS/HCC) Dermatomyositis Muscle weakness of left upper extremity Muscle weakness (generalized) Dermatomyositis (CMS/HCC) Dermatomyositis Muscle weakness of left upper extremity Muscle weakness (generalized) documented in this encounter Care Teams Instructional Facilitator Relationship Specialty Start Date End Date Ilad Hicks APN [facility] [address] [address] PCP - General 03/29/08 documented as of this encounter
--- OUTSIDE RECORDS SUMMARY | 2024-11-19 06:48 | XMS_ITS | Encounter Summary ---
Author Organization [facility] Address [address] [place] [address] Care Team Providers Care Integrity Assessor Name Role Phone Hicks, Ilda Forbes APN Primary Care Provider [phone] Encounter Details Date Type Department Care Team (Latest Contact Info) Description 06/08/2007 Outpatient [facility] [address] 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 Anatomic Pathology Dept [facility] [address] Patient: BULL RODRIGUEZ Accn No: [id number] Collected: 06/09/2007 10:28:00 AM SURGICAL PATHOLOGY FINAL [...] Submitted in a container of formalin labelled Jnenifer - right are six yellowish-lopez needle core biopsies ranging in size from 0.4 to 1.2 cm. The specimen is submitted entirely in A1. Gross Summary: Specimen Type: Ultrasound-guided core biopsy Laterality: Right Tumor Site: 10 o'clock Time in Formalin Between 6 and 48 Hours (Yes/No): Yes DLS/WLS SURGICAL PATHOLOGY ADDENDUM REPORT Discussion This breast cancer prognostic panel was performed at [facility] and [facility] using assisted quantitative image analysis [...] determined by the Diagnostic Immunohistochemistry Laboratory of [facility] in compliance with CLIA'88 regulations. Some of these tests rely on the use of analyte specific reagents and are subject to specific labeling requirements by the FDA. This testing was developed by the Diagnostic Immunohistochemistry Laboratory of [facility]. It has not been cleared or approved [...] of these antibodies was accomplished using the Mckittrick Biotin/Streptavidin-HRP i-VIEW DAB Visualization System. INTERFACE SYSTEM 06/09/2007 10:2 8 AM CDT Judson Yang MD PATHOLOGY/CYTOLOGY ORDERAB LES Edited INTERFACE SYSTEM Refer to clinic/hospital department * US GUIDE NEEDLE PLACEMENT (06/09/2007 8:30 AM CDT) Anatomical Region Laterality Modality Other 06/09/2007 8:30 AM CDT Narrative 06/09/2007 8:30 AM CDT Report Available in [facility] Procedure Note 03/18/2008 Report Available in [facility] us Judson Yang MD US ORDERABLES Final Resu lt * US BIOPSY BREAST RIGHT (06/09/2007 8:30 AM CDT) Anatomical Region Laterality Modality Breast Right Other 06/09/2007 8:30 AM CDT Narrative 06/09/2007 8:30 AM CDT Report Available in [facility] Procedure Note 03/18/2008 Report Available in [facility] us Judson Yang MD US ORDERABLES Final Resu lt * US BREAST UNILATERAL RIGHT (06/09/2007 8:01 AM CDT) Anatomical Region Laterality Modality Breast Right Other 06/09/2007 8:01 AM CDT Narrative 06/09/2007 8:01 AM CDT Report Available in [facility] Procedure Note 03/18/2008 Report Available in [facility] Judson Yang MD ORDERABLES Final Resu lt documented in this encounter Visit Diagnoses Diagnosis Postmenopausal bleeding Family history of malignant neoplasm of breast documented in this encounter Care Teams Integrity Assessor Relationship Specialty Start Date End Date Kurt, Ilda Forbes APN [facility] [address] [address] PCP - General 03/29/08 documented as of this encounter
--- OUTSIDE RECORDS SUMMARY | 2024-11-19 06:48 | XMS_ITS | Encounter Summary ---
Author Organization [facility] Address [address] [place] [address] Care Team Providers Care Rack Puller Name Role Phone Ilda Hicks APN Primary Care Provider [phone] Encounter Details Date Type Department Care Team (Late st Contact Info) Description 11/13/2001 Outpatient Historical [facility] [address] [facility] [address] [place] [address] Azeb Aranda MD NO ADDRESS ON FILE SCREENING MAMM-MAILG NEOPL-OTHER (Primary Dx) Social History Tobacco Use Types Packs/Day Years Used Date Smoking Tobacco: Never Assessed Comments Unknown Sex and Gender Information Value Date Recorded Sex Assigned at Not on file 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
--- OUTSIDE RECORDS SUMMARY | 2024-11-19 06:48 | XMS_ITS | Encounter Summary ---
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) Procedures MAMMO BREAST US LT Judson Yang MD NO ADDRESS ON FILE Referral ID Status Reason Start Date Expiration Date Visits Re quested Visits Authorized [id number] Closed 08/11/2009 02/07/2010 1 1 Encounter Details Date Type Department Care Team (Late st Contact Info) Description 08/11/2009 Ancillary Orders [facility] Gen Spec Surg [address] [facility] [address] [place] [address] Judson Yang MD NO ADDRESS ON FILE [...] on file 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 Procedure Note Leora Pdailla MD - 08/15/2009 Ultrasound report is included [...] breast documented in this encounter Care Teams Teacher Citizenship Relationship Specialty Start Date End Date Kurt, Ilda Forbes APN [address] [place] [address] PCP - General 03/29/08 documented as of this encounter
--- OUTSIDE RECORDS SUMMARY | 2024-11-19 06:48 | XMS_ITS | Encounter Summary ---
Author Organization [facility] Address [address] [place] [address] Care Team Providers Care Quality Improvement Consultant Name Role Phone Hicks, Ilda Forbes APN Primary Care Provider [phone] Encounter Details Date Type Department Care Team (Late st Contact Info) Description 07/18/2017 Ancillary Orders [facility] Orthopedics - [facility]opedic [facility] [address] [place] [address] [facility], External Provider [address] [place] [address] Pain Social History Tobacco Use Types Packs/Day Years Used Date Smoking Tobacco: Never Alcohol Use Standard Drinks/Week Comments No 0 (1 standard drink = 0.6 oz pur e alcohol) rare Comments No Sex and Gender Information Value Date Recorded Sex Assigned at Not on file 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 External Provider [facility] DIAGNOSTIC IMAGING ORDERAB LES Final Result * XR PRIOR STUDY (06/02/2017 4:35 PM CDT) Narrative 07/18/2017 8:57 AM CDT This exam was auto finalized to allow images to be scanned to PACS. us External Provider [facility] DIAGNOSTIC IMAGING ORDERAB LES Final Result * XR PRIOR STUDY (05/18/2017 1:10 PM CDT) Narrative 07/18/2017 8:58 AM CDT This exam was auto finalized to allow images to be scanned to PACS. us External Provider [facility] DIAGNOSTIC IMAGING ORDERAB LES Final Result * XR PRIOR STUDY (05/12/2017 9:15 AM CDT) Narrative 07/18/2017 8:58 AM CDT This exam was auto finalized to allow images to be scanned to PACS. us External Provider [facility] DIAGNOSTIC IMAGING ORDERAB LES Final Result documented in this encounter Visit Diagnoses Diagnosis Pain Generalized pain Pain Generalized pain Pain Generalized pain Pain Generalized pain Pain Generalized pain documented in this encounter Care Teams Quality Improvement Consultant Relationship Specialty Start Date End Date Ilda Hicks APN [facility] [address] [address] PCP - General 03/29/08 documented as of this encounter
--- OUTSIDE RECORDS SUMMARY | 2024-11-19 06:48 | XMS_ITS | Encounter Summary ---
Author Organization [facility] Address [address] [place] [address] Care Team Providers Care Screed Operator Name Role Phone Hicks, Ilda Forbes APN Primary Care Provider [phone] Encounter Details Date Type Department Care Team (Late st Contact Info) Description 08/19/2008 Ancillary Orders [facility] Cancer and Hematology [address] [place] [address] Jesenia Dubois MD NO ADDRESS ON FILE Screening Mammogram Social History Tobacco Use Types Packs/Day Years Used Date Smoking Tobacco: Never Alcohol Use Standard Drinks/Week Comments No 0 (1 standard drink = 0.6 oz pur e alcohol) Comments No Sex and Gender Information Value Date Recorded Sex Assigned at Not on file 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
--- OUTSIDE RECORDS SUMMARY | 2024-11-19 06:48 | XMS_ITS | Encounter Summary ---
Author Organization [facility] Address [address] [place] [address] Care Team Providers Care Pipe Stem Repairer Name Role Phone Ilda Hicks APN Primary Care Provider [phone] Encounter Details Date Type Department Care Team (Late st Contact Info) Description 10/20/1999 Outpatient Historical [facility] [place] [address] [place] [address] Azeb Aranda MD NO ADDRESS ON FILE Family history of malignant neoplasm of breast (Primary Dx); Screening mammogram for high-risk patient Social History Tobacco Use Types Packs/Day Years Used Date Smoking Tobacco: Never Assessed Comments Unknown Sex and Gender Information Value Date Recorded Sex Assigned at Not on file 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 [address] PCP - General 03/29/08 documented as of this encounter
--- OUTSIDE RECORDS SUMMARY | 2024-11-19 06:48 | XMS_ITS | Encounter Summary ---
Author Organization [facility] Address [address] [place] [address] Care Team Providers Care Testing And Regulating Chief Name Role Phone Ilda Hicks APN Primary Care Provider [phone] Encounter Details Date Type Department Care Team (Late st Contact Info) Description 06/03/2008 Ancillary Orders [facility] Cancer and Hematology [address] [place] [address] [address] [place] [address] Jesenia Dubois MD NO ADDRESS ON FILE Screening Mammogram Social History Tobacco Use Types Packs/Day Years Used Date Smoking Tobacco: Never Alcohol Use Standard Drinks/Week Comments No 0 (1 standard drink = 0.6 oz pur e alcohol) Comments Unknown Sex and Gender Information Value Date Recorded Sex Assigned at Not on file 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
--- OUTSIDE RECORDS SUMMARY | 2024-11-19 06:48 | XMS_ITS | Encounter Summary ---
Author Organization [facility] Address [address] [place] [address] Care Team Providers Care General Technician Name Role Phone Ilda Hicks APN Primary Care Provider [phone] Encounter Details Date Type Department Care Team ([facility] st Contact Info) Description 10/21/2005 Outpatient Historical [facility] Dermatology- 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
--- OUTSIDE RECORDS SUMMARY | 2024-11-19 06:48 | XMS_ITS | Encounter Summary ---
Author Organization [facility] Address [address] [place] [address] Care Team Providers Care Hay Chopper Name Role Phone Ilda Hicks APN Primary Care Provider [phone] Encounter Details Date Type Department Care Team (Late st Contact Info) Description 12/14/2005 Outpatient Historical [facility] Dermatology- 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 [facility] [address] [place] [address] PCP - General 03/29/08 documented as of this encounter
--- OUTSIDE RECORDS SUMMARY | 2024-11-19 06:48 | XMS_ITS | Encounter Summary ---
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) Procedures MAMMO DIGITAL DIAG UNI LEFT Judson Yang MD NO ADDRESS ON FILE Referral ID Status Reason Start Date Expiration Date Visits Re quested Visits Authorized [id number] Closed 08/11/2009 02/07/2010 1 1 Encounter Details Date Type Department Care Team (Late st Contact Info) Description 08/11/2009 Ancillary Orders [facility] Gen Spec Surg [facility] [address] [place] [address] Judson Yang MD NO ADDRESS ON FILE [...] on file 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 Ultrasound of the left breast [...] analyzed by the Computer Aided DetectionSystem (CAD), ClassWallet ImageChecker, Version 8.3. Ultrasound of the left [...] breast documented in this encounter Care Teams Load Manager Relationship Specialty Start Date End Date Ilda Hicks APN [address] [place] [address] PCP - General 03/29/08 documented as of this encounter
--- OUTSIDE RECORDS SUMMARY | 2024-11-19 06:48 | XMS_ITS | Encounter Summary ---
Author Organization [facility] Address [address] [place] [address] Care Team Providers Care Test Kitchen Home Economist Name Role Phone Hicks, Ilda Forbes APN Primary Care Provider [phone] Reason for Referral * Outpatient Services (Routine) - Closed Specialty Diagnoses / Procedures Referred By Kaya beltran Referred To Contact Diagnoses Other screening mammogram Procedures MAMMO DIGITAL SCREEN UNI LEFT Jesenia Dubois MD NO ADDRESS ON FILE [employer] Pre-Registration [place] CALL TO MAKE APPOINTMENT ONLY [address] [facility] [place] [address] Phone: tel: fax: Referral ID Status Reason Start Date Expiration Date V isits Requested Visits Authorized [id number] Closed [facility]ULE ([facility]) 10/12/2011 10/11/2012 1 1 Encounter Details Date Type Department Care Team (Latest Contact Info) Description 10/12/2011 Ancillary Orders [facility] Pre-Registration [place] CALL TO MAKE APPOINTMENT ONLY [address] [place] [address] Jesenia Dubois MD NO ADDRESS ON FILE Other screening mammogram Social History Tobacco Use Types Packs/Day Years Used Date Smoking Tobacco: Never Alcohol Use Standard Drinks/Week Comments No 0 (1 standard drink = 0.6 oz pur e alcohol) rare Comments No Sex and Gender Information Value Date Recorded Sex Assigned at Not on file 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 [address] PCP - General 03/29/08 documented as of this encounter
--- OUTSIDE RECORDS SUMMARY | 2024-11-19 06:48 | XMS_ITS | Encounter Summary ---
Author Organization [facility] Address [address] [place] [address] Care Team Providers Care Cigar Packer And Picker Name Role Phone Ilda Hicks APN Primary Care Provider [phone] Encounter Details Date Type Department Care Team (Late st Contact Info) Description 04/10/2009 Ancillary Orders [facility] [address] [place] [address] Judson Yang MD NO ADDRESS ON FILE Social History Tobacco Use Types Packs/Day Years Used Date Smoking Tobacco: Never Alcohol Use Standard Drinks/Week Comments No 0 (1 standard drink = 0.6 oz pur e alcohol) Comments No Sex and Gender Information Value Date Recorded Sex Assigned at Not on file 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 [facility] [address] [place] [address] PCP - General 03/29/08 documented as of this encounter
--- OUTSIDE RECORDS SUMMARY | 2024-11-19 06:48 | XMS_ITS | Encounter Summary ---
Author Organization [facility] Address [address] [place] [address] Care Team Providers Care Processor Helper Name Role Phone Ilda Hicks APN Primary Care Provider [phone] Encounter Details Date Type Department Care Team (Late st Contact Info) Description 06/15/2007 Outpatient Historical [facility] [address] [facility] [address] [place] [address] Social History Tobacco Use Types Packs/Day Years Used Date Smoking Tobacco: Never Assessed Comments Unknown Sex and Gender Information Value Date Recorded Sex Assigned at Not on file Legal Sex Female 2:47 AM MANAGER APPOINTMENT Gender Identity Not on file Sexual Orientation Not on file documented as of this encounter Plan of Treatment Not on file documented as of this encounter Visit Diagnoses Not on filedocumented in this encounter Care Teams Processor Helper Relationship Specialty Start Date End Date Ilda Hicks APN [address] [facility] [address] [place] [address] PCP - General 03/29/08 documented as of this encounter
--- OUTSIDE RECORDS SUMMARY | 2024-11-19 06:48 | XMS_ITS | Encounter Summary ---
Author Organization [employer] [facility] Address [address] [facility] [place] [address] Care Team Providers Care Anatomy And Physiology Instructor Name Role Phone Hicks, Ilda Forbes APN Primary Care Provider [phone] Reason for Referral * Outpatient Services (Routine) - Closed Specialty Diagnoses / Procedures Referred By Kaya beltran Referred To Contact Diagnoses Other screening mammogram Procedures MAMMO DIGITAL SCREEN UNI LEFT Jesenia Dubois MD NO ADDRESS ON FILE [employer] Pre-Registration [place] CALL TO MAKE APPOINTMENT ONLY [address] [place] [facility] [place] [address] Phone: tel: fax: Referral ID Status Reason Start Date Expiration Date Visits Re quested Visits Authorized [id number] Closed 05/09/2013 06/09/2014 1 1 Encounter Details Date Type Department Care Team (Latest Contact Info) Description 05/09/2013 Ancillary Orders [facility] Pre-Registration [place] CALL TO MAKE APPOINTMENT ONLY [address] [place] [address] Jesenia Dubois MD NO ADDRESS ON FILE Other screening mammogram (Primary Dx) Social History Tobacco Use Types Packs/Day Years Used Date Smoking Tobacco: Never Alcohol Use Standard Drinks/Week Comments No 0 (1 standard drink = 0.6 oz pur e alcohol) rare Comments No Sex and Gender Information Value Date Recorded Sex Assigned at Not on file 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
--- OUTSIDE RECORDS SUMMARY | 2024-11-19 06:48 | XMS_ITS | Encounter Summary ---
Author Organization [facility] Address [address] [place] [address] Care Team Providers Care Hydraulic Specialist Name Role Phone Ilda Hicks APN Primary Care Provider [phone] Encounter Details Date Type Department Care Team (Late st Contact Info) Description 09/17/2003 Outpatient Historical [facility] [address] [facility] [address] [place] [address] Azeb Aranda MD NO ADDRESS ON FILE SYMPTOMS IN BREAST NEC (Primary Dx) Social History Tobacco Use Types Packs/Day Years Used Date Smoking Tobacco: Never Assessed Comments Unknown Sex and Gender Information Value Date Recorded Sex Assigned at Not on file 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 [facility] [address] [place] [address] PCP - General 03/29/08 documented as of this encounter
--- OUTSIDE RECORDS SUMMARY | 2024-11-19 06:48 | XMS_ITS | Encounter Summary ---
Author Organization [facility] Address [address] [place] [address] Care Team Providers Care Certified Cytotechnologist Name Role Phone Ilda Hicks APN Primary Care Provider [phone] Encounter Details Date Type Department Care Team (Latest Contact Info) Description 11/07/2000 Outpatient Historical [facility] [address] [facility] [address] [place] [address] Kvng Lyn MD NO ADDRESS ON FILE Other screening mammogram (Primary Dx) Social History Tobacco Use Types Packs/Day Years Used Date Smoking Tobacco: Never Assessed Comments Unknown Sex and Gender Information Value Date Recorded Sex Assigned at Not on file 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
--- OUTSIDE RECORDS SUMMARY | 2024-11-19 06:48 | XMS_ITS | Encounter Summary ---
Author Organization [facility] Address [address] [place] [address] Care Team Providers Care Sagger Soak Name Role Phone Hicks, Ilda Forbes APN Primary Care Provider [phone] Encounter Details Date Type Department Care Team (Late st Contact Info) Description 06/27/2007 Outpatient Historical [facility] [address] [place] [address] Judson Yang MD NO ADDRESS ON FILE Social History Tobacco Use Types Packs/Day Years Used Date Smoking Tobacco: Never Assessed Comments Unknown Sex and Gender Information Value Date Recorded Sex Assigned at Not on file 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 Gender Identity Not on file Sexual Orientation [...] CDT) RBC 4.55 4.20 - 5.40 Mil/ul [facility] LYMPHOCYTES 22.8(L) 24.0 - 44.0 % [facility] MCHC 32.6 30.0 - 35.0 g/dL [facility] LYMPHOCYTE ABSOLUTE 1.8 1.2 - 4.0 K/ul [facility] MCV 84.4 84.0 - 103.0 Fl [facility] MPV 11.2 8.9 - 12.8 Fl [facility] BASOPHILS ABSOLUTE 0.1 0.0 - 0.2 K/ul [facility] BASOPHILS 0.6 0.0 - 1.0 % [facility] HEMOGLOBIN 12.5 12.0 - 16.0 g/dL [facility] RDW 14.5 11.0 - 14.5 % [facility] MONOCYTE ABSOLUTE 0.6 0.1 - 0.6 K/ul [facility] MONOCYTES 8.1 2.0 - 10.0 % [facility] WBC 8.0 4.8 - 10.8 K/ul [facility] MCH 27.5 27.0 - 34.0 pg [facility] NEUTROPHIL ABSOLUTE 5.3 2.0 - 8.0 K/ul [facility] NEUTROPHILS 66.6 42.2 - 75.2 % [facility] HEMATOCRIT 38.4 36.0 - 46.0 % [facility] EOSINOPHILS 1.9 0.0 - 7.0 % [facility] PLATELETS 380 140 - 440 K/ul [facility] EOSINOPHIL ABSOLUTE 0.2 0.0 - 0.7 K/ul [facility] Blood specimen (specimen) 06/27/2007 3:35 PM CDT 06/27/2007 4:04 PM CDT us Judson Yang MD HEMATOLOGY ORDERABLES Marilin flores Result [facility] CLIA# [id number] [address] [place] [address] * COMPREHENSIVE METABOLIC PANEL (06/27/2007 3:35 PM CDT) ALBUMIN 4.2 3.5 - 5.0 g/dL [facility] POTASSIUM 3.8 3.5 - 5.0 mEq/L [facility] GLOBULIN (CALC) 3.4 2.4 - 3.9 g/dL [facility] CREATININE 0.8 0.7 - 1.2 mg/dL [facility] CALCIUM 9.6 8.4 - 10.5 mg/dL [facility] OSMOLALITY, CALCULATED 284 275 - 295 mOsm/Kg [facility] ALT 15 4 - 36 IU/L [facility] GLUCOSE 87 70 - 110 mg/dL [facility] CHLORIDE 105 95 - 110 mEq/L [facility] ALBUMIN/GLOBULIN RATIO 1.2 1.0 - 2.3 [facility] ALKALINE PHOSPHATASE 79 25 - 100 U/L [facility] SODIUM 138 136 - 145 mEq/L [facility] BILIRUBIN TOTAL 0.3 0.3 - 1.2 mg/dL [facility] TOTAL PROTEIN 7.6 6.3 - 8.2 g/dL [facility] BUN 15 7 - 17 mg/dL [facility] AST 19 8 - 33 U/L [facility] CO2 25 22 - 32 mmol/l [facility] ANION GAP 12 9 - 20 mEq/L [facility] Blood specimen (specimen) 06/27/2007 3:35 PM CDT 06/27/2007 4:04 PM CDT us Judson Yang MD CHEMISTRY ORDERABLES Final Result [facility] CLIA# [id number] [address] [place] [address] documented in this encounter Visit Diagnoses Not on filedocumented in this encounter Care Teams Sagger Soak Relationship Specialty Start Date End Date Kurt, Ilda Forbes APN [facility] [address] [address] PCP - General 03/29/08 documented as of this encounter
--- OUTSIDE RECORDS SUMMARY | 2024-11-19 06:48 | XMS_ITS ---
Author Organization [facility] Address [address] [place] [address] Care Team Providers Care Pc Analyst Name Role Phone Ilda Hicks CARMINE Primary Care Provider [phone] Active Problems Problem Noted Date Diagnosed Date [...]
--- OUTSIDE RECORDS SUMMARY | 2024-11-19 06:48 | XMS_ITS | Clinical Summary ---
Author Organization [facility] Address [address] 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 Gender Identity Not on file Sexual Orientation Not on file Occupation Industry Job Start Date Job End Date Not on file Not on file Not on file Not on file Last Filed Vital Signs Vital Sign Reading Time Taken Comments Blood Pressure 148/86 04/18/2018 3:57 PM PSYCH ASSISTANT Pulse 84 04/18/2018 3:57 PM PSYCH ASSISTANT Temperature 36 C (96.8 F) 09/13/2017 5:00 PM CDT Respiratory Rate 12 09/13/2017 4:40 PM CDT Oxygen Saturation 95% 09/13/2017 5:30 PM CDT Inhaled Oxygen Concentration - - Weight 78.5 kg (173 lb) 04/18/2018 3:57 PM PSYCH ASSISTANT Height 154.9 cm (5' 1 ) 04/18/2018 3:57 PM PSYCH ASSISTANT Body Mass Index 32.69 04/18/2018 3:57 PM PSYCH ASSISTANT Plan of Treatment Health Maintenance Due Date [...] series) 2025 Medical Devices Implanted Type Area Appraiser Personal Property Device Identifier Shelf Expiration Date Model / Serial / Lot Log [id number] - Mesh Ethicon Hernia - 1 - Mesh Proceed 3dks7iy [id number] Implanted:Qty: 1 on 05/15/2009 at [facility] Mesh N/A: Abdomen [employer]- [employer] 09/14/2010 PCDG1 / / [id number] Plate Dvr Nrw Loc Rt 1318-11-050 - [id number] Implanted:Qty: 1 on 09/13/2017 by Chet Russell MD at [facility] Plate Right: Wrist VIC BIOMET [id number] / / Screw Dvr Loc 2.7x22mm 1312-27-122 - [id number] Implanted:Qty: 1 on 09/13/2017 by Chet Russell MD at [facility] Screw Right: Wrist VIC [employer]ET 1312-27-122 / / [id number] Screw Dvr Loc 2.7x22mm 131--122 - [id number] Implanted:Qty: 1 on 09/13/2017 by Chet Russell MD at [facility] Screw Right: Wrist VIC [employer]ET 1312-27-122 / / [id number] Screw Dvr Loc 2.7x20mm 1312-27-120 - [id number] Implanted:Qty: 1 on 09/13/2017 by Chet Russell MD at [facility] Screw Right: Wrist VIC [employer]ET 1312-27-120 / / [id number] Screw Dvr Loc 2.7x20mm 1312-27-120 - [id number] Implanted:Qty: 1 on 09/13/2017 by Chet Russell MD at [facility] Screw Right: Wrist [employer]IC [employer]ET 1312-27-120 / / [id number] Screw Dvr Loc 2.7x14mm 131--114 - [id number] Implanted:Qty: 1 on 09/13/2017 by Chet Russell MD at [facility] Screw Right: Wrist VIC BIOMET 1312-27-114 / / [id number] Allgrft Vivigen Matrix 5ml Bl-1600-002 - [id number] Implanted:Qty: 1 on 09/13/2017 by Chet Russell MD at [facility] Tissue Right: Wrist LIF[employer]ET 01/12/2018 BL-1600-002 / / [id number] Screw 2.7x12 [id number] Implanted:Qty: 1 on 09/13/2017 by Chet Russell MD at [facility] Right: Wrist 09/13/2018 BIOMET - [id number] / / [id number] Screw 2.7x12 [id number] Implanted:Qty: 1 on 09/13/2017 by Chet Russell MD at [facility] Right: Wrist 09/13/2018 BIOMET - [id number] / / [id number] 2.7x16 Screw [id number] Implanted:Qty: 1 on 09/13/2017 by Chet Russell MD at [facility] Right: Wrist 09/13/2018 BIOMET - SCREW / / [id number] Explanted Type Area Appraiser Personal Property Device Identifier Shelf Expiration Date Model / Serial / Lot Wire K Ss 1.6mm [id number] - [id number] Explanted:Qty: 1 on 09/13/2017 at [facility] Wire Right: Hand VIC BIOMET [id number] / / [id number] Wire K Ss 1.6mm [id number] - [id number] Explanted:Qty: 1 on 09/13/2017 at [facility] Wire Right: Hand VIC BIOMET [id number] / / [id number] Wire K Ss 1.6mm [id number] - [id number] Explanted:Qty: 1 on 09/13/2017 at [facility] Wire Right: Hand VIC BIOMET [id number] / / [id number] Locking Smooth Peg 202, 18 [id number] Implanted:2017 by Chet Russell MD (Quantity not on file) Explanted:Qty: 1 on 09/13/2017 at [facility] Right: Wrist 08/14/2018 BIOMET - [id number] / / [id number] Locking Smooth Peg 202, 18 [id number] Implanted:2017 by Chet Russell MD (Quantity not on file) Explanted:Qty: 1 on 09/13/2017 at [facility] Right: Wrist 08/14/2018 BIOMET - [id number] / / [id number] Procedures Procedure Name Priority Date/Time Associated Diagnosis Comments MAMMO SCRN UNI LEFT W OR WO CAD Routine 12/23/2014 11:30 AM PSYCH ASSISTANT Visit for screening mammogram from Last 3 Months or Most Recently Relevant to Health Maintenance Results * MAMMO DIGITAL SCREEN UNI LEFT (12/23/2014 11:30 AM PSYCH ASSISTANT) Anatomical Region Laterality Modality Breast Left Mammography Narrative 12/24/2014 1:37 PM PSYCH ASSISTANT Left Mammogram Reason for Exam: Screening Comparison: [...] Maintenance Insurance [address] [place] [address] RX [facility] Medicare Part D RX INFO[employer]OSSING Medicaid MEDICARE PART A AND B MEDICAID [place] Advance Directives For more information, please contact: [phone] * Full Code (Latest Code Status on [...] 10:13 AM 05/15/2009 10:44 AM Care Teams Registration Officer Relationship Specialty Start Date End Date Ilda Hicks APN [address] [address] PCP - General 03/29/08
--- OUTSIDE RECORDS SUMMARY | 2024-11-19 06:48 | XMS_ITS | Encounter Summary ---
Author Organization [facility] Address [address] [place] [address] Care Team Providers Care Green Pipefitter Name Role Phone Hicks, Ilda Forbes APN Primary Care Provider [phone] Encounter Details Date Type Department Care Team (Late st Contact Info) Description 04/10/2009 Ancillary Orders [facility] [address] [facility] [address] [place] [address] Judson Yang MD NO ADDRESS ON FILE Lump or Mass in Breast Social History Tobacco Use Types Packs/Day Years Used Date Smoking Tobacco: Never Alcohol Use Standard Drinks/Week Comments No 0 (1 standard drink = 0.6 oz pur e alcohol) Comments No Sex and Gender Information Value Date Recorded Sex Assigned at Not on file Legal Sex Female 2:47 AM DEPUTY MANAGER Gender Identity Not on file Sexual Orientation Not on file documented as of this encounter Plan of Treatment Not on file documented as of this encounter Results * MAMMO UNILATERAL DIAG RIGHT (04/11/2009 10:40 AM DEPUTY MANAGER) Anatomical Region Laterality Modality Breast Right Mammography Impressions 04/11/2009 3:04 PM DEPUTY MANAGER : Right breast MRI is recommended to evaluate the findings on recent PET/CT scan. If that exam is not performed I would recommend a six-month follow-up ultrasound. Narrative 04/11/2009 3:04 PM DEPUTY MANAGER RIGHT DIAGNOSTIC MAMMOGRAM: The patient is status [...] breast documented in this encounter Care Teams Green Pipefitter Relationship Specialty Start Date End Date Kurt, Ilda Forbes APN [address] [place] [address] PCP - General 03/29/08 documented as of this encounter
--- OUTSIDE RECORDS SUMMARY | 2024-11-19 06:48 | XMS_ITS | Encounter Summary ---
Author Organization [facility] Address [address] [place] [address] Care Team Providers Care Manager Sales Support Name Role Phone Hicks, Ilda Forbes CARMINE Primary Care Provider [phone] Encounter Details Date Type Department Care Team (Late st Contact Info) Description 06/14/2007 Outpatient Historical [facility] [address] [place] [address] Judson Yang MD NO ADDRESS ON FILE Social History Tobacco Use Types Packs/Day Years Used Date Smoking Tobacco: Never Assessed Comments Unknown Sex and Gender Information Value Date Recorded Sex Assigned at Not on file 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 [place] is referred to that document. Dictated By: Nae Lowe M.D. Electronically Signed By: Nae Lowe M.D. Date Signed: 06/18/07 Procedure Note Nae Lowe - 06/18/2007 ATTENTION: The findings of this examination are reported in theirentirety in this patient's records on the [employer] system. [place] is referred to that document. Dictated By: Nae Lowe M.D. Electronically Signed By: Nae Lowe M.D. Date Signed: 06/18/07 us Judson Yang MD MR ORDERABLES Final Resu lt documented in this encounter Visit Diagnoses Not on filedocumented in this encounter Care Teams Manager Sales Support Relationship Specialty Start Date End Date Kurt, Ilda Forbes APN [address] [place] [address] PCP - General 03/29/08 documented as of this encounter
--- OUTSIDE RECORDS SUMMARY | 2024-11-19 06:48 | XMS_ITS ---
Author Organization [facility] Address [address] Wilder: Epic Prelude ADT [place] [address] Care Team Providers Care Assistant Name Role Phone Ilda Hicks APN Primary Care Provider [phone] Active Problems Problem Noted Date Diagnosed Date [...]
--- OUTSIDE RECORDS SUMMARY | 2024-11-19 06:48 | XMS_ITS | Encounter Summary ---
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 Gender Identity Not on file Sexual [...] (ABNORMAL) POC GLUCOSE (07/07/2007 7:08 AM CDT) [facility] Signature GLUCOSE POC 111(H) 60 - 100 mg/dL [facility] Venous blood specimen (specimen) 07/07/2007 7:08 AM CDT 07/08/2007 1:11 AM CDT us Jesu Ho MD POINT OF CARE TESTING Final Re sult [facility] CLIA# [id number] [address] [place] [address] * (ABNORMAL) POC GLUCOSE (07/06/2007 8:07 PM CDT) GLUCOSE POC 116(H) 60 - 100 mg/dL [facility] Venous blood specimen (specimen) 07/06/2007 8:07 PM CDT 07/07/2007 2:42 AM CDT Jesu Ho MD POINT OF CARE TESTING Final Re sult Performing Organization Address [facility] Co de Phone Number [facility] CLIA# [id number] [address] [place] [address] * (ABNORMAL) POC GLUCOSE (07/06/2007 6:11 PM CDT) GLUCOSE POC 105(H) 60 - 100 mg/dL [facility] Venous blood specimen (specimen) 07/06/2007 6:11 PM CDT 07/07/2007 2:42 AM CDT us Jesu Ho MD POINT OF CARE TESTING Final Re sult Performing Organization Address [facility] Co de Phone Number [facility] CLIA# [id number] [address] [place] [address] * (ABNORMAL) POC GLUCOSE (07/06/2007 1:37 PM CDT) GLUCOSE POC 128(H) 60 - 100 mg/dL [facility] Venous blood specimen (specimen) 07/06/2007 1:37 PM CDT 07/07/2007 2:42 AM CDT us Jesu Ho MD POINT OF CARE TESTING Final Re sult Performing Organization Address [facility] Co de Phone Number [facility] CLIA# [id number] [address] [place] [address] * (ABNORMAL) POC GLUCOSE (07/06/2007 5:40 AM CDT) GLUCOSE POC 114(H) 60 - 100 mg/dL [facility] Venous blood specimen (specimen) 07/06/2007 5:40 AM CDT 07/07/2007 2:42 AM CDT Jesu Ho MD POINT OF CARE TESTING Final Re sult Performing Organization Address [facility] Co de Phone Number [facility] CLIA# [id number] [address] [place] [address] * (ABNORMAL) POC GLUCOSE (07/05/2007 10:13 PM CDT) GLUCOSE POC 146(H) 60 - 100 mg/dL [facility] Venous blood specimen (specimen) 07/05/2007 10:13 PM CDT 07/06/2007 3:14 AM CDT Jesu Ho MD POINT OF CARE TESTING Final Re sult Performing Organization Address [facility] de Phone Number [facility] CLIA# [id number] [address] [place] [address] * (ABNORMAL) POC GLUCOSE (07/05/2007 4:21 PM CDT) GLUCOSE POC 132(H) 60 - 100 mg/dL [facility] Venous blood specimen (specimen) 07/05/2007 4:21 PM CDT 07/06/2007 3:14 AM CDT Jesu Ho MD POINT OF CARE TESTING Final Re sult Performing Organization Address [facility] de Phone Number [facility] CLIA# [id number] [address] [place] [address] * (ABNORMAL) POC GLUCOSE (07/05/2007 12:31 PM CDT) GLUCOSE POC 145(H) 60 - 100 mg/dL [facility] Venous blood specimen (specimen) 07/05/2007 12:31 PM CDT 07/06/2007 3:17 AM CDT us Jesu Ho MD POINT OF CARE TESTING Final Re sult Performing Organization Address [facility] Co de Phone Number [facility] CLIA# [id number] [address] [place] [address] * (ABNORMAL) POC GLUCOSE (07/05/2007 7:52 AM CDT) GLUCOSE POC 118(H) 60 - 100 mg/dL [facility] Venous blood specimen (specimen) 07/05/2007 7:52 AM CDT 07/06/2007 3:17 AM CDT us Jesu Ho MD POINT OF CARE TESTING Final Re sult Performing Organization Address [facility] de Phone Number [facility] CLIA# [id number] [address] [place] [address] * (ABNORMAL) POC GLUCOSE (07/04/2007 8:25 PM CDT) COMMENT POC Follow Protocol [facility] GLUCOSE POC 132(H) 60 - 100 mg/dL [facility] Venous blood specimen (specimen) 07/04/2007 8:25 PM CDT 07/05/2007 5:13 AM CDT us Jesu Ho MD POINT OF CARE TESTING Final Re sult Performing Organization Address [facility] de Phone Number [facility] CLIA# [id number] [address] [place] [address] * (ABNORMAL) POC GLUCOSE (07/04/2007 6:11 PM CDT) COMMENT POC Follow Protocol [facility] GLUCOSE POC 115(H) 60 - 100 mg/dL [facility] Venous blood specimen (specimen) 07/04/2007 6:11 PM CDT 07/05/2007 5:13 AM CDT us Jesu Ho MD POINT OF CARE TESTING Final Re sult Performing Organization Address [facility] de Phone Number [facility] CLIA# [id number] [address] [place], [place] [address] * (ABNORMAL) POC GLUCOSE (07/04/2007 12:09 PM CDT) GLUCOSE POC 122(H) 60 - 100 mg/dL [facility] Venous blood specimen (specimen) 07/04/2007 12:09 PM CDT 07/05/2007 5:09 AM CDT us Jesu Ho MD POINT OF CARE TESTING Final Re sult Performing Organization Address [facility] de Phone Number [facility] CLIA# [id number] [address] [place] [address] * PTT (07/04/2007 6:08 AM CDT) PTT 34.0 22.5 - 36.5 Secs [facility] Comment: Therapeutic Range: Hi-level PE/DVT [...] ORDERABLES Final Re sult Performing Organization Address [facility] de Phone Number [facility] CLIA# [id number] [address] [place] [address] * (ABNORMAL) CBC WITH DIFFERENTIAL (07/04/2007 6:08 AM CDT) BASOPHILS 0.1 0.0 - 1.0 % [facility] MPV 10.6 8.9 - 12.8 Fl [facility] BASOPHILS ABSOLUTE 0.0 0.0 - 0.2 K/ul [facility] HEMOGLOBIN 8.7(L) 12.0 - 16.0 g/dL [facility] MONOCYTES 6.9 2.0 - 10.0 % [facility] RDW 14.9(H) 11.0 - 14.5 % [facility] MONOCYTE ABSOLUTE 0.8(H) 0.1 - 0.6 K/ul [facility] WBC 11.4(H) 4.8 - 10.8 K/ul [facility] NEUTROPHILS 81.6(H) 42.2 - 75.2 % [facility] MCH 27.2 27.0 - 34.0 pg [facility] NEUTROPHIL ABSOLUTE 9.3(H) 2.0 - 8.0 K/ul [facility] HEMATOCRIT 27.6(L) 36.0 - 46.0 % [facility] PLATELETS 335 140 - 440 K/ul [facility] EOSINOPHIL ABSOLUTE 0.0 0.0 - 0.7 K/ul [facility] EOSINOPHILS 0.1 0.0 - 7.0 % [facility] PERIPHERAL BLOOD SMEAR REVIEW Automated Diff [facility] RBC 3.20(L) 4.20 - 5.40 Mil/ul [facility] MCHC 31.5 30.0 - 35.0 g/dL [facility] LYMPHOCYTE ABSOLUTE 1.3 1.2 - 4.0 K/ul [facility] LYMPHOCYTES 11.3(L) 24.0 - 44.0 % [facility] MCV 86.3 84.0 - 103.0 Fl [facility] Blood specimen (specimen) 07/04/2007 6:08 AM CDT 07/04/2007 6:35 AM CDT us Jesu Ho MD HEMATOLOGY ORDERABLES Final Re sult Performing Organization Address [facility] de Phone Number [facility] CLIA# [id number] [address] [place] [address] * (ABNORMAL) POC GLUCOSE (07/04/2007 5:18 AM CDT) GLUCOSE POC 161(H) 60 - 100 mg/dL [facility] Venous blood specimen (specimen) 07/04/2007 5:18 AM CDT 07/05/2007 5:09 AM CDT us Jesu Ho MD POINT OF CARE TESTING Final Re sult Performing Organization Address [facility] de Phone Number [facility] CLIA# [id number] [address] [place] [address] * (ABNORMAL) POC GLUCOSE (07/03/2007 11:57 PM CDT) GLUCOSE POC 201(H) 60 - 100 mg/dL [facility] Venous blood specimen (specimen) 07/03/2007 11:57 PM CDT 07/04/2007 2:03 AM CDT us Jesu Ho MD POINT OF CARE TESTING Final Re sult Performing Organization Address [facility] de Phone Number [facility] CLIA# [id number] [address] [place] [address] * (ABNORMAL) POC GLUCOSE (07/03/2007 5:16 PM CDT) GLUCOSE POC 121(H) 60 - 100 mg/dL [facility] Venous blood specimen (specimen) 07/03/2007 5:16 PM CDT 07/04/2007 1:23 AM CDT us Jesu Ho MD POINT OF CARE TESTING Final Re sult Performing Organization Address [facility] Co de Phone Number [facility] CLIA# [id number] [address] [place] [address] * (ABNORMAL) POC GLUCOSE (07/03/2007 8:06 AM CDT) GLUCOSE POC 106(H) 60 - 100 mg/dL [facility] Venous blood specimen (specimen) 07/03/2007 8:06 AM CDT 07/04/2007 7:48 AM CDT us Jesu Ho MD POINT OF CARE TESTING Final Re sult Performing Organization Address [facility] de Phone Number [facility] CLIA# [id number] [address] [place] [address] documented in this encounter Visit Diagnoses Diagnosis Morbid obesity (CMS/HCC) Morbid obesity Malignant neoplasm of breast (female), unspecified site Personal history of tobacco use, presenting hazards to health documented in this encounter Care Teams Rehabilitation Services Manager Relationship Specialty Start Date End Date Ilda Hicks APN [address] [address] PCP - General 03/29/08 documented as of this encounter
--- OUTSIDE RECORDS SUMMARY | 2024-11-19 06:48 | XMS_ITS | Encounter Summary ---
Author Organization [facility] Address [address] [place] [address] Care Team Providers Care Right Of Way Supervisor Name Role Phone Ilda Hicks APN Primary Care Provider [phone] Encounter Details Date Type Department Care Team (Latest Contact Info) Description 11/16/2004 Outpatient [facility] [address] [place] [address] [facility], [id number] SCREENING MAMM-MAILG NEOPL NEC (Primary Dx) Social History Tobacco Use Types Packs/Day Years Used Date Smoking Tobacco: Never Assessed Comments Unknown Sex and Gender Information Value Date Recorded Sex Assigned at Not on file 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 [address] PCP - General 03/29/08 documented as of this encounter
--- OUTSIDE RECORDS SUMMARY | 2024-11-19 06:48 | XMS_ITS | Clinical Summary ---
Author Organization [facility] Address [address] Wilder: Epic Prelude ADT [place] [address] Care Team Providers Care Technician'S Helper Name Role Phone Hicks, Ilda Forbes APN Primary Care Provider [phone] Allergies Active Allergy Reactions Criticality Noted Date [...] 7 days. 8 Capsule 12/24/2022 2:40 PM REFINER OPERATOR 3 Active docusate sodium (Colace) 100 mg capsule Take 1 Capsule (100 mg) by mouth 2 times daily. 60 Capsule 12/24/2022 2:40 PM REFINER OPERATOR 3 Active famotidine (PEPCID) 20 mg tablet Take 1 Tablet (20 mg) by mouth 2 times daily. 80 Tablet 12/24/2022 2:40 PM REFINER OPERATOR 3 Active tiZANidine (ZANAFLEX) 4 mg Tablet Take 1 Tablet (4 mg) by mouth every 6 hours as needed for Spasm. 30 Tablet 12/24/2022 2:40 PM REFINER OPERATOR 3 Active naloxone (NARCAN) 4 mg/spray [place], Non-Aerosol EMERGENCY USE ONLY: Administer 1 spray (4 mg) in one nostril one time. May repeat in alternating nostrils every 2-3 min until responsive or EMS arrives. 2 Each 3 12/24/2022 2:40 PM REFINER OPERATOR 3 Active Active Problems Problem Noted Date [...] on file Legal Sex Female 1:35 PM REFINER OPERATOR Gender Identity Not on file Sexual Orientation Not on file Last Filed Vital Signs Vital Sign Reading Time Taken Comments Blood Pressure 142/82 02/01/2024 10:58 AM REFINER OPERATOR Pulse 71 01/19/2023 9:52 AM REFINER OPERATOR Temperature 36.2 C (97.2 F) 12/24/2022 12:12 PM REFINER OPERATOR Respiratory Rate 16 12/24/2022 12:12 PM REFINER OPERATOR Oxygen Saturation 98% 12/24/2022 12:12 PM REFINER OPERATOR Inhaled Oxygen Concentration - - Weight 77.2 kg (170 lb 3.2 oz) 02/01/2024 10:58 AM REFINER OPERATOR Height 149.9 cm (4' 11 ) 02/01/2024 10:58 AM REFINER OPERATOR Body Mass Index 34.38 02/01/2024 10:58 AM REFINER OPERATOR Plan of Treatment Health Maintenance Due Date [...] series) 2025 Medical Devices Implanted Type Area Home Agent Device Identifier Shelf Expiration Date Model / Serial / Lot Comp Fem Attune Poro Cr Sz 4 Rt Cmntlss 1504-01-204 - [id number] Implanted:Qty: 1 on 12/23/2022 by Thomas Franco MD at [facility] Knee Right: Knee [employer] [id number] 07/15/2031 [id number] / / [id number] - Mesh Ethicon Hernia - 1 - Mesh Proceed [id number] Implanted:Qty: 1 on 05/15/2009 Mesh N/A: Abdomen [employer]- [employer] 09/14/2010 PCDG1 / / [id number] Plate Dvr Nrw Loc Rt 1318-11-050 - [id number] Implanted:Qty: 1 on 09/13/2017 by Chet Russell MD Plate Right: Wrist VIC BIOMET [id number] / / Screw Dvr Loc 2.7x14mm 1312-27-114 - [id number] Implanted:Qty: 1 on 09/13/2017 by Chet Russell MD Screw Right: Wrist [employer] 1312-27-114 / / [id number] Screw Dvr Loc 2.7x20mm 131-120 - [id number] Implanted:Qty: 1 on 09/13/2017 by Chet Russell MD Screw Right: Wrist [employer] 1312-27-120 / / [id number] Screw Dvr Loc 2.7x20mm [facility]-120 - [id number] Implanted:Qty: 1 on 09/13/2017 by Chet Russell MD Screw Right: Wrist [employer] 1312--120 / / [id number] Screw Dvr Loc 2.7x22mm [facility] - [id number] Implanted:Qty: 1 on 09/13/2017 by Chet Russell MD Screw Right: Wrist VIC [employer]ET 13104-12-122 / / [id number] Screw Dvr Loc 2.7x22mm [facility] - [id number] Implanted:Qty: 1 on 09/13/2017 by Chet Russell MD Screw Right: Wrist VIC [employer] 131227-122 / / [id number] Allgr Vivigen Matrix 5ml -1600-002 - [id number] Implanted:Qty: 1 on 09/13/2017 by Chet Russell MD Tissue Right: Wrist [facility] 01/12/2018 BL-1600-002 / / [id number] 2.7x16 Screw [id number] Implanted:Qty: 1 on 09/13/2017 by Chet Russell MD Right: Wrist 09/13/2018 BIOMET - SCREW / / [id number] Screw 2.7x12 [id number] Implanted:Qty: 1 on 09/13/2017 by Chet Russell MD Right: Wrist 09/13/2018 BIOMET - [id number] / / [id number] Screw 2.7x12 [id number] Implanted:Qty: 1 on 09/13/2017 by Chet Russell MD Right: Wrist 09/13/2018 BIOMET - [id number] / / [id number] Tibial Base Size 4 Implanted:Qty: 1 on 12/23/2022 by Thomas Franco MD at [facility] Right: Knee 10/14/2032 DEPUY-1506- 21-004 / / [id number] Tibial Insert Implanted:Qty: 1 on 12/23/2022 by Thomas Franco MD at [facility] Right: Knee 08/13/2030 DEPUY-1520- 20-408 / / [id number] Explanted Type Area Home Agent Device Identifier Shelf Expiration Date Model / Serial / Lot Wire K Ss 1.6mm [id number] - [id number] Explanted:Qty: 1 on 09/13/2017 Wire Right: Hand VIC [employer] [id number] / / [id number] Wire K Ss 1.6mm Gl445dm - [id number] Explanted:Qty: 1 on 09/13/2017 Wire Right: Hand [employer] [id number] / / [id number] Wire K Ss 1.6mm [id number] - [id number] Explanted:Qty: 1 on 09/13/2017 Wire Right: Hand [employer] [id number] / / [id number] Locking Smooth Peg 202, 18 [id number] Implanted:08/16 by Chet Russell MD (Quantity not on file) Explanted:Qty: 1 on 09/13/2017 Right: Wrist 08/14/2018 BIOMET - [id number] / / [id number] Locking Smooth Peg 202, 18 [id number] Implanted:08/16 by Chet Russell MD (Quantity not on file) Explanted:Qty: 1 on 09/13/2017 Right: Wrist 08/14/2018 BIOMET - [id number] / / [id number] Procedures Procedure Name Priority Date/Time Associated Diagnosis Comments MAMMO SCRN UNI LEFT W OR WO CAD Routine 12/23/2014 11:30 AM REFINER OPERATOR Visit for screening mammogram from Last 3 Months or Most Recently Relevant to Health Maintenance Results * MAMMO SCRN UNI LEFT W OR WO CAD (12/23/2014 11:30 AM REFINER OPERATOR) Anatomical Region Laterality Modality Breast Left Other Narrative 12/24/2014 1:35 PM REFINER OPERATOR Left Mammogram Reason for Exam: Screening Comparison: [...] mammogram(s) Procedure Note Nae Lowe MD - 07/02/2021 Left Mammogram Reason for [...] Most Recently Relevant to Health Maintenance [place] [address] [place] [id number] * Guarantor: KASSI RODRIGUEZ Account Type Relation to Patient Date of Phone Billing Address Personal/Family [address] [place] [address] RX INFOCROSSING Medicaid RX [employer] RX Member Subscriber Plan / Payer (Ef fective 2020-Present) Name:Kassi Rodriguez Relation to Subscriber:Self Name:Kassi Rodriguez Payer ID:Not on file Group ID:[id number] Type:RX Medicare Part D Address: [place] Advance Directives For more information, please contact: [phone] * Full Code (Latest Code Status on File) Date Activated Date Inactivated Comments 12/23/2022 11:48 AM 12/24/2022 4:58 PM Care Teams Technician'S Helper Relationship Specialty Start Date End Date Hicks, Ilda Forbes APN [address] [place] [address] PCP - General 03/29/08
--- OUTSIDE RECORDS SUMMARY | 2024-11-19 06:48 | XMS_ITS | Encounter Summary ---
Author Organization [facility] Address [address] [place] [address] Care Team Providers Care Drilling Rig Operator Name Role Phone Ilda Hicks APN Primary Care Provider [phone] Encounter Details Date Type Department Care Team (Latest Contact Info) Description 09/28/2010 Ancillary Orders [facility] Pre-Registration [place] CALL TO MAKE APPOINTMENT ONLY [address] [place] [address] Jesenia Dubois MD NO ADDRESS ON FILE Other screening mammogram Social History Tobacco Use Types Packs/Day Years Used Date Smoking Tobacco: Never Alcohol Use Standard Drinks/Week Comments No 0 (1 standard drink = 0.6 oz pur e alcohol) Comments No Sex and Gender Information Value Date Recorded Sex Assigned at Not on file 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 [address] PCP - General 03/29/08 documented as of this encounter
--- OUTSIDE RECORDS SUMMARY | 2024-11-19 06:48 | XMS_ITS | Encounter Summary ---
Author Organization [facility] Address [address] [place] [address] Care Team Providers Care Fan Balancer Name Role Phone Ilda Hicks APN Primary Care Provider [phone] Encounter Details Date Type Department Care Team (Latest Contact Info) Description 09/17/2003 Outpatient [facility] Chet Handy MD [address] [address] OTHER LUNG DISEASE NEC (Primary Dx) Social History Tobacco Use Types Packs/Day Years Used Date Smoking Tobacco: Never Assessed Comments Unknown Sex and Gender Information Value Date Recorded Sex Assigned at Not on file Legal Sex Female 2:47 AM WHITING MACHINE OPERATOR Gender Identity Not on file Sexual Orientation Not on file documented as of this encounter Plan of Treatment Not on file documented as of this encounter Visit Diagnoses Diagnosis Other diseases of lung, not elsewhere classified- Primary documented in this encounter Care Teams Fan Balancer Relationship Specialty Start Date End Date Ilda Hicks APN [address] [address] PCP - General 03/29/08 documented as of this encounter
--- OUTSIDE RECORDS SUMMARY | 2024-11-19 06:48 | XMS_ITS | Encounter Summary ---
Author Organization [facility] Address [address] [place] [address] Care Team Providers Care Show Card Letterer Name Role Phone Ilda Hicks APN Primary Care Provider [phone] Encounter Details Date Type Department Care Team (Late st Contact Info) Description 02/04/[address] [facility] Gen Spec Surg [place] [facility] [address] [place] [address] Judson Yang MD NO ADDRESS ON FILE OT ABNORMAL RADIOLOG EXAM BREAST (Primary Dx) Social History Tobacco Use Types Packs/Day Years Used Date Smoking Tobacco: Never Assessed Comments Unknown Sex and Gender Information Value Date Recorded Sex Assigned at Not on file Legal Sex Female 2:47 AM BACKREST ASSEMBLER Gender Identity Not on file Sexual Orientation Not on file documented as of this encounter Plan of Treatment Not on file documented as of this encounter Visit Diagnoses Diagnosis Other (abnormal) findings on radiological examination of breast- Primary documented in this encounter Care Teams Show Card Letterer Relationship Specialty Start Date End Date Ilda Hicks APN [address] [facility] [place] [address] PCP - General 03/29/08 documented as of this encounter
--- OUTSIDE RECORDS SUMMARY | 2024-11-19 06:48 | XMS_ITS | Encounter Summary ---
Author Organization [facility] Address [address] [place] [address] Care Team Providers Care Coroner/Medical Examiner Name Role Phone Hicks, Ilda Forbes APN Primary Care Provider [phone] Encounter Details Date Type Department Care Team (Late st Contact Info) Description 06/23/2007 Outpatient Historical HIS IN BED Judson Yang MD NO ADDRESS ON FILE Unspecified Essential Hypertension Social History Tobacco Use Types Packs/Day Years Used Date Smoking Tobacco: Never Assessed Comments Unknown Sex and Gender Information Value Date Recorded Sex Assigned at Not on file Legal Sex Female 2:47 AM SEPARATOR OPERATOR Gender Identity Not on file Sexual [...] GLUCOSE POC 141(H) 60 - 100 mg/dL [facility] Venous blood specimen (specimen) 06/29/2007 5:46 AM CDT 06/30/2007 5:22 AM CDT Judson Yang MD POINT OF CARE TESTING Marilin l Result Performing Organization Address City/[facility] Co de Phone Number [facility] CLIA# [id number] [address] [place] [address] * (ABNORMAL) POC GLUCOSE (06/29/2007 12:10 AM CDT) GLUCOSE POC 171(H) 60 - 100 mg/dL [facility] Venous blood specimen (specimen) 06/29/2007 12:10 AM CDT 06/30/2007 5:22 AM CDT Judson Yang MD POINT OF CARE TESTING Marilin l Result Performing Organization Address [facility] Co de Phone Number [facility] CLIA# [id number] [address] [place] [address] * (ABNORMAL) POC GLUCOSE (06/28/2007 6:38 PM CDT) GLUCOSE POC 178(H) 60 - 100 mg/dL [facility] COMMENT POC Follow Protocol [facility] Venous blood specimen (specimen) 06/28/2007 6:38 PM CDT 06/29/2007 12:44 AM CDT Judson Yang MD POINT OF CARE TESTING Marilin l Result Performing Organization Address City/[facility] Co de Phone Number [facility] CLIA# [id number] [address] [place] [address] * (ABNORMAL) POC GLUCOSE (06/28/2007 2:02 PM CDT) GLUCOSE POC 109(H) 60 - 100 mg/dL [facility] Venous blood specimen (specimen) 06/28/2007 2:02 PM CDT 06/29/2007 1:13 AM CDT Judson Yang MD POINT OF CARE TESTING Marilin flores Result [facility] CLIA# [id number] [address] [place] [address] * PATHOLOGY (06/28/2007 8:22 AM CDT) PATHOLOGY/CYT OLOGY REPORT [facility] Anatomic Pathology Dept [address] [place] [address] Patient: KASSI RODRIGUEZ Accn No: [id number] Collected: 06/28/2007 8:22:00 AM SURGICAL PATHOLOGY FINAL [...] obtained on previous needle core biopsies [id number] and showed: ER: 0%, unfavorable DE: 0%, unfavorable Her2/humberto: 0, normal limit Ki-67: [...] (10 o'clock from previous needle core biopsy [id number]) Time in Formalin Between 6 and 48 Hours (Yes/No): Yes. PCR/TKB INTERFACE SYSTEM 06/28/2007 8:22 AM CDT us Judson Yang MD PATHOLOGY/CYTOLOGY ORDERAB LES Final Result INTERFACE SYSTEM Refer to clinic/hospital department documented in this encounter Visit Diagnoses Diagnosis Unspecified essential hypertension documented in this encounter Care Teams Coroner/Medical Examiner Relationship Specialty Start Date End Date Ilda Hicks APN [address] [place] [address] PCP - General 03/29/08 documented as of this encounter
--- OUTSIDE RECORDS SUMMARY | 2024-11-19 06:48 | XMS_ITS | Encounter Summary ---
Author Organization [facility] Address [address] [place] [address] Care Team Providers Care Freelance Makeup Artist Name Role Phone Ilda Hicks APN Primary Care Provider [phone] Encounter Details Date Type Department Care Team (Late st Contact Info) Description 02/25/2003 Outpatient Historical [facility] Gen Spec [facility]urg [facility] [address] [place] [address] Judson Yang MD NO ADDRESS ON FILE SOLITARY CYST OF BREAST (Primary Dx) Social History Tobacco Use Types Packs/Day Years Used Date Smoking Tobacco: Never Assessed Comments Unknown Sex and Gender Information Value Date Recorded Sex Assigned at Not on file Legal Sex Female 2:47 AM VB NET DEVELOPER Gender Identity Not on file Sexual Orientation Not on file documented as of this encounter Plan of Treatment Not on file documented as of this encounter Visit Diagnoses Diagnosis Solitary cyst of breast- Primary documented in this encounter Care Teams Freelance Makeup Artist Relationship Specialty Start Date End Date Ilda Hicks APN [address] [address] PCP - General 03/29/08 documented as of this encounter
--- OUTSIDE RECORDS SUMMARY | 2024-11-19 06:49 | XMS_ITS | Encounter Summary ---
Author Organization [employer] [facility] Address [address] [place] [address] Care Team Providers Care Supervisor Cd Area Name Role Phone Ilda Hicks CARMINE Primary Care Provider [phone] Encounter Details Date Type Department Care Team (Late st Contact Info) Description 01/05/2008 Outpatient Historical [facility] [address] [place] [address] Judson Yang MD NO ADDRESS ON FILE Social History Tobacco Use Types Packs/Day Years Used Date Smoking Tobacco: Never Assessed Comments Unknown Sex and Gender Information Value Date Recorded Sex Assigned at Not on file Legal Sex Female 2:47 AM DIGITAL DESIGNER Gender Identity Not on file Sexual Orientation Not on file documented as of this encounter Plan of Treatment Not on file documented as of this encounter Procedures Procedure Name Priority Date/Time Associated Diagnosis Comments PATHOLOGY Routine 01/05/2008 5:48 AM DIGITAL DESIGNER documented in this encounter Results * PATHOLOGY (01/05/2008 5:48 AM DIGITAL DESIGNER) PATHOLOGY/CYT OLOGY REPORT [facility] Anatomic Pathology Dept [address] [facility] [address] Patient: KASSI SUÁREZ Accn No: [id number] Collected: 01/05/2008 5:48:00 AM SURGICAL PATHOLOGY FINAL [...] the back along with the serial number [id number]. The attached plastic tubing measures 20 cm in length. The specimen is submitted for gross only. DLS/WLS INTERFACE SYSTEM 01/05/2008 5:48 AM DIGITAL DESIGNER us Judson Yang MD PATHOLOGY/CYTOLOGY ORDERAB LES Final Result INTERFACE SYSTEM Refer to clinic/hospital department documented in this encounter Visit Diagnoses Not on filedocumented in this encounter Care Teams Supervisor Cd Area Relationship Specialty Start Date End Date Ilda Hicks APN [facility] [address] [address] PCP - General 03/29/08 documented as of this encounter
--- OUTSIDE RECORDS SUMMARY | 2024-11-19 06:49 | XMS_ITS | Encounter Summary ---
Author Organization [facility] Address [address] [place] [address] Care Team Providers Care Examiner Rating Clerk Name Role Phone Hicks, Ilda Forbes APN Primary Care Provider [phone] Reason for Referral * Outpatient Services (Routine) - Closed Specialty Diagnoses / Procedures Referred By Kaya beltran Referred To Contact Diagnoses Other screening mammogram Procedures MAMMO DIGITAL SCREEN UNI LEFT Jesenia Dubois MD Referral ID Status Reason Start Date Expiration Date Visits Re quested Visits Authorized [id number] Closed 10/16/2014 11/16/2015 1 1 Encounter Details Date Type Department Care Team (Latest Contact Info) Description 10/16/2014 Ancillary Orders [facility] Pre-Registration [place] CALL TO MAKE APPOINTMENT ONLY [address] [place] [phone] Jesenia Dubois MD NO ADDRESS ON FILE Other screening mammogram (Primary Dx) Social History Tobacco Use Types Packs/Day Years Used Date Smoking Tobacco: Never Alcohol Use Standard Drinks/Week Comments No 0 (1 standard drink = 0.6 oz pur e alcohol) rare Comments No Sex and Gender Information Value Date Recorded Sex Assigned at Not on file Legal Sex Female 2:47 AM LEASING COORDINATOR Gender Identity Not on file Sexual Orientation Not on file Occupation Industry Job Start Date Job End Date Not on file Not on file Not on file Not on file documented as of this encounter Plan of Treatment Not on file documented as of this encounter Results * MAMMO DIGITAL SCREEN UNI LEFT (12/23/2014 11:30 AM LEASING COORDINATOR) Anatomical Region Laterality Modality Breast Left Mammography Narrative 12/24/2014 1:37 PM LEASING COORDINATOR Left Mammogram Reason for Exam: Screening Comparison: [...] mammogram documented in this encounter Care Teams Examiner Rating Clerk Relationship Specialty Start Date End Date Ilda Hicks APN [address] [address] PCP - General 03/29/08 documented as of this encounter
--- OUTSIDE RECORDS SUMMARY | 2024-11-19 06:49 | XMS_ITS | Encounter Summary ---
Author Organization [facility] Address [address] [place] [address] Care Team Providers Care Cad Administrator Name Role Phone Ilda Hicks APN Primary Care Provider [phone] Encounter Details Date Type Department Care Team (Latest Contact Info) Description 12/26/[address] [facility] [address] [place] [address] [facility] [address] [place] [address] Jesu Ho MD NO ADDRESS ON FILE Personal History of Malignant Neoplasm of Breast Social History Tobacco Use Types Packs/Day Years Used Date Smoking Tobacco: Never Assessed Comments Unknown Sex and Gender Information Value Date Recorded Sex Assigned at Not on file Legal Sex Female 2:47 AM FIRST AID TRAINER Gender Identity Not on file Sexual Orientation Not on file documented as of this encounter Plan of Treatment Not on file documented as of this encounter Visit Diagnoses Diagnosis Personal history of malignant neoplasm of breast documented in this encounter Care Teams Cad Administrator Relationship Specialty Start Date End Date Ilda Hicks APN [address] [facility] [address] [place] [address] PCP - General 03/29/08 documented as of this encounter
--- OUTSIDE RECORDS SUMMARY | 2024-11-19 06:49 | XMS_ITS | Encounter Summary ---
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 On the anterior and GRENADIAN dynamic images, the size and shape of [...] are unremarkable and show no significant change. [facility] 1658 Dictated By: Nicola Kellogg M.D. Electronically Signed By: Nicola Kellogg M.D. Date Signed: 11/28/07 [facility] Procedure Note Nicola Kellogg - 11/28/2007 11-27-07 [...] left ventricular acquisition. On the anterior and GRENADIAN dynamic images, the size and shape of [...] are unremarkable and show no significant change. [facility] 1658 Dictated By: Nicola Kellogg M.D. Electronically Signed By: Nicola Kellogg M.D. 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 [address] PCP - General 03/29/08 documented as of this encounter
--- OUTSIDE RECORDS SUMMARY | 2024-11-19 06:49 | XMS_ITS | Patient Health Record ---
Author Organization [facility] Address [address] [place] [address] Care Team Providers Care Parachute/Combatant Diver Officer Name Role Phone Ilda Hicks Primary Care Provider [phone] Allergies No Known Allergies Results Component Value Reference Range Flag Notes Thyroid Stimulating Hormone (TSH) 62258 Reviewed date:05/08/2024 10:22:14 AM Interpretation: Performing Lab: Notes/Report: Diagnosis Description: Encounter for screening for other suspected endocrine disorder TSH .512 .358-3.740 MlU/ML Lipid Panel Reflex DLDL 8006 1, [address] Reviewed date:05/08/2024 10:23:28 AM Interpretation: Performing Lab: Notes/Report: Diagnosis Description: Mixed hyperlipidemia Trig 139 NA Classification Guidelines:Triglycerides Adults: >20yrs Desirable <150 Borderline High 150-199 High 200-499 Very high >=500 Children: Male 0-4 yr 22-99 5-9 yr 30-101 10-14 yr 32-125 15-19 yr 37-148 Children: Female 0-4 yr 34-112 5-9 yr 32-105 10-14 yr 37-131 15-19 yr 39-132 Chol 212 <=200 MG/DL HI HDL 53 39-96 MG/DL Reference Ranges:HDL Male: 5-9y 38-75 10-14y 37-74 15-19y 30-63 >=20y 40-59 Female: 5-9y 36-73 10-14y 37-70 15-19y 35-74 >=20y 40-59 CH/HDL 4.0 0.0-4.9 RATIO LDL 131 0-130 MG/DL HI LDL result is inaccurate , if Trig is >400 mg/dl. See DLDL result. CBC w\ Auto Diff 78781 Reviewed date:05/08/2024 10:24:54 AM Interpretation: Performing Lab: [...] % Lymph Auto% 18.4 22.0-44.0 % LOW Mcculloch Auto% 10.6 3.0-7.0 % HI Eos Auto% 5.6 2.0-4.0 % HI Baso Auto% 0.9 0.0-1.0 % Imm Gran% .5 .0-.4 % HI Neutro Abs 4.24 .80-7.70 Absolute Neutrophil Count 4240 NA Lymph Abs 1.22 .10-4.10 Mcculloch Abs .70 .20-1.00 Eos Abs .37 .00-.40 Baso Abs .06 .00-.20 Imm Gran Abs .03 .00-.10 NRBC# .00 .00-.20 X10'3 NRBC% .00 .00-.20 /100 int act WBC's Hemoglobin A1c 27874 Reviewed date:05/08/2024 10:25:10 AM Interpretation: Performing Lab: Notes/Report: Diagnosis Description: Other penitentiary (current) drug therapy Hgb A1c 5.4 3.8-6.4 % Interpretation Of Hgb A1c: 4.5-6.2 % nondiabetics. >7.0 % diabetics. EAG 108 NA Estimated Aver age Glucose(EAG). Comprehensive Metabolic Pane l ([facility]) [address] Reviewed date:05/08/2024 10:25:30 AM Interpretation: Performing Lab: Notes/Report: Diagnosis Description: Essential (primary) hypertension Glucose Serum 85 71-110 MG/DL Testing p erformed at [address] [place] [address]. CLIA ID#: [id number] BUN 18 7-21 MG/DL Creat .86 .51-1.17 MG/DL V-siwrnv-m-benzoquinone imine (NAPQI) is a metabolite of acetaminophen, NAPQI concentrations of apparoximately 10 mg/L correlation to toxic levels of acetaminophen demonstrates a greater than or equil to 10% change in results. NAPQI concentrations greater than this may lead to falsely depressed results for patient samples. Use of this assay is not recommended for patients undergoing treatment with phenindione, due to the potential for falsely depressed results. GFR 71.2 NA Calculation pe rformed from [...] 12-78 UNIT/L Osmo Serum,Calculated 287 280-300 MOSM/KG Reason For Referral No Information Medications Medication [...] 30 Not-Taking Vitamin D (Ergocalciferol) 1.25 MG (59242 UT) Capsule TAKE ONE CAPSULE BY MOUTH [...] Do you drink alcohol? No Section Notes: 12/31/2021 PHQ-9 04/26/2024 PHQ-9 05/07/2024 Problems Problem Type SNOMED Code ICD Code Onset Dates Problem Status W/U Status Risk Notes Problem Mixed hyperlipidemia (221024932) Mixed hyperlipidemia (E78.2) Active confirmed Problem Abnormal immunology finding (847314391) Other specified abnormal immunological findings in serum (R76.8) Active confirmed Problem Anxiety (31581884) Anxiety (F41.9) Active confi rmed Problem Annual wellness visit (776182371160387) Wellness examination (Z00.00) Active confirmed Problem Essential hypertension (30448760) Hypertension, unspecified type (I10) Active confirmed Problem Diabetes mellitus screening (293142826) Diabetes mellitus screening (Z13.1) Active confirmed Problem Long-term current use of drug therapy (002361043) Long-term use of immunosuppressant medication (Z79.899) Active confirmed Problem Lipid screening (239985507) Lipid screening (Z13.220) Active confirmed Problem Thyroid disorder screening (070219795) Thyroid disorder screen (Z13.29) Active confirmed Problem Dermatomyositis (797714414) Dermatomyositis (M33.90) Active confirmed Problem Primary hypertension (83566200) Primary hypertension (I10) Active confirmed Problem Sjogren [...] 05/07/2024 Encounters Encounter Location Date Provider Diagnosis [facility] Office [address] [address] 04/26/2024 [facility] Mixed hyperlipidemia E78.2 ; Thyroid disorder screen Z13.29 ; Hyperglycemia R73.9 ; Long-term use of immunosuppressant medication Z79.899 ; Primary hypertension I10 ; Dermatomyositis M33.90 ; Anxiety F41.9 ; Sjogren syndrome with inflammatory arthritis M35.05 ; Depression screen Z13.31 ; Encounter for immunization Z23 and Immunization not carried out because of patient refusal Z28.21 [facility] Office [address] [address] 05/07/2024 [facility] Hyperglycemia R73.9 ; Sjogren syndrome with inflammatory arthritis M35.05 ; Long-term use of immunosuppressant medication Z79.899 ; Primary hypertension I10 ; Thyroid disorder screen Z13.29 ; Mixed hyperlipidemia E78.2 ; Encounter for Medicare annual wellness exam Z00.00 and Breast cancer screening by mammogram Z12.31 [facility] [address] [address] 10/10/2024 [facility] Assessments Encounter Date Diagnosis (ICD Code) [...] Dermatomyositis (ICD-10 - M33.90) dr merrick avina 04/26/2024 Anxiety (ICD-10 - F41.9) alprazolam 05/07/2024 Encounter for Medicare annual wellness exam (ICD-10 - Z00.00) Please schedule your next AWV in 1 year. 04/26/2024 Sjogren syndrome wit h inflammatory arthritis [...] Screening Digital Breast Tomos ynthesis, bilateral - [address] 05/07/2024 Insurance Providers Payer Name Payer Address Payer Phone Subscriber Number Group Number Insured Name Patient Relationship to Insured Coverage Start Date Coverage End Date [employer] Medicare Advantage PPO [address] [address] [place] [address] [id number] Kassi MADISON Self - patient is the insured Medical (General) History Medical History History ICD Code High Blood Pressure rheumatoid arthritis Arthritis dermatomyositis gallstones breast cancer Surgical History Surgery Date(Month/Year) right knee replacement tubal ligation cholecystectomy breast reconstruction right mastectomy Hospitalization History Reason Date(Month/Year) see surgical hx
--- NOTE | 2024-11-19 08:00 | MR_ITS ---
WS: [id number] MRI BRAIN WITHOUT CONTRAST HISTORY: cerebellar hypoattenuating lesion/encephalomalacia? COMPARISON: CT head 11/18/2024 TECHNIQUE: Diffusion imaging, multiplanar T1, T2 and FLAIR imaging obtained. Extensive abnormal signal in the posterior fossa. There is abnormal signal in both the RIGHT and LEFT cerebellum with extension towards the middle cerebellar peduncles and into the posterior donaldo. There is variable low signal centrally surrounded by large amount of edema in the cerebellum. The central areas of decreased signal measures 1.9 x 2.0 cm on the RIGHT and 2.4 x 2.0 cm on the LEFT. There is probably a small amount of hemosiderin present within each cerebellar lesion. Small amount of edema extends into the posterior medial RIGHT temporal lobe. Additional focal increased T2 signal involving the posterior RIGHT frontal lobe cortex measuring 0.6 cm. Small amount of signal abnormality in the upper cervical cord at C2 is probably an artifact. Mild volume loss otherwise. Mild ventriculomegaly on the basis of atrophy. There is no hydrocephalus. There is mild narrowing of the fourth ventricle secondary to the cerebellar edema. No inferior displacement of cerebellar tonsils. Dural venous sinuses and [place] of [place] demonstrate no abnormality on this unenhanced studies. Paranasal sinuses: Clear. Mastoid air cells: Small amount of fluid in the LEFT mastoid air cells. Calvarium and scalp: Intact. MR/MR head wo con* [id number] IMPRESSION: 1. Extensive signal abnormality bilaterally in the cerebellum with extension i nto the middle cerebellar peduncles, posterior LEFT donaldo and posterior medial R IGHT temporal lobe. There are a few small hemosiderin deposits within the signa l abnormality surrounded by a large amount of edema. Recommend follow-up MRI br ain with contrast at this time. Suspect metastatic neoplasm, less likely absces s or infarct. 2. Additional posterior RIGHT frontal lobe cortical lesion at 0.6 cm. Suspicio us for metastatic site also. 3. Narrowing and encroachment upon the fourth ventricle secondary to the cereb ellar edema. No hydrocephalus at this time.
--- OUTSIDE RECORDS SUMMARY | 2024-11-19 10:29 | XMS_ITS | Encounter Summary ---
Author Organization [facility] Address [address] [place] [address] Care Team Providers Care Experimental Machining Lab Manager Name Role Phone Hicks, Ilda Forbes APN Primary Care Provider [phone] Encounter Details Date Type Department Care Team (Late st Contact Info) Description 08/15/2007 Outpatient [facility] [address] [place] [address] Katie Spence, TEST DESK OPERATOR [address] [place] [address] Social History Tobacco Use Types Packs/Day Years Used Date Smoking Tobacco: Never Assessed Comments Unknown Sex and Gender Information Value Date Recorded Sex Assigned at Not on file 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 Female 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 Gender Identity Not on file Sexual Orientation Not on file documented as of this encounter Plan of Treatment Not on file documented as of this encounter Procedures Procedure Name Priority Date/Time Associated Diagnosis Comments PATHOLOGY Routine 08/15/2007 8:42 AM CDT documented in this encounter Results * PATHOLOGY (08/15/2007 8:42 AM CDT) PATHOLOGY/CY TOLOGY REPORT [facility] [address] [facility] [address] Patient: KASSI RODRIGUEZ Accn No: [id number] Collected: 08/15/2007 8:42:00 AM DERMATOPATHOLOGY FINAL REPORT Diagnosis 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 *Gross examination performed at [facility], [address] [place] [address] DI RP /WLS Microscopic Description Sections show a band-like infiltrate of lymphocytes and eosinophils, which focally obscures the dermal-epidermal junction. The adjacent epidermis shows vacuolar changes and contains necrotic keratinocytes. INTERFACE SYSTEM 08/15/2007 8:42 AM CDT Katie Spence [facility] PATHOLOGY/CYTOLOGY ORDERABLES Final Result INTERFACE SYSTEM Refer to clinic/hospital department documented in this encounter Visit Diagnoses Not on filedocumented in this encounter Care Teams Experimental Machining Lab Manager Relationship Specialty Start Date End Date Ilda Hicks APN [facility] [address] [address] PCP - General 03/29/08 documented as of this encounter
--- OUTSIDE RECORDS SUMMARY | 2024-11-19 10:29 | XMS_ITS | Encounter Summary ---
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 Gender Identity Not on file Sexual Orientation [...] (ABNORMAL) POC GLUCOSE (07/07/2007 7:08 AM CDT) [facility] Signature GLUCOSE POC 111(H) 60 - 100 mg/dL [facility] Venous blood specimen (specimen) 07/07/2007 7:08 AM CDT 07/08/2007 1:11 AM CDT us Jesu Ho MD POINT OF CARE TESTING Final Re sult [facility] CLIA# [id number] [address] [place] [address] * (ABNORMAL) POC GLUCOSE (07/06/2007 8:07 PM CDT) GLUCOSE POC 116(H) 60 - 100 mg/dL [facility] Venous blood specimen (specimen) 07/06/2007 8:07 PM CDT 07/07/2007 2:42 AM CDT Jesu Ho MD POINT OF CARE TESTING Final Re sult Performing Organization Address [facility] Co de Phone Number [facility] CLIA# [id number] [address] [place] [address] * (ABNORMAL) POC GLUCOSE (07/06/2007 6:11 PM CDT) GLUCOSE POC 105(H) 60 - 100 mg/dL [facility] Venous blood specimen (specimen) 07/06/2007 6:11 PM CDT 07/07/2007 2:42 AM CDT us Jesu Ho MD POINT OF CARE TESTING Final Re sult Performing Organization Address [facility] Co de Phone Number [facility] CLIA# [id number] [address] [place] [address] * (ABNORMAL) POC GLUCOSE (07/06/2007 1:37 PM CDT) GLUCOSE POC 128(H) 60 - 100 mg/dL [facility] Venous blood specimen (specimen) 07/06/2007 1:37 PM CDT 07/07/2007 2:42 AM CDT us Jesu Ho MD POINT OF CARE TESTING Final Re sult Performing Organization Address [facility] Co de Phone Number [facility] CLIA# [id number] [address] [place] [address] * (ABNORMAL) POC GLUCOSE (07/06/2007 5:40 AM CDT) GLUCOSE POC 114(H) 60 - 100 mg/dL [facility] Venous blood specimen (specimen) 07/06/2007 5:40 AM CDT 07/07/2007 2:42 AM CDT Jesu Ho MD POINT OF CARE TESTING Final Re sult Performing Organization Address [facility] Co de Phone Number [facility] CLIA# [id number] [address] [place] [address] * (ABNORMAL) POC GLUCOSE (07/05/2007 10:13 PM CDT) GLUCOSE POC 146(H) 60 - 100 mg/dL [facility] Venous blood specimen (specimen) 07/05/2007 10:13 PM CDT 07/06/2007 3:14 AM CDT Jesu Ho MD POINT OF CARE TESTING Final Re sult Performing Organization Address [facility] de Phone Number [facility] CLIA# [id number] [address] [place] [address] * (ABNORMAL) POC GLUCOSE (07/05/2007 4:21 PM CDT) GLUCOSE POC 132(H) 60 - 100 mg/dL [facility] Venous blood specimen (specimen) 07/05/2007 4:21 PM CDT 07/06/2007 3:14 AM CDT Jesu Ho MD POINT OF CARE TESTING Final Re sult Performing Organization Address [facility] de Phone Number [facility] CLIA# [id number] [address] [place] [address] * (ABNORMAL) POC GLUCOSE (07/05/2007 12:31 PM CDT) GLUCOSE POC 145(H) 60 - 100 mg/dL [facility] Venous blood specimen (specimen) 07/05/2007 12:31 PM CDT 07/06/2007 3:17 AM CDT us Jesu Ho MD POINT OF CARE TESTING Final Re sult Performing Organization Address [facility] Co de Phone Number [facility] CLIA# [id number] [address] [place] [address] * (ABNORMAL) POC GLUCOSE (07/05/2007 7:52 AM CDT) GLUCOSE POC 118(H) 60 - 100 mg/dL [facility] Venous blood specimen (specimen) 07/05/2007 7:52 AM CDT 07/06/2007 3:17 AM CDT us Jesu Ho MD POINT OF CARE TESTING Final Re sult Performing Organization Address [facility] de Phone Number [facility] CLIA# [id number] [address] [place] [address] * (ABNORMAL) POC GLUCOSE (07/04/2007 8:25 PM CDT) COMMENT POC Follow Protocol [facility] GLUCOSE POC 132(H) 60 - 100 mg/dL [facility] Venous blood specimen (specimen) 07/04/2007 8:25 PM CDT 07/05/2007 5:13 AM CDT us Jesu Ho MD POINT OF CARE TESTING Final Re sult Performing Organization Address [facility] de Phone Number [facility] CLIA# [id number] [address] [place] [address] * (ABNORMAL) POC GLUCOSE (07/04/2007 6:11 PM CDT) COMMENT POC Follow Protocol [facility] GLUCOSE POC 115(H) 60 - 100 mg/dL [facility] Venous blood specimen (specimen) 07/04/2007 6:11 PM CDT 07/05/2007 5:13 AM CDT us Jesu Ho MD POINT OF CARE TESTING Final Re sult Performing Organization Address [facility] de Phone Number [facility] CLIA# [id number] [address] [place], [place] [address] * (ABNORMAL) POC GLUCOSE (07/04/2007 12:09 PM CDT) GLUCOSE POC 122(H) 60 - 100 mg/dL [facility] Venous blood specimen (specimen) 07/04/2007 12:09 PM CDT 07/05/2007 5:09 AM CDT us Jesu Ho MD POINT OF CARE TESTING Final Re sult Performing Organization Address [facility] de Phone Number [facility] CLIA# [id number] [address] [place] [address] * PTT (07/04/2007 6:08 AM CDT) PTT 34.0 22.5 - 36.5 Secs [facility] Comment: Therapeutic Range: Hi-level PE/DVT heparin [...] ORDERABLES Final Re sult Performing Organization Address [facility] de Phone Number [facility] CLIA# [id number] [address] [place] [address] * (ABNORMAL) CBC WITH DIFFERENTIAL (07/04/2007 6:08 AM CDT) BASOPHILS 0.1 0.0 - 1.0 % [facility] MPV 10.6 8.9 - 12.8 Fl [facility] BASOPHILS ABSOLUTE 0.0 0.0 - 0.2 K/ul [facility] HEMOGLOBIN 8.7(L) 12.0 - 16.0 g/dL [facility] MONOCYTES 6.9 2.0 - 10.0 % [facility] RDW 14.9(H) 11.0 - 14.5 % [facility] MONOCYTE ABSOLUTE 0.8(H) 0.1 - 0.6 K/ul [facility] WBC 11.4(H) 4.8 - 10.8 K/ul [facility] NEUTROPHILS 81.6(H) 42.2 - 75.2 % [facility] MCH 27.2 27.0 - 34.0 pg [facility] NEUTROPHIL ABSOLUTE 9.3(H) 2.0 - 8.0 K/ul [facility] HEMATOCRIT 27.6(L) 36.0 - 46.0 % [facility] PLATELETS 335 140 - 440 K/ul [facility] EOSINOPHIL ABSOLUTE 0.0 0.0 - 0.7 K/ul [facility] EOSINOPHILS 0.1 0.0 - 7.0 % [facility] PERIPHERAL BLOOD SMEAR REVIEW Automated Diff [facility] RBC 3.20(L) 4.20 - 5.40 Mil/ul [facility] MCHC 31.5 30.0 - 35.0 g/dL [facility] LYMPHOCYTE ABSOLUTE 1.3 1.2 - 4.0 K/ul [facility] LYMPHOCYTES 11.3(L) 24.0 - 44.0 % [facility] MCV 86.3 84.0 - 103.0 Fl [facility] Blood specimen (specimen) 07/04/2007 6:08 AM CDT 07/04/2007 6:35 AM CDT us Jesu Ho MD HEMATOLOGY ORDERABLES Final Re sult Performing Organization Address [facility] de Phone Number [facility] CLIA# [id number] [address] [place] [address] * (ABNORMAL) POC GLUCOSE (07/04/2007 5:18 AM CDT) GLUCOSE POC 161(H) 60 - 100 mg/dL [facility] Venous blood specimen (specimen) 07/04/2007 5:18 AM CDT 07/05/2007 5:09 AM CDT us Jesu Ho MD POINT OF CARE TESTING Final Re sult Performing Organization Address [facility] de Phone Number [facility] CLIA# [id number] [address] [place] [address] * (ABNORMAL) POC GLUCOSE (07/03/2007 11:57 PM CDT) GLUCOSE POC 201(H) 60 - 100 mg/dL [facility] Venous blood specimen (specimen) 07/03/2007 11:57 PM CDT 07/04/2007 2:03 AM CDT us Jesu Ho MD POINT OF CARE TESTING Final Re sult Performing Organization Address [facility] de Phone Number [facility] CLIA# [id number] [address] [place] [address] * (ABNORMAL) POC GLUCOSE (07/03/2007 5:16 PM CDT) GLUCOSE POC 121(H) 60 - 100 mg/dL [facility] Venous blood specimen (specimen) 07/03/2007 5:16 PM CDT 07/04/2007 1:23 AM CDT us Jesu Ho MD POINT OF CARE TESTING Final Re sult Performing Organization Address [facility] Co de Phone Number [facility] CLIA# [id number] [address] [place] [address] * (ABNORMAL) POC GLUCOSE (07/03/2007 8:06 AM CDT) GLUCOSE POC 106(H) 60 - 100 mg/dL [facility] Venous blood specimen (specimen) 07/03/2007 8:06 AM CDT 07/04/2007 7:48 AM CDT us Jesu Ho MD POINT OF CARE TESTING Final Re sult Performing Organization Address [facility] de Phone Number [facility] CLIA# [id number] [address] [place] [address] documented in this encounter Visit Diagnoses Diagnosis Morbid obesity (CMS/HCC) Morbid obesity Malignant neoplasm of breast (female), unspecified site Personal history of tobacco use, presenting hazards to health documented in this encounter Care Teams Lead Esthetician Relationship Specialty Start Date End Date Ilda Hicks APN [address] [address] PCP - General 03/29/08 documented as of this encounter
--- OUTSIDE RECORDS SUMMARY | 2024-11-19 10:29 | XMS_ITS | Encounter Summary ---
Author Organization [facility] Address [address] [place] [address] Care Team Providers Care Fire Alarm Technician Name Role Phone Hicks, Ilda Forbes APN Primary Care Provider [phone] Encounter Details Date Type Department Care Team (Latest Contact Info) Description 08/23/2007 Outpatient Historical [facility] [address] [address] [place] [address] Judson Yang MD NO ADDRESS ON FILE Malignant Neoplasm of Breast (Female), Unspecified Site (CMS/HCC); Unspecified Essential Hypertension; Personal History of Allergy to Sulfonamides Social History Tobacco Use Types Packs/Day Years Used Date Smoking Tobacco: Never Assessed Comments Unknown Sex and Gender Information Value Date Recorded Sex Assigned at Not on file 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
--- OUTSIDE RECORDS SUMMARY | 2024-11-19 10:29 | XMS_ITS | Encounter Summary ---
Author Organization [facility] Address [address] [place] [address] Care Team Providers Care Education General Manager Name Role Phone Hicks, Ilda Forbes APN Primary Care Provider [phone] Encounter Details Date Type Department Care Team (Latest Contact Info) Description 08/24/2007 Outpatient Historical [facility] [address] [address] Jesenia Dubois MD NO ADDRESS ON FILE Malignant Neoplasm of Breast (Female), Unspecified Site (CMS/HCC) Social History Tobacco Use Types Packs/Day Years Used Date Smoking Tobacco: Never Assessed Comments Unknown Sex and Gender Information Value Date Recorded Sex Assigned at Not on file 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
--- OUTSIDE RECORDS SUMMARY | 2024-11-19 10:30 | XMS_ITS | Encounter Summary ---
Author Organization [facility] Address [address] [place] [address] Care Team Providers Care Medical Safety Director Name Role Phone Ilda Hicks APN Primary Care Provider [phone] Encounter Details Date Type Department Care Team (Latest Contact Info) Description 12/26/2007 Outpatient Historical [facility] [address] [facility] [address] [place] [address] Jesu Ho MD NO ADDRESS ON FILE Personal History of Malignant Neoplasm of Breast Social History Tobacco Use Types Packs/Day Years Used Date Smoking Tobacco: Never Assessed Comments Unknown Sex and Gender Information Value Date Recorded Sex Assigned at Not on file 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 [facility] [address] [place] [address] PCP - General 03/29/08 documented as of this encounter
--- OUTSIDE RECORDS SUMMARY | 2024-11-19 10:30 | XMS_ITS | Encounter Summary ---
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 [place], [place] [address] PCP - General 03/29/08 documented as of this encounter
--- OUTSIDE RECORDS SUMMARY | 2024-11-19 10:30 | XMS_ITS | Encounter Summary ---
Author Organization [facility] Address [address] [facility] Attn: Epic Prelude ADT [place] [address] Care Team Providers Care Land Department Head Name Role Phone Ilda Hicks APN Primary Care Provider [phone] Encounter Details Date Type Department Care Team (Late st Contact Info) Description 11/07/2000 Outpatient Historical Non-Staff, Physician NO ADDRESS ON FILE Social History Tobacco Use Types Packs/Day Years Used Date Smoking Tobacco: Never Assessed Comments Unknown Sex and Gender Information Value Date Recorded Sex Assigned at Not on file 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 [facility] [address] [place] [address] PCP - General 03/29/08 documented as of this encounter
--- OUTSIDE RECORDS SUMMARY | 2024-11-19 10:30 | XMS_ITS | Encounter Summary ---
Author Organization [facility] Address [address] [place] [address] Care Team Providers Care Workers Compensation Defense Attorney Name Role Phone Ilda Hicks APN Primary Care Provider [phone] Encounter Details Date Type Department Care Team (Latest Contact Info) Description 11/07/2000 Outpatient Historical [facility] [address] [facility] [address] [place] [phone] Kvng Lyn MD NO ADDRESS ON FILE Other screening mammogram (Primary Dx) Social History Tobacco Use Types Packs/Day Years Used Date Smoking Tobacco: Never Assessed Comments Unknown Sex and Gender Information Value Date Recorded Sex Assigned at Not on file 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
--- OUTSIDE RECORDS SUMMARY | 2024-11-19 10:30 | XMS_ITS | Encounter Summary ---
Author Organization [facility] Address [address] [place] [address] Care Team Providers Care Dial Screw Assembler Name Role Phone Ilda Hicks APN Primary Care Provider Encounter Details Date Type Department Care Team (Latest Contact Info) Description 09/28/2010 Ancillary Orders [facility] Pre-Registration [place] CALL TO MAKE APPOINTMENT ONLY [address] [place] [address] Jesenia Dubois MD NO ADDRESS ON FILE Other screening mammogram Social History Tobacco Use Types Packs/Day Years Used Date Smoking Tobacco: Never Alcohol Use Standard Drinks/Week Comments No 0 (1 standard drink = 0.6 oz pur e alcohol) Comments No Sex and Gender Information Value Date Recorded Sex Assigned at Not on file 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 [address] PCP - General 03/29/08 documented as of this encounter
--- OUTSIDE RECORDS SUMMARY | 2024-11-19 10:30 | XMS_ITS | Encounter Summary ---
Author Organization [facility] Address [address] [place] [address] Care Team Providers Care Forming Fixer Name Role Phone Ilda Hicks APN Primary Care Provider [phone] Encounter Details Date Type Department Care Team (Late st Contact Info) Description 09/17/2003 Outpatient Historical [facility] [address] [facility] [address] [place] [address] Azeb Aranda MD NO ADDRESS ON FILE SYMPTOMS IN BREAST NEC (Primary Dx) Social History Tobacco Use Types Packs/Day Years Used Date Smoking Tobacco: Never Assessed Comments Unknown Sex and Gender Information Value Date Recorded Sex Assigned at Not on file 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 [facility] [address] [place] [address] PCP - General 03/29/08 documented as of this encounter
--- OUTSIDE RECORDS SUMMARY | 2024-11-19 10:30 | XMS_ITS | Encounter Summary ---
Author Organization [facility] Address [address] [place] [address] Care Team Providers Care Windows Migration Technician Name Role Phone Ilda Hicks APN Primary Care Provider [phone] Encounter Details Date Type Department Care Team (Latest Contact Info) Description 01/19/2000 Outpatient Historical [facility] [place] NO ADDRESS ON FILE Other plastic surgery for unacceptable cosmetic appearance (Primary Dx) Social History Tobacco Use Types Packs/Day Years Used Date Smoking Tobacco: Never Assessed Comments Unknown Sex and Gender Information Value Date Recorded Sex Assigned at Not on file 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
--- OUTSIDE RECORDS SUMMARY | 2024-11-19 10:30 | XMS_ITS | Encounter Summary ---
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
--- OUTSIDE RECORDS SUMMARY | 2024-11-19 10:30 | XMS_ITS | Encounter Summary ---
Author Organization [facility] Address [address] [place] [address] Care Team Providers Care Chief Solution Architect Name Role Phone Ilda Hicks APN Primary Care Provider [phone] Encounter Details Date Type Department Care Team (Latest Contact Info) Description 09/17/2003 Outpatient Historical [facility] Chet Handy MD [address] [address] OTHER LUNG DISEASE NEC (Primary Dx) Social History Tobacco Use Types Packs/Day Years Used Date Smoking Tobacco: Never Assessed Comments Unknown Sex and Gender Information Value Date Recorded Sex Assigned at Not on file 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 [address] PCP - General 03/29/08 documented as of this encounter
--- OUTSIDE RECORDS SUMMARY | 2024-11-19 10:30 | XMS_ITS | Encounter Summary ---
Author Organization [facility] Address [address] [place] [address] Care Team Providers Care Tour Consultant Name Role Phone Hicks, Ilda Forbes APN Primary Care Provider [phone] Reason for Referral * Outpatient Services (Routine) - Closed Specialty Diagnoses / Procedures Referred By Kaya beltran Referred To Contact Diagnoses Other screening mammogram Procedures MAMMO DIGITAL SCREEN UNI LEFT Jesenia Dubois MD NO ADDRESS ON FILE [employer] Pre-Registration [place] CALL TO MAKE APPOINTMENT ONLY [address] [facility] [place] [address] Phone: tel: fax: Referral ID Status Reason Start Date Expiration Date Visits Re quested Visits Authorized [id number] Closed 05/09/2013 06/09/2014 1 1 Encounter Details Date Type Department Care Team (Latest Contact Info) Description 05/09/2013 Ancillary Orders [facility] Pre-Registration [place] CALL TO MAKE APPOINTMENT ONLY [address] [place] [address] Jesenia Dubois MD NO ADDRESS ON FILE Other screening mammogram (Primary Dx) Social History Tobacco Use Types Packs/Day Years Used Date Smoking Tobacco: Never Alcohol Use Standard Drinks/Week Comments No 0 (1 standard drink = 0.6 oz pur e alcohol) rare Comments No Sex and Gender Information Value Date Recorded Sex Assigned at Not on file 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
--- OUTSIDE RECORDS SUMMARY | 2024-11-19 10:30 | XMS_ITS | Encounter Summary ---
Author Organization [facility] Address [address] [place] [address] Care Team Providers Care Predictive Maintenance Technician Name Role Phone Hicks, Ilda Forbes APN Primary Care Provider [phone] Encounter Details Date Type Department Care Team (Late st Contact Info) Description 08/19/2008 Ancillary Orders [facility] [address] [facility] [address] [place] [phone] Jesenia Dubois MD NO ADDRESS ON FILE Screening Mammogram Social History Tobacco Use Types Packs/Day Years Used Date Smoking Tobacco: Never Alcohol Use Standard Drinks/Week Comments No 0 (1 standard drink = 0.6 oz pur e alcohol) Comments No Sex and Gender Information Value Date Recorded Sex Assigned at Not on file 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
--- OUTSIDE RECORDS SUMMARY | 2024-11-19 10:30 | XMS_ITS | Encounter Summary ---
Author Organization [facility] Address [address] [place] [address] Care Team Providers Care Entry Level Automotive Technician Name Role Phone Hicks, Ilda Forbes APN Primary Care Provider [phone] Encounter Details Date Type Department Care Team (Latest Contact Info) Description 06/08/2007 Outpatient [facility] Breast [facility] [address] 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 [...] determined by the Diagnostic Immunohistochemistry Laboratory of [facility] in compliance with CLIA'88 regulations. Some of these tests rely on the use of analyte specific reagents and are subject to specific labeling requirements by the FDA. This testing was developed by the Diagnostic Immunohistochemistry Laboratory of [facility]. It has not been cleared or [...] of these antibodies was accomplished using the Sawyer Biotin/Streptavidin-HRP i-VIEW DAB Visualization System. INTERFACE SYSTEM 06/09/2007 10:2 8 AM CDT Judson Yang MD PATHOLOGY/CYTOLOGY ORDERAB LES Edited INTERFACE SYSTEM Refer to clinic/hospital department * US GUIDE NEEDLE PLACEMENT (06/09/2007 8:30 AM CDT) Anatomical Region Laterality Modality Other 06/09/2007 8:30 AM CDT Narrative 06/09/2007 8:30 AM CDT Report Available in [facility] Procedure Note 03/18/2008 Report Available in [facility] us Judson Yang MD US ORDERABLES Final Resu lt * US BIOPSY BREAST RIGHT (06/09/2007 8:30 AM CDT) Anatomical Region Laterality Modality Breast Right Other 06/09/2007 8:30 AM CDT Narrative 06/09/2007 8:30 AM CDT Report Available in [facility] Procedure Note 03/18/2008 Report Available in [facility] us Judson Yang MD US ORDERABLES Final Resu lt * US BREAST UNILATERAL RIGHT (06/09/2007 8:01 AM CDT) Anatomical Region Laterality Modality Breast Right Other 06/09/2007 8:01 AM CDT Narrative 06/09/2007 8:01 AM CDT Report Available in [facility] Procedure Note 03/18/2008 Report Available in [facility] Judson Yang MD ORDERABLES Final Resu lt documented in this encounter Visit Diagnoses Diagnosis Postmenopausal bleeding Family history of malignant neoplasm of breast documented in this encounter Care Teams Entry Level Automotive Technician Relationship Specialty Start Date End Date Kurt, Ilda Forbes APN [facility] [address] [address] PCP - General 03/29/08 documented as of this encounter
--- OUTSIDE RECORDS SUMMARY | 2024-11-19 10:30 | XMS_ITS | Encounter Summary ---
Author Organization [facility] Address [address] [place] [address] Care Team Providers Care Fire Support Man Name Role Phone Ilda Hicks APN Primary Care Provider [phone] Encounter Details Date Type Department Care Team (Late st Contact Info) Description 11/13/2001 Outpatient Historical [facility] [address] [facility] [address] [place] [phone] Azeb Aranda MD NO ADDRESS ON FILE SCREENING MAMM-MAILG NEOPL-OTHER (Primary Dx) Social History Tobacco Use Types Packs/Day Years Used Date Smoking Tobacco: Never Assessed Comments Unknown Sex and Gender Information Value Date Recorded Sex Assigned at Not on file Legal Sex Female 2:47 AM 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
--- OUTSIDE RECORDS SUMMARY | 2024-11-19 10:30 | XMS_ITS | Encounter Summary ---
Author Organization [facility] Address [address] [place] [address] Care Team Providers Care Saw Maker Name Role Phone Ilda Hicks APN Primary Care Provider [phone] Encounter Details Date Type Department Care Team (Late st Contact Info) Description 02/04/[address] [facility] Gen Spec Surg [facility] [address] [place] [address] Judson Yang MD NO ADDRESS ON FILE OT ABNORMAL RADIOLOG EXAM BREAST (Primary Dx) Social History Tobacco Use Types Packs/Day Years Used Date Smoking Tobacco: Never Assessed Comments Unknown Sex and Gender Information Value Date Recorded Sex Assigned at Not on file Legal Sex Female 2:47 AM SUPERVISOR BLOOD Gender Identity Not on file Sexual Orientation Not on file documented as of this encounter Plan of Treatment Not on file documented as of this encounter Visit Diagnoses Diagnosis Other (abnormal) findings on radiological examination of breast- Primary documented in this encounter Care Teams Saw Maker Relationship Specialty Start Date End Date Ilda Hicks APN [address] [facility] [address] [place] [address] PCP - General 03/29/08 documented as of this encounter
--- OUTSIDE RECORDS SUMMARY | 2024-11-19 10:30 | XMS_ITS | Encounter Summary ---
Author Organization [facility] Address [address] [place] [address] Care Team Providers Care Fence Installer Foreman Name Role Phone Hicks, Ilda Forbes APN Primary Care Provider [phone] Reason for Referral * Outpatient Services (Routine) - Closed Specialty Diagnoses / Procedures Referred By Kaya beltran Referred To Contact Diagnoses Other screening mammogram Procedures MAMMO DIGITAL SCREEN UNI LEFT Jesenia Dubois MD Referral ID Status Reason Start Date Expiration Date Visits Re quested Visits Authorized [id number] Closed 10/16/2014 11/16/2015 1 1 Encounter Details Date Type Department Care Team (Latest Contact Info) Description 10/16/2014 Ancillary Orders [facility] Pre-Registration [place] CALL TO MAKE APPOINTMENT ONLY [address] [place] [phone] Jesenia Dubois MD NO ADDRESS ON FILE Other screening mammogram (Primary Dx) Social History Tobacco Use Types Packs/Day Years Used Date Smoking Tobacco: Never Alcohol Use Standard Drinks/Week Comments No 0 (1 standard drink = 0.6 oz pur e alcohol) rare Comments No Sex and Gender Information Value Date Recorded Sex Assigned at Not on file Legal Sex Female 2:47 AM CASHIER GENERAL Gender Identity Not on file Sexual Orientation Not on file Occupation Industry Job Start Date Job End Date Not on file Not on file Not on file Not on file documented as of this encounter Plan of Treatment Not on file documented as of this encounter Results * MAMMO DIGITAL SCREEN UNI LEFT (12/23/2014 11:30 AM CASHIER GENERAL) Anatomical Region Laterality Modality Breast Left Mammography Narrative 12/24/2014 1:37 PM CASHIER GENERAL Left Mammogram Reason for Exam: Screening Comparison: [...] mammogram documented in this encounter Care Teams Fence Installer Foreman Relationship Specialty Start Date End Date Ilda Hicks APN [address] [address] PCP - General 03/29/08 documented as of this encounter
--- OUTSIDE RECORDS SUMMARY | 2024-11-19 10:30 | XMS_ITS | Encounter Summary ---
Author Organization [facility] Address [address] [place] [address] Care Team Providers Care Table Setter Name Role Phone Hicks, Ilda Forbes APN Primary Care Provider [phone] Encounter Details Date Type Department Care Team (Late st Contact Info) Description 04/11/2009 Ancillary Orders [facility] [address] [facility] [address] [place] [address] Judson Yang MD NO ADDRESS ON FILE Lump or Mass in Breast Social History Tobacco Use Types Packs/Day Years Used Date Smoking Tobacco: Never Alcohol Use Standard Drinks/Week Comments No 0 (1 standard drink = 0.6 oz pur e alcohol) Comments No Sex and Gender Information Value Date Recorded Sex Assigned at Not on file Legal Sex Female 2:47 AM MFTS Gender Identity Not on file Sexual Orientation Not on file documented as of this encounter Plan of Treatment Not on file documented as of this encounter Results * MAMMO BREAST US RT (04/11/2009 10:25 AM MFTS) Anatomical Region Laterality Modality Breast Right Ultrasound Narrative 04/11/2009 3:04 PM MFTS For full report, please see diagnostic mammogram of 04/11/2009. Procedure Note Azbe Aranda MD - 04/16/2009 For full report, please see diagnostic mammogram of 04/11/2009. us Judson Yang MD MAMMO ORDERABLES Final Res ult documented in this encounter Visit Diagnoses Diagnosis Lump or mass in breast Lump or mass in breast documented in this encounter Care Teams Table Setter Relationship Specialty Start Date End Date Ilda Hicks APN [address] [place] [address] PCP - General 03/29/08 documented as of this encounter
--- OUTSIDE RECORDS SUMMARY | 2024-11-19 10:30 | XMS_ITS | Encounter Summary ---
Author Organization [facility] Address [address] [place] [address] Care Team Providers Care Tin Pourer Name Role Phone Hicks, Ilda Forbes APN Primary Care Provider [phone] Encounter Details Date Type Department Care Team (Late st Contact Info) Description 06/27/2007 Outpatient Historical [facility] [address] [place] [address] [place] [address] Judson Yang MD NO ADDRESS ON FILE Social History Tobacco Use Types Packs/Day Years Used Date Smoking Tobacco: Never Assessed Comments Unknown Sex and Gender Information Value Date Recorded Sex Assigned at Not on file 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 Sex Female 2:47 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 AND MOTOR HOMES Gender Identity Not on file Sexual Orientation [...] CDT) RBC 4.55 4.20 - 5.40 Mil/ul [facility] LYMPHOCYTES 22.8(L) 24.0 - 44.0 % [facility] MCHC 32.6 30.0 - 35.0 g/dL [facility] LYMPHOCYTE ABSOLUTE 1.8 1.2 - 4.0 K/ul [facility] MCV 84.4 84.0 - 103.0 Fl [facility] MPV 11.2 8.9 - 12.8 Fl [facility] BASOPHILS ABSOLUTE 0.1 0.0 - 0.2 K/ul [facility] BASOPHILS 0.6 0.0 - 1.0 % [facility] HEMOGLOBIN 12.5 12.0 - 16.0 g/dL [facility] RDW 14.5 11.0 - 14.5 % [facility] MONOCYTE ABSOLUTE 0.6 0.1 - 0.6 K/ul [facility] MONOCYTES 8.1 2.0 - 10.0 % [facility] WBC 8.0 4.8 - 10.8 K/ul [facility] MCH 27.5 27.0 - 34.0 pg [facility] NEUTROPHIL ABSOLUTE 5.3 2.0 - 8.0 K/ul [facility] NEUTROPHILS 66.6 42.2 - 75.2 % [facility] HEMATOCRIT 38.4 36.0 - 46.0 % [facility] EOSINOPHILS 1.9 0.0 - 7.0 % [facility] PLATELETS 380 140 - 440 K/ul [facility] EOSINOPHIL ABSOLUTE 0.2 0.0 - 0.7 K/ul [facility] Blood specimen (specimen) 06/27/2007 3:35 PM CDT 06/27/2007 4:04 PM CDT us Judson Yang MD HEMATOLOGY ORDERABLES Marilin flores Result [facility] CLIA# [id number] [address] [place] [address] * COMPREHENSIVE METABOLIC PANEL (06/27/2007 3:35 PM CDT) ALBUMIN 4.2 3.5 - 5.0 g/dL [facility] POTASSIUM 3.8 3.5 - 5.0 mEq/L [facility] GLOBULIN (CALC) 3.4 2.4 - 3.9 g/dL [facility] CREATININE 0.8 0.7 - 1.2 mg/dL [facility] CALCIUM 9.6 8.4 - 10.5 mg/dL [facility] OSMOLALITY, CALCULATED 284 275 - 295 mOsm/Kg [facility] ALT 15 4 - 36 IU/L [facility] GLUCOSE 87 70 - 110 mg/dL [facility] CHLORIDE 105 95 - 110 mEq/L [facility] ALBUMIN/GLOBULIN RATIO 1.2 1.0 - 2.3 [facility] ALKALINE PHOSPHATASE 79 25 - 100 U/L [facility] SODIUM 138 136 - 145 mEq/L [facility] BILIRUBIN TOTAL 0.3 0.3 - 1.2 mg/dL [facility] TOTAL PROTEIN 7.6 6.3 - 8.2 g/dL [facility] BUN 15 7 - 17 mg/dL [facility] AST 19 8 - 33 U/L [facility] CO2 25 22 - 32 mmol/l [facility] ANION GAP 12 9 - 20 mEq/L [facility] Blood specimen (specimen) 06/27/2007 3:35 PM CDT 06/27/2007 4:04 PM CDT us Judson Yang MD CHEMISTRY ORDERABLES Final Result [facility] CLIA# [id number] [address] [place] [address] documented in this encounter Visit Diagnoses Not on filedocumented in this encounter Care Teams Tin Pourer Relationship Specialty Start Date End Date Kurt, Ilda Forebs APN [facility] [address] [address] PCP - General 03/29/08 documented as of this encounter
--- OUTSIDE RECORDS SUMMARY | 2024-11-19 10:30 | XMS_ITS | Encounter Summary ---
Author Organization [facility] Address [address] [place] [address] Care Team Providers Care Rental Boats Caretaker Name Role Phone Hicks, Ilda Forbes APN Primary Care Provider [phone] Encounter Details Date Type Department Care Team (Late st Contact Info) Description 06/23/2007 Outpatient Historical [facility] IN BED Judson Yang MD NO ADDRESS ON FILE Unspecified Essential Hypertension Social History Tobacco Use Types Packs/Day Years Used Date Smoking Tobacco: Never Assessed Comments Unknown Sex and Gender Information Value Date Recorded Sex Assigned at Not on file Legal Sex Female 2:47 AM INSPECTOR PUBLICATIONS Gender Identity Not on file Sexual Orientation [...] GLUCOSE POC 141(H) 60 - 100 mg/dL [facility] Venous blood specimen (specimen) 06/29/2007 5:46 AM CDT 06/30/2007 5:22 AM CDT Judson Yang MD POINT OF CARE TESTING Marilin l Result Performing Organization Address City/[facility] Co de Phone Number [facility] CLIA# [id number] [address] [place] [address] * (ABNORMAL) POC GLUCOSE (06/29/2007 12:10 AM CDT) GLUCOSE POC 171(H) 60 - 100 mg/dL [facility] Venous blood specimen (specimen) 06/29/2007 12:10 AM CDT 06/30/2007 5:22 AM CDT Judson Yang MD POINT OF CARE TESTING Marilin l Result Performing Organization Address [facility] Co de Phone Number [facility] CLIA# [id number] [address] [place] [address] * (ABNORMAL) POC GLUCOSE (06/28/2007 6:38 PM CDT) GLUCOSE POC 178(H) 60 - 100 mg/dL [facility] COMMENT POC Follow Protocol [facility] Venous blood specimen (specimen) 06/28/2007 6:38 PM CDT 06/29/2007 12:44 AM CDT Judson Yang MD POINT OF CARE TESTING Marilin l Result Performing Organization Address City/[facility] Co de Phone Number [facility] CLIA# [id number] [address] [place] [address] * (ABNORMAL) POC GLUCOSE (06/28/2007 2:02 PM CDT) GLUCOSE POC 109(H) 60 - 100 mg/dL [facility] Venous blood specimen (specimen) 06/28/2007 2:02 PM CDT 06/29/2007 1:13 AM CDT Judson Yang MD POINT OF CARE TESTING Marilin flores Result [facility] CLIA# [id number] [address] [place] [address] * PATHOLOGY (06/28/2007 8:22 AM CDT) PATHOLOGY/CYT OLOGY REPORT [facility] Anatomic Pathology Dept [address] [place] [address] Patient: KASSI RODRIGUEZ Accn No: [id number] Collected: 06/28/2007 8:22:00 AM SURGICAL PATHOLOGY FINAL [...] obtained on previous needle core biopsies [id number] and showed: ER: 0%, unfavorable [place]: 0%, unfavorable Her2/humberto: 0, normal limit Ki-67: [...] (10 o'clock from previous needle core biopsy [id number]) Time in Formalin Between 6 and 48 Hours (Yes/No): Yes. PCR/TKB INTERFACE SYSTEM 06/28/2007 8:22 AM CDT us Judson Yang MD PATHOLOGY/CYTOLOGY ORDERAB LES Final Result INTERFACE SYSTEM Refer to clinic/hospital department documented in this encounter Visit Diagnoses Diagnosis Unspecified essential hypertension documented in this encounter Care Teams Rental Boats Caretaker Relationship Specialty Start Date End Date Ilda Hicks APN [address] [place] [address] PCP - General 03/29/08 documented as of this encounter
--- OUTSIDE RECORDS SUMMARY | 2024-11-19 10:30 | XMS_ITS | Encounter Summary ---
Author Organization [facility] Address [address] [place] [address] Care Team Providers Care Upholstery Trimmer Name Role Phone Hicks, Ilda Forbes CARMINE Primary Care Provider [phone] Encounter Details Date Type Department Care Team (Late st Contact Info) Description 06/14/2007 Outpatient Historical [facility] [address] [place] [phone] Judson Yang MD NO ADDRESS ON FILE Social History Tobacco Use Types Packs/Day Years Used Date Smoking Tobacco: Never Assessed Comments Unknown Sex and Gender Information Value Date Recorded Sex Assigned at Not on file Legal Sex Female 2:47 AM POLYMER MATERIALS CONSULTANT Gender Identity Not on file Sexual [...] entirety in this patient's records on the [employer] system. [place] is referred to that document. Dictated By: Nae Lowe M.D. Electronically Signed By: Nae Lowe M.D. Date Signed: 06/18/07 Procedure Note Nae Lowe - 06/18/2007 ATTENTION: The findings of this examination are reported in theirentirety in this patient's records on the [employer] system. [place] is referred to that document. Dictated By: Nae Lowe M.D. Electronically Signed By: Nae Lowe M.D. Date Signed: 06/18/07 us Judson Yang MD MR ORDERABLES Final Resu lt documented in this encounter Visit Diagnoses Not on filedocumented in this encounter Care Teams Upholstery Trimmer Relationship Specialty Start Date End Date Kurt, Ilda Forbes APN [address] [place] [address] PCP - General 03/29/08 documented as of this encounter
--- OUTSIDE RECORDS SUMMARY | 2024-11-19 10:30 | XMS_ITS | Encounter Summary ---
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) Procedures MAMMO DIGITAL DIAG UNI LEFT Judson Yang MD NO ADDRESS ON FILE Referral ID Status Reason Start Date Expiration Date Visits Re quested Visits Authorized [id number] Closed 08/11/2009 02/07/2010 1 1 Encounter Details Date Type Department Care Team (Late st Contact Info) Description 08/11/2009 Ancillary Orders [facility] Gen Spec Surg [facility] [address] [place] [address] Judson Yang MD NO ADDRESS ON FILE [...] on file 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 Ultrasound of the left breast [...] analyzed by the Computer Aided DetectionSystem (CAD), [employer]er, Version 8.3. Ultrasound of the left [...] breast documented in this encounter Care Teams Denture Contour Wire Specialist Relationship Specialty Start Date End Date Ilda Hicks APN [address] [place] [address] PCP - General 03/29/08 documented as of this encounter
--- OUTSIDE RECORDS SUMMARY | 2024-11-19 10:30 | XMS_ITS | Encounter Summary ---
Author Organization [facility] Address [address] [place] [address] Care Team Providers Care Stack Clerk Name Role Phone Hicks, Ilda Forbes APN Primary Care Provider [phone] Reason for Referral * Outpatient Services (Routine) - Closed Specialty Diagnoses / Procedures Referred By Kaya beltran Referred To Contact Diagnoses Other screening mammogram Procedures MAMMO DIGITAL SCREEN UNI LEFT Jesenia Dubois MD NO ADDRESS ON FILE Referral ID Status Reason Start Date Expiration Date Visits Re quested Visits Authorized [id number] Closed 09/29/2010 09/29/2011 1 1 Encounter Details Date Type Department Care Team (Latest Contact Info) Description 09/29/2010 Ancillary Orders [facility] Pre-Registration [place] CALL TO MAKE APPOINTMENT ONLY [address] [place] [address] Jesenia Dubois MD NO ADDRESS ON FILE Other screening mammogram Social History Tobacco Use Types Packs/Day Years Used Date Smoking Tobacco: Never Alcohol Use Standard Drinks/Week Comments No 0 (1 standard drink = 0.6 oz pur e alcohol) Comments No Sex and Gender Information Value Date Recorded Sex Assigned at Not on file Legal Sex Female 2:47 AM FINANCE AND ADMINISTRATION MANAGER Gender Identity Not on file Sexual [...] mammogram documented in this encounter Care Teams Stack Clerk Relationship Specialty Start Date End Date Ilda Hicks APN [facility] [address] [address] PCP - General 03/29/08 documented as of this encounter
--- OUTSIDE RECORDS SUMMARY | 2024-11-19 10:30 | XMS_ITS ---
Author Organization [facility] Address [address] Wilder: Epic Prelude ADT [place] [address] Care Team Providers Care Merchant Mill Utility Worker Name Role Phone Ilda Hicks APN Primary Care Provider [phone] Active Problems Problem Noted Date Diagnosed Date [...]
--- OUTSIDE RECORDS SUMMARY | 2024-11-19 10:30 | XMS_ITS | Encounter Summary ---
Author Organization [facility] Address [address] [place] [address] Care Team Providers Care Retail Reset Merchandiser Name Role Phone Ilda Hicks CARMINE Primary Care Provider [phone] Encounter Details Date Type Department Care Team (Late st Contact Info) Description 01/05/2008 Outpatient Historical [facility] [address] [place] [address] Judson Yang MD NO ADDRESS ON FILE Social History Tobacco Use Types Packs/Day Years Used Date Smoking Tobacco: Never Assessed Comments Unknown Sex and Gender Information Value Date Recorded Sex Assigned at Not on file Legal Sex Female 2:47 AM PATTERNATOR Gender Identity Not on file Sexual Orientation Not on file documented as of this encounter Plan of Treatment Not on file documented as of this encounter Procedures Procedure Name Priority Date/Time Associated Diagnosis Comments PATHOLOGY Routine 01/05/2008 5:48 AM PATTERNATOR documented in this encounter Results * PATHOLOGY (01/05/2008 5:48 AM PATTERNATOR) PATHOLOGY/CYT OLOGY REPORT [facility] Anatomic Pathology Dept [address] [facility] [address] Patient: KASSI SUÁREZ Accn No: [id number] Collected: 01/05/2008 5:48:00 AM SURGICAL PATHOLOGY FINAL [...] the back along with the serial number [id number]. The attached plastic tubing measures 20 cm in length. The specimen is submitted for gross only. DLS/WLS INTERFACE SYSTEM 01/05/2008 5:48 AM PATTERNATOR us Judson Yang MD PATHOLOGY/CYTOLOGY ORDERAB LES Final Result INTERFACE SYSTEM Refer to clinic/hospital department documented in this encounter Visit Diagnoses Not on filedocumented in this encounter Care Teams Retail Reset Merchandiser Relationship Specialty Start Date End Date Ilda Hicks APN [facility] [address] [address] PCP - General 03/29/08 documented as of this encounter
--- OUTSIDE RECORDS SUMMARY | 2024-11-19 10:30 | XMS_ITS | Encounter Summary ---
Author Organization [facility] Address [address] [place] [address] Care Team Providers Care Slurry Man Name Role Phone Ilda Hicks APN Primary Care Provider [phone] Encounter Details Date Type Department Care Team ([facility] st Contact Info) Description 10/21/2005 Outpatient Historical [facility] [address] [place] [address] Oswald Beltrná MD [address] [place] [address] Contact Dermatitis and Other Eczema, due to Unspecified Cause (Primary Dx) Social History Tobacco Use Types Packs/Day Years Used Date Smoking Tobacco: Never Assessed Comments Unknown Sex and Gender Information Value Date Recorded Sex Assigned at Not on file Legal Sex Female 2:47 AM TREE SPECIALIST Gender Identity Not on file Sexual Orientation Not on file documented as of this encounter Plan of Treatment Not on file documented as of this encounter Visit Diagnoses Diagnosis Contact dermatitis and other eczema, due to unspecified cause- Primary documented in this encounter Care Teams Slurry Man Relationship Specialty Start Date End Date Ilda Hicks APN [facility] [place] [address] PCP - General 03/29/08 documented as of this encounter
--- OUTSIDE RECORDS SUMMARY | 2024-11-19 10:30 | XMS_ITS | Encounter Summary ---
Author Organization 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 On the anterior and TONGAN dynamic images, the size and shape of [...] are unremarkable and show no significant change. [facility] 1658 Dictated By: Nicola Kellogg M.D. Electronically Signed By: Nicola Kellogg M.D. Date Signed: 11/28/07 [facility] Procedure Note Nicola Kellogg - 11/28/2007 [...] left ventricular acquisition. On the anterior and TONGAN dynamic images, the size and shape of [...] are unremarkable and show no significant change. [facility] 1658 Dictated By: Nicola Kellogg M.D. Electronically Signed By: Nicola Kellogg M.D. Date Signed: 11/28/07 [facility] Jesenia Dubois MD NM ORDERABLES Final Result INTERFACE SYSTEM Refer to clinic/hospital department documented in this encounter Visit Diagnoses Diagnosis Malignant neoplasm of upper-outer quadrant of female breast (CMS/HCC) Malignant neoplasm of upper-outer quadrant of female breast documented in this encounter Care Teams Eligibility Examiner Relationship Specialty Start Date End Date Ilda Hicks APN [facility] [address] [address] PCP - General 03/29/08 documented as of this encounter
--- OUTSIDE RECORDS SUMMARY | 2024-11-19 10:30 | XMS_ITS | Encounter Summary ---
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
--- OUTSIDE RECORDS SUMMARY | 2024-11-19 10:30 | XMS_ITS | Encounter Summary ---
Author Organization [facility] Address [address] [place] [address] Care Team Providers Care Small Boat Engineer Name Role Phone Ilda Hicks APN Primary Care Provider [phone] Encounter Details Date Type Department Care Team (Latest Contact Info) Description 02/20/2003 Outpatient Historical [facility] [address] [facility] [address] [place] [address] Nae Lowe MD NO ADDRESS ON FILE SYMPTOMS IN BREAST NEC (Primary Dx) Social History Tobacco Use Types Packs/Day Years Used Date Smoking Tobacco: Never Assessed Comments Unknown Sex and Gender Information Value Date Recorded Sex Assigned at Not on file Legal Sex Female 2:47 AM 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
--- OUTSIDE RECORDS SUMMARY | 2024-11-19 10:30 | XMS_ITS | Encounter Summary ---
Author Organization [facility] Address [address] [place] [address] Care Team Providers Care Mold Release Worker Name Role Phone Ilda Hicks APN Primary Care Provider [phone] Encounter Details Date Type Department Care Team (Late st Contact Info) Description 02/25/2003 Outpatient Historical [facility] Gen Spec [facility]urg [facility] [address] [place] [address] Judson Yang MD NO ADDRESS ON FILE SOLITARY CYST OF BREAST (Primary Dx) Social History Tobacco Use Types Packs/Day Years Used Date Smoking Tobacco: Never Assessed Comments Unknown Sex and Gender Information Value Date Recorded Sex Assigned at Not on file 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 [address] PCP - General 03/29/08 documented as of this encounter
--- OUTSIDE RECORDS SUMMARY | 2024-11-19 10:30 | XMS_ITS | Encounter Summary ---
Author Organization [facility] Address [address] [place] [address] Care Team Providers Care Staff Radiation Therapist Name Role Phone Ilda Hicks APN Primary Care Provider [phone] Encounter Details Date Type Department Care Team (Late st Contact Info) Description 10/20/1999 Outpatient Historical [facility] Theodore Homer [address] [place] [address] Azeb Aranda MD NO ADDRESS ON FILE Family history of malignant neoplasm of breast (Primary Dx); Screening mammogram for high-risk patient Social History Tobacco Use Types Packs/Day Years Used Date Smoking Tobacco: Never Assessed Comments Unknown Sex and Gender Information Value Date Recorded Sex Assigned at Not on file 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 [address] PCP - General 03/29/08 documented as of this encounter
--- OUTSIDE RECORDS SUMMARY | 2024-11-19 10:30 | XMS_ITS ---
Author Organization [facility] Address [address] [place] [address] Care Team Providers Care Vigoureux Printer Name Role Phone Ilda Hicks CARMINE Primary Care Provider Active Problems Problem Noted Date Diagnosed Date [...]
--- OUTSIDE RECORDS SUMMARY | 2024-11-19 10:30 | XMS_ITS | Encounter Summary ---
Author Organization [facility] Address [address] [place] [address] Care Team Providers Care Light Industrial Supervisor Name Role Phone Ilda Hicks APN [...] on file Legal Sex Female 2:47 AM E LEARNING MANAGER Gender Identity Not on file Sexual Orientation Not on file documented as of this encounter Plan of Treatment Not on file documented as of this encounter Visit Diagnoses Diagnosis Other (abnormal) findings on radiological examination of breast- Primary documented in this encounter Care Teams Light Industrial Supervisor Relationship Specialty Start Date End Date Ilda Hicks APN [address] [facility] [address] [place] [address] PCP - General 03/29/08 documented as of this encounter
--- OUTSIDE RECORDS SUMMARY | 2024-11-19 10:30 | XMS_ITS | Encounter Summary ---
Author Organization [facility] Address [address] [place] [address] Care Team Providers Care Military Administrative Technician Name Role Phone Ilda Hicks APN Primary Care Provider [phone] Encounter Details Date Type Department Care Team (Latest Contact Info) Description 05/31/2001 Outpatient Historical [facility] Radha, Dimas Wright MD [address] [address] ABDOMINAL PAIN RUQ (Primary Dx); CHOLELITHIASIS NOS Social History Tobacco Use Types Packs/Day Years Used Date Smoking Tobacco: Never Assessed Comments Unknown Sex and Gender Information Value Date Recorded Sex Assigned at Not on file Legal Sex Female 2:[address] 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
--- OUTSIDE RECORDS SUMMARY | 2024-11-19 10:30 | XMS_ITS | Encounter Summary ---
Author Organization [facility] Address [address] [place] [address] Care Team Providers Care Hydro Station Supervisor Name Role Phone Hicks, Ilda Forbes APN Primary Care Provider [phone] Reason for Referral * Outpatient Services (Routine) - Closed Specialty Diagnoses / Procedures Referred By Kaya beltran Referred To Contact Diagnoses Other screening mammogram Procedures MAMMO DIGITAL SCREEN UNI LEFT Jesenia Dubois MD NO ADDRESS ON FILE [employer] [facility] Pre-Registration [place] CALL TO MAKE APPOINTMENT ONLY [address] [facility] [place] [address] Phone: tel: fax: Referral ID Status Reason Start Date Expiration Date V isits Requested Visits Authorized [id number] Closed [facility] 10/12/2011 10/11/2012 1 1 Encounter Details Date Type Department Care Team (Latest Contact Info) Description 10/12/2011 Ancillary Orders [facility] Pre-Registration [place] CALL TO MAKE APPOINTMENT ONLY [address] [place] [address] Jesenia Dubois MD NO ADDRESS ON FILE Other screening mammogram Social History Tobacco Use Types Packs/Day Years Used Date Smoking Tobacco: Never Alcohol Use Standard Drinks/Week Comments No 0 (1 standard drink = 0.6 oz pur e alcohol) rare Comments No Sex and Gender Information Value Date Recorded Sex Assigned at Not on file 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 [address] PCP - General 03/29/08 documented as of this encounter
--- OUTSIDE RECORDS SUMMARY | 2024-11-19 10:30 | XMS_ITS | Encounter Summary ---
Author Organization [facility] Address [address] [place] [address] Care Team Providers Care Distribution Agent Name Role Phone Hicks, Ilda Forbes APN Primary Care Provider [phone] Encounter Details Date Type Department Care Team (Late st Contact Info) Description 04/10/2009 Ancillary Orders [facility] [address] [facility] [address] [place] [address] Judson Yang MD NO ADDRESS ON FILE Lump or Mass in Breast Social History Tobacco Use Types Packs/Day Years Used Date Smoking Tobacco: Never Alcohol Use Standard Drinks/Week Comments No 0 (1 standard drink = 0.6 oz pur e alcohol) Comments No Sex and Gender Information Value Date Recorded Sex Assigned at Not on file Legal Sex Female 2:47 AM SOCIAL SECURITY ASSESSOR Gender Identity Not on file Sexual Orientation Not on file documented as of this encounter Plan of Treatment Not on file documented as of this encounter Results * MAMMO UNILATERAL DIAG RIGHT (04/11/2009 10:40 AM SOCIAL SECURITY ASSESSOR) Anatomical Region Laterality Modality Breast Right Mammography Impressions 04/11/2009 3:04 PM SOCIAL SECURITY ASSESSOR : Right breast MRI is recommended to evaluate the findings on recent PET/CT scan. If that exam is not performed I would recommend a six-month follow-up ultrasound. Narrative 04/11/2009 3:04 PM SOCIAL SECURITY ASSESSOR RIGHT DIAGNOSTIC MAMMOGRAM: The patient is status [...] breast documented in this encounter Care Teams Distribution Agent Relationship Specialty Start Date End Date Kurt, Ilda Forbes APN [address] [place] [address] PCP - General 03/29/08 documented as of this encounter
--- OUTSIDE RECORDS SUMMARY | 2024-11-19 10:30 | XMS_ITS | Clinical Summary ---
Author Organization [facility] Address [address] [place] [address] Care Team Providers Care Sandfill Operator Surface Name Role Phone Hicks Ilda Forbes APN Primary Care Provider [phone] Allergies Active Allergy Reactions Criticality Noted Date [...] on file Legal Sex Female 2:47 AM TRAIN EXAMINER Gender Identity Not on file Sexual Orientation Not on file Occupation Industry Job Start Date Job End Date Not on file Not on file Not on file Not on file Last Filed Vital Signs Vital Sign Reading Time Taken Comments Blood Pressure 148/86 04/18/2018 3:57 PM TRAIN EXAMINER Pulse 84 04/18/2018 3:57 PM TRAIN EXAMINER Temperature 36 C (96.8 F) 09/13/2017 5:00 PM CDT Respiratory Rate 12 09/13/2017 4:40 PM CDT Oxygen Saturation 95% 09/13/2017 5:30 PM CDT Inhaled Oxygen Concentration - - Weight 78.5 kg (173 lb) 04/18/2018 3:57 PM TRAIN EXAMINER Height 154.9 cm (5' 1 ) 04/18/2018 3:57 PM TRAIN EXAMINER Body Mass Index 32.69 04/18/2018 3:57 PM TRAIN EXAMINER Plan of Treatment Health Maintenance Due Date [...] series) 2025 Medical Devices Implanted Type Area Director Of Program Management Device Identifier Shelf Expiration Date Model / Serial / Lot Log [id number] - Mesh Ethicon Hernia - 1 - Mesh Proceed [id number] Pcdg1 Implanted:Qty: 1 on 05/15/2009 at [facility] Mesh N/A: Abdomen J&J- ETHICON INC 09/14/2010 PCDG1 / / [id number] Plate Dvr Nrw Loc Rt 1318-11-050 - [id number] Implanted:Qty: 1 on 09/13/2017 by Chet Russell MD at [facility] Plate Right: Wrist VIC BIOMET [id number] / / Screw Dvr Loc 2.7x22mm 1312-27-122 - [id number] Implanted:Qty: 1 on 09/13/2017 by Chet Russell MD at [facility] Screw Right: Wrist VIC BIOMET 1312-27-122 / / [id number] Screw Dvr Loc 2.7x22mm 131--122 - [id number] Implanted:Qty: 1 on 09/13/2017 by Chet Russell MD at [facility] Screw Right: Wrist VIC BIOMET 1312-27-122 / / [id number] Screw Dvr Loc 2.7x20mm 1312-27-120 - [id number] Implanted:Qty: 1 on 09/13/2017 by Chet Russell MD at [facility] Screw Right: Wrist VIC BIOMET 1312-27-120 / / [id number] Screw Dvr Loc 2.7x20mm 1312-27-120 - [id number] Implanted:Qty: 1 on 09/13/2017 by Chet Russell MD at [facility] Screw Right: Wrist VIC BIOMET 1312-27-120 / / [id number] Screw Dvr Loc 2.7x14mm 131--114 - [id number] Implanted:Qty: 1 on 09/13/2017 by Chet Russell MD at [facility] Screw Right: Wrist VIC BIOMET 1312-27-114 / / [id number] Allgrft Vivigen Matrix 5ml Bl-1600-002 - [id number] Implanted:Qty: 1 on 09/13/2017 by Chet Russell MD at [facility] Tissue Right: Wrist LIFENET 01/12/2018 BL-1600-002 / / [id number] Description:[id number] Screw 2.7x12 [id number] Implanted:Qty: 1 on 09/13/2017 by Chet Russell MD at [facility] Right: Wrist 09/13/2018 BIOMET - [id number] / / [id number] Screw 2.7x12 [id number] Implanted:Qty: 1 on 09/13/2017 by Chet Russell MD at [facility] Right: Wrist 09/13/2018 BIOMET - [id number] / / [id number] 2.7x16 Screw [id number] Implanted:Qty: 1 on 09/13/2017 by Chet Russell MD at [facility] Right: Wrist 09/13/2018 BIOMET - SCREW / / [id number] Explanted Type Area Director Of Program Management Device Identifier Shelf Expiration Date Model / Serial / Lot Wire K Ss 1.6mm [id number] - [id number] Explanted:Qty: 1 on 09/13/2017 at [facility] Wire Right: Hand VIC BIOMET [id number] / / [id number] Wire K Ss 1.6mm [id number] - [id number] Explanted:Qty: 1 on 09/13/2017 at [facility] Wire Right: Hand VIC BIOMET [id number] / / [id number] Wire K Ss 1.6mm [id number] - [id number] Explanted:Qty: 1 on 09/13/2017 at [facility] Wire Right: Hand VIC BIOMET [id number] / / [id number] Locking Smooth Peg 202, 18 [id number] Implanted:2017 by Chet Russell MD (Quantity not on file) Explanted:Qty: 1 on 09/13/2017 at [facility] Right: Wrist 08/14/2018 BIOMET - [id number] / / [id number] Locking Smooth Peg 202, 18 [id number] Implanted:2017 by Chet Russell MD (Quantity not on file) Explanted:Qty: 1 on 09/13/2017 at [facility] Right: Wrist 08/14/2018 BIOMET - [id number] / / [id number] Procedures Procedure Name Priority Date/Time Associated Diagnosis Comments MAMMO SCRN UNI LEFT W OR WO CAD Routine 12/23/2014 11:30 AM TRAIN EXAMINER Visit for screening mammogram from Last 3 Months or Most Recently Relevant to Health Maintenance Results * MAMMO DIGITAL SCREEN UNI LEFT (12/23/2014 11:30 AM TRAIN EXAMINER) Anatomical Region Laterality Modality Breast Left Mammography Narrative 12/24/2014 1:37 PM TRAIN EXAMINER Left Mammogram Reason for Exam: Screening Comparison: [...] Maintenance Insurance [address] [place] [address] RX [facility] Medicare Part D RX INFOCROSSING Medicaid MEDICARE PART A AND B MEDICAID [place] Advance Directives For more information, please contact: [phone] * Full Code (Latest Code Status on [...] 10:13 AM 05/15/2009 10:44 AM Care Teams Sandfill Operator Surface Relationship Specialty Start Date End Date Ilda Hicks APN [address] [address] PCP - General 03/29/08
--- OUTSIDE RECORDS SUMMARY | 2024-11-19 10:30 | XMS_ITS | Clinical Summary ---
Author Organization [facility] Address [address] Wilder: Epic Prelude ADT [place] [address] Care Team Providers Care Darkroom Worker Name Role Phone Hicks, Ilda Forbes APN Primary Care Provider Allergies Active Allergy Reactions Criticality Noted Date [...] 7 days. 8 Capsule 12/24/2022 2:40 PM SPRING ASSEMBLER SUPERVISOR 3 Active docusate sodium (Colace) 100 mg capsule Take 1 Capsule (100 mg) by mouth 2 times daily. 60 Capsule 12/24/2022 2:40 PM SPRING ASSEMBLER SUPERVISOR 3 Active famotidine (PEPCID) 20 mg tablet Take 1 Tablet (20 mg) by mouth 2 times daily. 80 Tablet 12/24/2022 2:40 PM SPRING ASSEMBLER SUPERVISOR 3 Active tiZANidine (ZANAFLEX) 4 mg Tablet Take 1 Tablet (4 mg) by mouth every 6 hours as needed for Spasm. 30 Tablet 12/24/2022 2:40 PM SPRING ASSEMBLER SUPERVISOR 3 Active naloxone (NARCAN) 4 mg/spray [facility], Non-Aerosol EMERGENCY USE ONLY: Administer 1 spray (4 mg) in one nostril one time. May repeat in alternating nostrils every 2-3 min until responsive or EMS arrives. 2 Each 3 12/24/2022 2:40 PM SPRING ASSEMBLER SUPERVISOR 3 Active Active Problems Problem Noted Date [...] on file Legal Sex Female 1:35 PM SPRING ASSEMBLER SUPERVISOR Gender Identity Not on file Sexual Orientation Not on file Last Filed Vital Signs Vital Sign Reading Time Taken Comments Blood Pressure 142/82 02/01/2024 10:58 AM SPRING ASSEMBLER SUPERVISOR Pulse 71 01/19/2023 9:52 AM SPRING ASSEMBLER SUPERVISOR Temperature 36.2 C (97.2 F) 12/24/2022 12:12 PM SPRING ASSEMBLER SUPERVISOR Respiratory Rate 16 12/24/2022 12:12 PM SPRING ASSEMBLER SUPERVISOR Oxygen Saturation 98% 12/24/2022 12:12 PM SPRING ASSEMBLER SUPERVISOR Inhaled Oxygen Concentration - - Weight 77.2 kg (170 lb 3.2 oz) 02/01/2024 10:58 AM SPRING ASSEMBLER SUPERVISOR Height 149.9 cm (4' 11 ) 02/01/2024 10:58 AM SPRING ASSEMBLER SUPERVISOR Body Mass Index 34.38 02/01/2024 10:58 AM SPRING ASSEMBLER SUPERVISOR Plan of Treatment Health Maintenance Due Date [...] series) 2025 Medical Devices Implanted Type Area Wood And Wood Products Factory Worker Device Identifier Shelf Expiration Date Model / Serial / Lot Comp Fem Attune Poro Cr Sz 4 Rt Cmntlss 1504-01-204 - [id number] Implanted:Qty: 1 on 12/23/2022 by Thomas Franco MD at [facility] Knee Right: Knee J&J- [employer] [id number] 07/15/2031 [id number] / / [id number] Log [id number] - Mesh Ethicon Hernia - 1 - Mesh Proceed [id number] Pcdg1 Implanted:Qty: 1 on 05/15/2009 Mesh N/A: Abdomen J&J- ETHICON INC 09/14/2010 PCDG1 / / [id number] Plate Dvr Nrw Loc Rt 1318-11-050 - [id number] Implanted:Qty: 1 on 09/13/2017 by Chet Russell MD Plate Right: Wrist VIC BIOMET [id number] / / Screw Dvr Loc 2.7x14mm 1312-27-114 - [id number] Implanted:Qty: 1 on 09/13/2017 by Chet Russell MD Screw Right: Wrist VIC BIOMET 1312-27-114 / / [id number] Screw Dvr Loc 2.7x20mm 131-120 - [id number] Implanted:Qty: 1 on 09/13/2017 by Chet Russell MD Screw Right: Wrist VIC BIOMET 1312-27-120 / / [id number] Screw Dvr Loc 2.7x20mm [facility]-120 - [id number] Implanted:Qty: 1 on 09/13/2017 by Chet Russell MD Screw Right: Wrist VIC BIOMET 1312--120 / / [id number] Screw Dvr Loc 2.7x22mm [facility] - [id number] Implanted:Qty: 1 on 09/13/2017 by Chet Russell MD Screw Right: Wrist VIC BIOMET 13104-12-122 / / [id number] Screw Dvr Loc 2.7x22mm [facility] - [id number] Implanted:Qty: 1 on 09/13/2017 by Chet Russell MD Screw Right: Wrist VIC BIOMET 131227-122 / / [id number] Allgr Vivigen Matrix 5ml -1600-002 - [id number] Implanted:Qty: 1 on 09/13/2017 by Chet Russell MD Tissue Right: [facility] 01/12/2018 BL-1600-002 / / [id number] Description:[id number] 2.7x16 Screw [id number] Implanted:Qty: 1 on 09/13/2017 by Chet Russell MD Right: Wrist 09/13/2018 BIOMET - SCREW / / [id number] Screw 2.7x12 [id number] Implanted:Qty: 1 on 09/13/2017 by Chet Russell MD Right: Wrist 09/13/2018 BIOMET - [id number] / / [id number] Screw 2.7x12 [id number] Implanted:Qty: 1 on 09/13/2017 by Chet Russell MD Right: Wrist 09/13/2018 BIOMET - [id number] / / [id number] Tibial Base Size 4 Implanted:Qty: 1 on 12/23/2022 by Thomas Franco MD at [facility] Right: Knee 10/14/2032 DEPUY-1506- 21-004 / / [id number] Tibial Insert Implanted:Qty: 1 on 12/23/2022 by Thomas Franco MD at [facility] Right: Knee 08/13/2030 DEPUY-1520- 20-408 / / [id number] Explanted Type Area Wood [employer] Wood Products Factory Worker Device Identifier Shelf Expiration Date Model / Serial / Lot Wire K Ss 1.6mm [id number] - [id number] Explanted:Qty: 1 on 09/13/2017 Wire Right: Hand VIC BIOMET [id number] / / [id number] Wire K Ss 1.6mm [id number] - [id number] Explanted:Qty: 1 on 09/13/2017 Wire Right: Hand VIC BIOMET [id number] / / [id number] Wire K Ss 1.6mm [id number] - [id number] Explanted:Qty: 1 on 09/13/2017 Wire Right: Hand VIC BIOMET [id number] / / [id number] Locking Smooth Peg 202, 18 --[id number] Implanted:08/16 by Chet Russell MD (Quantity not on file) Explanted:Qty: 1 on 09/13/2017 Right: Wrist 08/14/2018 BIOMET - [id number] / / [id number] Locking Smooth Peg 202, 18 [id number] Implanted:08/16 by Ceht Russell MD (Quantity not on file) Explanted:Qty: 1 on 09/13/2017 Right: Wrist 08/14/2018 BIOMET - [id number] / / [id number] Procedures Procedure Name Priority Date/Time Associated Diagnosis Comments MAMMO SCRN UNI LEFT W OR WO CAD Routine 12/23/2014 11:30 AM SPRING ASSEMBLER SUPERVISOR Visit for screening mammogram from Last 3 Months or Most Recently Relevant to Health Maintenance Results * MAMMO SCRN UNI LEFT W OR WO CAD (12/23/2014 11:30 AM SPRING ASSEMBLER SUPERVISOR) Anatomical Region Laterality Modality Breast Left Other Narrative 12/24/2014 1:35 PM SPRING ASSEMBLER SUPERVISOR Left Mammogram Reason for Exam: Screening Comparison: [...] Most Recently Relevant to Health Maintenance [place] [id number] * Guarantor: KASSI RODRIGUEZ Account Type Relation to Patient Date of Phone Billing Address Personal/Family [address] [place] [address] RX INFOCROSSING Medicaid RX [employer] RX Member Subscriber Plan / Payer (Ef fective 2020-Present) Name:Kassi Rodriguez Relation to Subscriber:Self Name:Kassi Rodriguez Payer ID:Not on file Group ID:[id number] Type:RX Medicare Part D Address: [place] Advance Directives For more information, please contact: [phone] * Full Code (Latest Code Status on File) Date Activated Date Inactivated Comments 12/23/2022 11:48 AM 12/24/2022 4:58 PM Care Teams Darkroom Worker Relationship Specialty Start Date End Date Hicks, Ilda Forbes APN [address] [place] [address] PCP - General 03/29/08
--- OUTSIDE RECORDS SUMMARY | 2024-11-19 10:30 | XMS_ITS | Encounter Summary ---
Author Organization [facility] Address [address] [place] [address] Care Team Providers Care Ward Service Supervisor Name Role Phone Ilda Hicks APN Primary Care Provider [phone] Encounter Details Date Type Department Care Team (Late st Contact Info) Description 12/14/2005 Outpatient Historical [facility] Dermatology- 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 [facility] [address] [place] [address] PCP - General 03/29/08 documented as of this encounter
--- OUTSIDE RECORDS SUMMARY | 2024-11-19 10:30 | XMS_ITS | Encounter Summary ---
Author Organization [facility] Address [address] [place] [address] Care Team Providers Care Restaurant Manager Name Role Phone Ilda Hicks APN Primary Care Provider [phone] Encounter Details Date Type Department Care Team (Late st Contact Info) Description 06/03/2008 Ancillary Orders [facility] [address] [place] [address] [address] [place] [phone] Jesenia Dubois MD NO ADDRESS ON FILE Screening Mammogram Social History Tobacco Use Types Packs/Day Years Used Date Smoking Tobacco: Never Alcohol Use Standard Drinks/Week Comments No 0 (1 standard drink = 0.6 oz pur e alcohol) Comments Unknown Sex and Gender Information Value Date Recorded Sex Assigned at Not on file 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
--- OUTSIDE RECORDS SUMMARY | 2024-11-19 10:30 | XMS_ITS | Encounter Summary ---
Author Organization [facility] Address [address] [place] [address] Care Team Providers Care Retail Event And Sales Assistant Name Role Phone Hicks, Ilda Forbes APN Primary Care Provider [phone] Reason for Referral * Outpatient Services (Routine) - Closed Specialty Diagnoses / Procedures Referred By Kaya beltran Referred To Contact Radiology Diagnoses Dermatomyositis (CMS/HCC) Muscle weakness of left upper extremity Procedures MRI HUMERUS W WO CONTRAST LEFT [facility] [address] [place] [address] Phone: tel: fax: [facility] [address] [place] [address] Phone: tel: fax: Referral ID Status Reason Start Date Expiration Date Visits Re quested Visits Authorized [id number] Closed 09/22/2009 12/21/2009 1 1 Encounter Details Date Type Department Care Team (Latest Contact Info) Description 09/16/2009 Ancillary Orders [facility] MRI [address] [place] [address] Tariq, External Provider [address] [place] [address] Dermatomyositis (CMS/HCC); Muscle Weakness of Left Upper Extremity Social History Tobacco Use Types Packs/Day Years Used Date Smoking Tobacco: Never Alcohol Use Standard Drinks/Week Comments No 0 (1 standard drink = 0.6 oz pur e alcohol) Comments No Sex and Gender Information Value Date Recorded Sex Assigned at Not on file 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 [email or web address] - uploaded from [email or web address] 09/29/2009 12:15 PM CDT Exam: MRI HUMERUS [...] appropriate in signal. susana - uploaded from [email or web address]- us External Provider [facility] MR ORDERABLES Final Resu lt documented in this encounter Visit Diagnoses Diagnosis Dermatomyositis (CMS/HCC) Dermatomyositis Muscle weakness of left upper extremity Muscle weakness (generalized) Dermatomyositis (CMS/HCC) Dermatomyositis Muscle weakness of left upper extremity Muscle weakness (generalized) documented in this encounter Care Teams Retail Event And Sales Assistant Relationship Specialty Start Date End Date Ilda Hicks APN [facility] [address] [address] PCP - General 03/29/08 documented as of this encounter
--- OUTSIDE RECORDS SUMMARY | 2024-11-19 10:30 | XMS_ITS | Encounter Summary ---
Author Organization [facility] Address [address] [place] [address] Care Team Providers Care Chlorobutadiene Scrubber Operator Name Role Phone Ilda Hicks APN Primary Care Provider [phone] Encounter Details Date Type Department Care Team (Late st Contact Info) Description 06/09/2007 Outpatient Historical [facility] [address] [facility] [address] [place] [address] Social History Tobacco Use Types Packs/Day Years Used Date Smoking Tobacco: Never Assessed Comments Unknown Sex and Gender Information Value Date Recorded Sex Assigned at Not on file 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
--- OUTSIDE RECORDS SUMMARY | 2024-11-19 10:30 | XMS_ITS | Encounter Summary ---
Author Organization [facility] Address [address] [place] [address] Care Team Providers Care Community Engagement Coordinator Name Role Phone Ilda Hicks APN Primary Care Provider [phone] Encounter Details Date Type Department Care Team (Latest Contact Info) Description 11/16/2004 Outpatient 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 [address] PCP - General 03/29/08 documented as of this encounter
--- OUTSIDE RECORDS SUMMARY | 2024-11-19 10:30 | XMS_ITS | Encounter Summary ---
Author Organization [facility] Address [address] [place] [address] Care Team Providers Care Planishing Hammer Operator Name Role Phone Ilda Hicks APN Primary Care Provider [phone] Encounter Details Date Type Department Care Team (Latest Contact Info) Description 11/16/2004 Outpatient Historical [facility] [address] [facility] [address] [place] [phone] Kvng Lyn MD NO ADDRESS ON FILE SCREENING MAMM-MAILG NEOPL NEC (Primary Dx) Social History Tobacco Use Types Packs/Day Years Used Date Smoking Tobacco: Never Assessed Comments Unknown Sex and Gender Information Value Date Recorded Sex Assigned at Not on file 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 [facility] [address] [place] [address] PCP - General 03/29/08 documented as of this encounter
--- OUTSIDE RECORDS SUMMARY | 2024-11-19 10:30 | XMS_ITS | Encounter Summary ---
Author Organization [facility] Address [address] [place] [address] Care Team Providers Care Thread Marker Name Role Phone Hicks, Ilda Forbes APN Primary Care Provider [phone] Encounter Details Date Type Department Care Team (Late st Contact Info) Description 07/18/2017 Ancillary Orders [facility]3] Orthopedics - [facility] [address] [place] [address] [facility], External Provider [address] [place] [address] Pain Social History Tobacco Use Types Packs/Day Years Used Date Smoking Tobacco: Never Alcohol Use Standard Drinks/Week Comments No 0 (1 standard drink = 0.6 oz pur e alcohol) rare Comments No Sex and Gender Information Value Date Recorded Sex Assigned at Not on file Legal Sex Female 2:47 AM FOUNDATION DIGGER Gender Identity Not on file Sexual Orientation [...] to be scanned to PACS. External Provider [facility] DIAGNOSTIC IMAGING ORDERAB LES Final Result * XR PRIOR STUDY (06/02/2017 4:35 PM CDT) Narrative 07/18/2017 8:57 AM CDT This exam was auto finalized to allow images to be scanned to PACS. us External Provider [facility] DIAGNOSTIC IMAGING ORDERAB LES Final Result * XR PRIOR STUDY (05/18/2017 1:10 PM CDT) Narrative 07/18/2017 8:58 AM CDT This exam was auto finalized to allow images to be scanned to PACS. us External Provider [facility] DIAGNOSTIC IMAGING ORDERAB LES Final Result * XR PRIOR STUDY (05/12/2017 9:15 AM CDT) Narrative 07/18/2017 8:58 AM CDT This exam was auto finalized to allow images to be scanned to PACS. us External Provider [facility] DIAGNOSTIC IMAGING ORDERAB LES Final Result documented in this encounter Visit Diagnoses Diagnosis Pain Generalized pain Pain Generalized pain Pain Generalized pain Pain Generalized pain Pain Generalized pain documented in this encounter Care Teams Thread Marker Relationship Specialty Start Date End Date Ilda Hicks APN [facility] [address] [address] PCP - General 03/29/08 documented as of this encounter
--- OUTSIDE RECORDS SUMMARY | 2024-11-19 10:30 | XMS_ITS | Encounter Summary ---
Author Organization [facility] Address [address] [place] [address] Care Team Providers Care Health Care Aide Name Role Phone Ilda Hicks APN Primary Care Provider [phone] Encounter Details Date Type Department Care Team (Late st Contact Info) Description 04/10/2009 Ancillary Orders [facility] Gen Spec Surg [place] [facility] [address] [place] [address] Judson Yang MD NO ADDRESS ON FILE Social History Tobacco Use Types Packs/Day Years Used Date Smoking Tobacco: Never Alcohol Use Standard Drinks/Week Comments No 0 (1 standard drink = 0.6 oz pur e alcohol) Comments No Sex and Gender Information Value Date Recorded Sex Assigned at Not on file 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 [facility] [address] [place] [address] PCP - General 03/29/08 documented as of this encounter
[2024-11-19] MEDS: heparin 5,000 unit/mL INJ 1 mL 5000 UNIT SUBCUT ×2 (11:28→22:11)
--- NOTE | 2024-11-19 15:13 | PC.OT ---
OT EVALUATION ATTEMPTED; PATIENT HAS MULTIPLE FAMILY MEMBERS AND 2 NURSES IN ROOM. NURSE REQUEST HOLD AT THIS TIME DUE TO DIZZINESS AND NAUSEA
--- NOTE | 2024-11-19 15:19 | PC.NURSE ---
Notified Dr. Patterson patients blood pressure 180/112 automatic and 210/112 manual
--- NOTE | 2024-11-19 15:30 | MRR_ITS ---
PROCEDURE INFORMATION: Exam: MR Head With Contrast Exam date and time: 11/19/2024 5:11 PM Age: 74 years old Clinical indication: Abnormal findings; Abnormal radiologic findings of head/skull; Intracranial mass/space-occupying lesion; Additional info: Noncontrast head was abnormal, suspicious for malignancy TECHNIQUE: Imaging protocol: Magnetic resonance imaging of the head with contrast. Total images: 2915 Contrast material: MULTIHANCE; Contrast volume: 18 ml; Contrast route: INTRAVENOUS (IV); COMPARISON: 1. MR head wo con* [id number] 11/19/2024 9:[address] head wo con* [id number] 11/18/2024 7:09 PM FINDINGS: Brain: Please see MRI brain without contrast performed earlier today for additional findings. (1) Right occipital intra-axial enhancing mass is poorly circumscribed, with maximum transverse dimension 3.2 cm (axial T1 postcontrast, series 300, image 162). (2) Right cerebellar rim enhancing intra-axial mass is a well circumscribed target lesions suitable for future follow-up assessment, measuring 2.5 cm (series 300, image 120). (3) Left cerebellar similar rim enhancing mass, well-circumscribed target lesions suitable for future follow-up assessment measuring 2.9 cm (series 300, image 139). Each of the aforementioned masses are surrounded by vasogenic edema best appreciated on the MRI brain without contrast performed earlier today at 9:12 a.m.. Cerebellar vasogenic edema accounts for mild narrowing of the aqueduct of Sylvius (sagittal, series 304, image 86). Brain parenchyma moderate age-expected global volume loss. Moderate periventricular subcortical white matter hyperintensity (WMH) on fluid sensitive pulse sequences, a nonspecific finding most frequently accounted for by chronic microvascular ischemic changes in a patient of this age, which can be interpreted based on the clinical context. No specific abnormalities of signal within the brain parenchyma. No restricted diffusion at echoplanar diffusion-weighted imaging. No localized mass-effect or edema, or pathologic shift of midline structures. No acute intracranial hemorrhage. Satisfactory almeida-white matter differentiation. Normal anatomy of the posterior fossa, cerebellum, donaldo and medulla allowing for the degree of cerebral parenchymal volume loss. Cerebral ventricles: CSF spaces demonstrate moderate generalized enlargement of the ventricles, cisterns and other subarachnoid spaces commensurate with patient's age. Orbital cavities: Unremarkable. Vasculature: Intracranial arterial structures demonstrate no major vessel occlusion, aneurysm, dissection or stenosis. Major central venous sinuses are patent. (4) right high frontal localized serpiginous cortical focus of enhancement probably represents a prominent cortical vein, likely a nontarget lesion with regard to future follow-up assessment. Satisfactory major vessel T2 flow void characteristic of flowing intravascular blood. Soft tissues: Soft tissues are normal as visualized, demonstrating no masses or induration. MR/MR head w con [id number] IMPRESSION: 1. 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 2. Prominent right high frontal cortical serpiginous vein (4 above) demonstrates notable enhancement but is probably a normal nontarget finding. 3. No acute intracranial hemorrhage or manifestations of infarction. 4. Moderate generalized age expected involutional (atrophic) change. 5. Mild-moderate white matter hyperintensites (WHI) on fluid sensitive pulse sequences most frequently accounted for by chronic microvascular ischemic changes at this age, to be interpreted based on the clinical context. COMMENTS: Please see MRI brain without contrast performed earlier today regarding additional findings.
[2024-11-19] MEDS: hyDRALAzine 20 mg/mL INJ 1 mL 10 MG IVP (15:36)
[2024-11-19] MEDS: labetalol 5 mg/mL SDV 20mL 20 MG IVP (15:37)
[2024-11-19] MEDS: sodium chlor 0.9% + KCl 20 mEq 20 MEQ/1,000 ML BAG 100 MEQ IV (16:04)
--- NOTE | 2024-11-19 16:05 | P.PN_ITS ---
Subjective 2 Subjective: 74-year-old female admitted [facility] with recent neurologic symptoms. She has had nausea vomiting with standing and walking for last 48 hours. Daughters present at bedside include Flores Rodriguez, Siobhan Rodriguez and Vahid to [id number] to Flores. The patient has been having difficulty with balance being off and fell on Tuesday and Tuesday before that she was nauseated and 2 weekends ago she just did not feel well. Patient denies weight gain or weight loss. She denies fevers. She had breast cancer 2004 treated with right mastectomy followed by chemotherapy no radiation. She has done well without recurrence since that time. Patient reports that her blood pressure runs high at home maybe 150 but never over 200 systolic patient denies headache. Vitals/I&O/Wt Last Vital Signs Temp 97.9 F 11/19/24 11:09 Pulse 79 11/19/24 11:09 Resp 18 11/19/24 11:09 BP 170/98 11/19/24 11:09 Pulse Ox 94 11/19/24 11:09 O2 Del Method Room Air 11/19/24 11:09 11/19/24 11/19/24 11/19/24 06:59 14:59 22:59 Intake Total 120 / 120 Output Total 900 / 900 Balance -900 / -900 120 / 120 Weight last 48 hrs Weight 81.193 kg Weight 79.696 kg Weight 79.379 kg Physical Exam 2 Narrative: General Well-developed obese female in no acute cardiopulmonary stress Neuro she is slurred in her speech and delayed in her answers but they are clear and none of them appear to be wrong. She has slight lag on her left eyelid. Pupils are equally round and reactive to light accommodation if 5 mm eye squint is equal smile is equal handgrips biceps triceps ankle flexion extension all equal. She does have some discoordination with [id number] left side is worse than right. She also has decreased accuracy with [id number] bilaterally but left worse than right. There is no dysdiadochokinesis CV regular rate and rhythm Lungs clear to auscultation bilaterally Abdomen positive bowel tones soft nontender Calves trace ankle edema Skin warm and dry Mood and affect normal Data 11/18/24 18:19 11/19/24 01:58 A&P Assessment and plan 1. Abnormal MRI of the head: - Encephalomalacia/hypoattenuating lesion found in the cerebellar region - MRI brain shows extensive bilateral cerebellar signal abnormality suspicious for metastatic neoplasm less likely abscess or infarct. There is also a posterior right frontal lobe 0.6 cm lesion suspicious for metastases. MRI of the brain with contrast ordered stat to further evaluate. Patient with cerebellar neurologic deficit left greater than right but all pretty mild thus far. Blood pressure is out of control 2. Hypertensive urgency: - Patient provided her home medications in the ER and her blood pressure was normal - Continue home medication for high blood pressure, metoprolol 75 mg twice daily, lisinopril 20 mg daily twice daily. - Monitor vitals - TSH is low at 0.23 and has run low normal at 0.36 and 0.40 historically in 2023 - Patient's blood pressure as high as 220 systolic and she will be treated with labetalol and hydralazine for goal get blood pressure below 180 for now - Telemetry monitoring 3. Degenerative joint disease (DJD) of lumbar spine: - Patient having rheumatoid arthritis and on methotrexate seen in the home medications and folic acid with it. - Medication to be reconciled before's initiating home medication - No active joint inflammation or pain on clinical examination, however the right hand deformities appreciated - Continue monitor and adequate analgesia as needed - Patient taking duloxetine 60 mg daily, to resume after reconciliation 4. Rheumatoid arthritis with positive rheumatoid factor, involving unspecified site: - Patient on methotrexate and folic acid at home - To resume medication after reconciliation 5. Recurrent major depressive disorder, in partial remission: - Patient taking alprazolam 0.5 mg daily as needed for anxiety - Continue on home duloxetine 6. High risk medication use: Patient on chronic methotrexate PDMP PDMP Reviewed: Not Reviewed Attestations 2 Medical Necessity Statement*: Patient will remain in the hospital for stat MRI with contrast of the brain if suspicious for cancer will be transferred to tertiary care facility with neurosurgery Coding Level of Care Code 53312 Diagnoses Abnormal MRI of the head R93.0 Hypertensive urgency I16.0 Degenerative joint disease (DJD) of lumbar spine M47.816 Rheumatoid arthritis with positive rheumatoid factor, involving unspecified site M05.9 Recurrent major depressive disorder, in partial remission F33.41 High risk medication use Z79.899 Time Spent (min) 40
[2024-11-19] MEDS: gadobenate dimeglumine 20 mL vial 18 ML IV (17:11)
[2024-11-19] MEDS: hyDRALAzine 20 mg/mL INJ 1 mL IVP (23:29)
--- NOTE | 2024-11-19 23:35 | PC.NURSE ---
Pt BP was 181/101 around 2039 today. Pt did not have any BP meds scheduled until 0500. I notified Dr. Rondon and dr desai to give 20mg IVP of hydralyzine. Pt IV infiltrated and was leaking as I was inspected it before I gave it. IV was removed. Due to inability to find a new IV access, hydralyzine was late per APR. IV was successfully put in around 2330. I rechecked pt BP again before giving and it was 185/119. Hydralyzine IVP 20mg given per APR and Dr. Rondon notified. I will recheck BP in an hour.
[2024-11-20] VITALS (10 sets, daily range): BP systolic 158–200; BP diastolic 77–109; PULSE 74–95; RESP 16–19; TEMP 36.5–36.7; O2SAT 93–96
--- NOTE | 2024-11-20 00:07 | PC.NURSE ---
BP rechecked. New BP is 158/77.
[2024-11-20] MEDS: alum-mag-hydroxide-sime 30 mL UDC 15 ML PO ×2 (04:50→20:11)
[2024-11-20] MEDS: sodium chlor 0.9% + KCl 20 mEq 20 MEQ/1,000 ML BAG 100 MEQ IV (06:03)
[2024-11-20] MEDS: ondansetron 2 mg/ML SDV 2 mL 4 MG IVP (08:39)
--- NOTE | 2024-11-20 09:53 | PC.CHAP ---
Pastoral Care Encounter/Spiritual Assessment Type of Contact [] Declined linux administrator visit [] Patient/Family/Request visit [] Outpatient visit [] Follow-up visit [] Physician referral [] Code/Alert [x] Routine visit [] Staff referral [] Actively dying [] Patient sleeping [x] Family support [] [] Out of room [] Palliative care [] [] Receiving care in room [] Pre-surgical visit [] Trauma [] Long length of stay [] ICU visit [] Other: Relational/Emotional Strength [x] Patient feels connected with others/family/visitors/staff [] Distress [] Loneliness/isolation [] Abandonment Spirituality of Patient [x] Person of Michaela [] Attends Druze of their Michaela [x] Believes in Prayer [] Reads Bible or Episcopal materials [] There are Spiritual issues to be addressed Energy Scheduler Interventions [x] Prayer [x] Active listening [x] Non-anxious presence [x] Spiritual/emotional support [] Crisis/trauma care [] Spiritual counseling [] Bereavement support [] Provided bereavement packet [] Provided Bible/devotional materials [] Provided toy/stuffed animal, coloring book to patient or family member [] Provided Communion [] Anointing/[place] [] Salvation [x] Completed spiritual assessment [] Other: Impact on Illness or Injury [] Angry [] Fearful [] Anxious [] Often cries [] Exhaustion [] Unable to work [] Unable to attend gnosticist [] Unable to walk/stand [] Unable to read [] Unable to drive [] Unable to eat/drink [] Unable to sleep [] Unable to be with family [] Patient intubated [] Other: Summary Time spent with patient 5 min
[2024-11-20] MEDS: heparin 5,000 unit/mL INJ 1 mL 5000 UNIT SUBCUT ×2 (11:43→21:54)
--- NOTE | 2024-11-20 12:28 | PC.OT ---
OT EVALUATION ATTEMPTED. PATIENT IS SLEEPING AND FAMILY IS PRESENT. DISCUSS ROLE OF OT; PATIENT DOES AWAKEN BUT UNABLE TO MAINTAIN ALERTNESS. PATIENT IS TO HAVE SCAN TODAY AND THEN SHE AND FAMILY WILL DETERMINE COURSE OF ACTION. THEY REQUEST THAT I HOLD OT EVAL TODAY AND ATTEMPT TOMORROW WHEN THEY HAVE MORE INFORMATION.
--- NOTE | 2024-11-20 17:16 | P.PN_ITS ---
Subjective 2 Subjective: 74-year-old female found to avalos ve cerebellar and cerebral masses consistent with metastatic cancer. Daughters present at bedside include Flores Rodriguez, and Lelah to [id number] to Flores. The patient reports feeling fatigued since that time. Patient was agreeable to breast exam chaperoned by her daughters Vitals/I&O/Wt Last Vital Signs Temp 98.0 F 11/20/24 15:48 Pulse 74 11/20/24 15:48 Resp 18 11/20/24 15:48 BP 198/102 11/20/24 15:48 Pulse Ox 93 11/20/24 15:48 O2 Del Method Room Air 11/20/24 15:48 11/20/24 11/20/24 11/20/24 06:59 14:59 22:59 Intake Total 456.667 / 1120.000 120 / 120 Output Total 400 / 800 Balance 56.667 / 320.000 120 / 120 Weight last 48 hrs Weight 81.193 kg Weight 81.193 kg Weight 79.696 kg Weight 79.379 kg Physical Exam 2 Narrative: General Well-developed obese female in no acute cardiopulmonary stress Neuro she is slurred in her speech and delayed in her answers but they are clear and none of them appear to be wrong. She has slight lag on her left eyelid. CV regular rate and rhythm Lungs clear to auscultation bilaterally Abdomen positive bowel tones soft nontender Calves trace ankle edema Skin warm and dry Mood and affect normal Lymph node exam no neck axilla or femoral adenopathy Neck no thyromegaly or masses Right breast reconstruction without signs of masses. Left breast without palpable mass or nipple retraction or discharge Data 11/18/24 18:19 11/19/24 01:58 MRI: Radiologist's impression: 1. 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 2. Prominent right high frontal cortical serpiginous vein (4 above) demonstrates notable enhancement but is probably a normal nontarget finding. 3. No acute intracranial hemorrhage or manifestations of infarction. 4. Moderate generalized age expected involutional (atrophic) change. 5. Mild-moderate white matter hyperintensites (WHI) on fluid sensitive pulse sequences most frequently accounted for by chronic microvascular ischemic changes at this age, to be interpreted based on the clinical context. A&P Assessment and plan 1. Abnormal MRI of the head: - Encephalomalacia/hypoattenuating lesion found in the cerebellar region - MRI brain shows extensive bilateral cerebellar signal abnormality suspicious for metastatic neoplasm less likely abscess or infarct. There is also a posterior right frontal lobe 0.6 cm lesion suspicious for metastases. MRI of the brain with contrast ordered stat to further evaluate. Patient with cerebellar neurologic deficit left greater than right but all pretty mild thus far. Blood pressure is out of control I discussed with family that without biopsy we are not 100% sure this is cancer but this appears to fit cancer and biopsy difficult on the brain especially given multiple lesions this would not be curative and appears to be not a brain primary but a metastatic lesion. We discussed options including hospice versus trying to find a primary and they elected for the second option so we will proceed with CT chest abdomen pelvis with IV and oral contrast 2. Hypertensive urgency: - Continue home medication for high blood pressure, metoprolol 75 mg twice daily, lisinopril 20 mg daily twice daily. - Added amlodipine 5 mg this morning and will increase to 5 mg twice a day. Start clonidine 0.1 mg twice daily hold for heart rate less than 60 or systolic blood pressure less than 140. Add hydralazine for systolic blood pressure over 160 - TSH is low at 0.23 and has run low normal at 0.36 and 0.40 historically in 2023 - Telemetry monitoring 3. Degenerative joint disease (DJD) of lumbar spine: - Patient having rheumatoid arthritis and on methotrexate seen in the home medications and folic acid with it. - Medication to be reconciled before's initiating home medication - No active joint inflammation or pain on clinical examination, however the right hand deformities appreciated - Continue monitor and adequate analgesia as needed - Patient taking duloxetine 60 mg daily, to resume after reconciliation 4. Rheumatoid arthritis with positive rheumatoid factor, involving unspecified site: - Patient on methotrexate and folic acid at home - To resume medication after reconciliation 5. Recurrent major depressive disorder, in partial remission: - Patient taking alprazolam 0.5 mg daily as needed for anxiety - Continue on home duloxetine 6. High risk medication use: Patient on chronic methotrexate. I am considering the possibility that patient's cerebellar masses are infectious in etiology. Last sed rate 17 in October C-reactive protein has not been checked PDMP PDMP Reviewed: Not Reviewed Attestations 2 Medical Necessity Statement*: Patient luke in hospital for management of hypertension and CT of the chest abdomen pelvis to look for primary malignancy Coding Level of Care Code 39117 Diagnoses Abnormal MRI of the head R93.0 Hypertensive urgency I16.0 Degenerative joint disease (DJD) of lumbar spine M47.816 Rheumatoid arthritis with positive rheumatoid factor, involving unspecified site M05.9 Rheumatoid arthritis location: unspecified site Rheumatoid factor presence: with rheumatoid factor Recurrent major depressive disorder, in partial remission F33.41 Major depression recurrence: recurrent High risk medication use Z79.899 Time Spent (min) 45
[2024-11-20] MEDS: HYDROcodone-acetaminophen 5-325 mg Tablet 1 TAB PO (23:34)
[2024-11-21] VITALS (7 sets, daily range): BP systolic 145–177; BP diastolic 82–99; PULSE 75–90; RESP 16–18; TEMP 36.3–36.9; O2SAT 91–95
--- NOTE | 2024-11-21 | PC.NURSE ---
Unable to give fluids scheduled per MAR to pt due to no IV access. Multiple attempts were made with the ultrasound to get an IV today but still could not get one in. Pt is very edematous. There is an order for a PICC line to be placed tomorrow.
[2024-11-21] MEDS: alum-mag-hydroxide-sime 30 mL UDC 15 ML PO (04:27)
--- NOTE | 2024-11-21 08:00 | CTR_ITS ---
PROCEDURE INFORMATION: Exam: CT Chest With Contrast; Diagnostic Exam date and time: 11/21/2024 11:36 AM Age: 74 years old Clinical indication: Condition or disease; Other: Brain mets; Prior surgery; Surgery date: 6+ months; Surgery type: Knee, mastectomy; HX of breast cancer; Additional info: Brain mets of uncertain origin. HX R breast CA 2004, exam no breast mass in left no adenopathy. Neck and mouth TECHNIQUE: Imaging protocol: Diagnostic computed tomography of the chest with contrast. Radiation optimization: All CT scans at this facility use at least one of these dose optimization techniques: automated exposure control; mA and/or kV adjustment per patient size (includes targeted exams where dose is matched to clinical indication); or iterative reconstruction. Contrast material: OMNI 350; Contrast volume: 100 ml; Contrast route: INTRAVENOUS (IV); COMPARISON: CR (CHEST, ) 11/18/2024 6:58 PM RADIATION DOSE METRICS: Total DLP (mGy-cm): 28.66 FINDINGS: Lungs: Bilateral atelectasis medially in the lower lobes. No lung consolidation or mass. Pleural spaces: Unremarkable. No pneumothorax. No pleural effusion. Heart: Unremarkable. No cardiomegaly. No pericardial effusion. Coronary arteries: Mild coronary artery calcification. Lymph nodes: No lymph node enlargement. Vasculature: Unremarkable. No aortic aneurysm. Diaphragm: There is a small hiatal hernia. Bones/joints: Extensive anterior osteophytes are markedly protuberant and fuse the majority of the thoracic spine. No suspicious sclerotic or lytic lesion identified. Soft tissues: Right breast implant is noted. PROCEDURE INFORMATION: Exam: CT Abdomen And Pelvis With Contrast Exam date and time: 11/21/2024 11:36 AM Age: 74 years old Clinical indication: Condition or disease; Other: Brain mets; Prior surgery; Surgery date: 6+ months; Surgery type: Knee, mastectomy; HX of breast cancer; Additional info: Brain mets of uncertain origin. HX R breast CA 2004, exam no breast mass in left no adenopathy. Neck and mouth TECHNIQUE: Imaging protocol: Computed tomography of the abdomen and pelvis with contrast. Radiation optimization: All CT scans at this facility use at least one of these dose optimization techniques: automated exposure control; mA and/or kV adjustment per patient size (includes targeted exams where dose is matched to clinical indication); or iterative reconstruction. Contrast material: OMNI 350; Contrast volume: 100 ml; Contrast route: INTRAVENOUS (IV); COMPARISON: CR XR lumbar spine 2-3V* [id number] 06/12/2021 8:14 AM RADIATION DOSE METRICS: Total DLP (mGy-cm): 28.66 FINDINGS: Liver: Faint 12 mm hypodensity inferiorly in segment 4. No other suspicious liver lesion. Gallbladder and biliary ducts: Gallbladder is not visualized, most consistent with cholecystectomy.There is no evidence of biliary ductal dilation. Pancreas: Atrophy of the pancreas. No evidence of acute pancreatitis. No ductal dilatation. Spleen: The spleen is normal. Adrenal glands: The adrenal glands are normal. Kidneys and ureters: Right renal scarring. No renal mass or hydronephrosis. Stomach and bowel: Colonic diverticulosis without evidence of diverticulitis. Bowel caliber is normal. No paracolonic inflammatory changes. Appendix: Normal appendix. Intraperitoneal space: No free intraperitoneal fluid or gas. Vasculature: Aortic caliber is normal. Lymph nodes: No lymph node enlargement. Urinary bladder: The bladder is distended, but normal in configuration. Homogeneous hyperdensity of the bladder contents suggests urinary contrast excretion. Reproductive: Uterus is unremarkable. No suspicious adnexal lesion seen. Bones/joints: Contiguous fusion of anterior osteophytes in the thoracic spine compatible with diffuse idiopathic skeletal hyperostosis. T2-3 and L5-S1 disc space fusion. Remaining lumbar discs reveals severe degenerative changes. Suspicious osseous lesion is not identified. Soft tissues: Abdominal wall mesh material is noted, consistent with previous hernia repair. CT/CT chest abdpel w/*[id number] IMPRESSION: 1. No acute disease in the chest. 2. Contiguous fusion of anterior osteophytes in the thoracic spine compatible with diffuse idiopathic skeletal hyperostosis. IMPRESSION: 1. Faint 12 mm hypodensity inferiorly in segment 4. The geographic appearance may reflect focal fatty infiltration, but continued CT surveillance is recommended to exclude the possibility of hepatic metastasis. 2. No other evidence for metastatic disease to the abdomen or pelvis.
[2024-11-21] MEDS: iohexol 350 mg/mL 500 mL Btl (per mL) PO (09:27)
--- NOTE | 2024-11-21 09:54 | PICC.NOTE ---
Midline placed to left cephalic vein. Referred to vascular access nurse due to poor peripheral access and no current IV access. Risks and benefits discussed and informed consent obtained via phone from pt daughter, Flores. Pt with history of right mastectomy. Left arm assessed with left basilic vein measuring 3.2 mm, straight, and apparent best choice for placement. Using sterile technique and MST, left basilic vein accessed x 1 stick. Unable to thread catheter. Brachial vein noted to be too small for access. PICC aborted. Midline placed to left cephalic vein. Mid-arm circumference measured 10 cm from left AC 43 cm. Trimmed cath 10 cm with 0 cm external length noted. Line secured with stat-lock. Insertion site covered with Biopatch and TSM. Report given to bedside nurse, OLGA Gordon.
[2024-11-21] MEDS: iohexol 350 mg/mL 500 mL Btl (per mL) IV (11:38)
[2024-11-21] MEDS: heparin 5,000 unit/mL INJ 1 mL 5000 UNIT SUBCUT (12:06)
[2024-11-21] MEDS: sodium chlor 0.9% + KCl 20 mEq 20 MEQ/1,000 ML BAG 100 MEQ IV (12:06)
--- NOTE | 2024-11-21 16:27 | PC.OT ---
OT EVALUATION IS ATTEMPTED MULTIPLE TIMES TODAY. EITHER THE FAMILY IS IN THE ROOM AND THE PATIENT IS NOT OR THE PATIENT IN THE ROOM AND THE FAMILY IS GONE. FAMILY REQUESTED INFORMATION ABOUT HOW TO CARE FOR PATIENTS DAILY NEEDS AT HOME THEY WOULD LIKELY D/C WITH HOSPICE. AT LAST ATTEMPT, DAUGHTER IN ROOM AND AGREEABLE TO INFORMATION; HANDOUT ON DAILY NEEDS (EASE) GIVEN AND YOUTUBE VIDEO FOR HOW TO TRANSFER A PATIENT SAFELY TO [facility] AND TO W/C GIVEN. FAMILY VERBALIZES UNDERSTANDING. BY OBSERVATION AND FAMILY REPORT, THE PATIENT IS SEEING SPIDERS, PICKING AT HER ARMS AND SEEING PEOPLE OUTSIDE THE WINDOW (2ND FLOOR). NURSE INFORMED. FAMILY REPORTS THAT THE PATIENT WILL BE TRANSFERRED TO [facility] OR TOMORROW. NO FURTHER OT NEEDS AT THIS TIME.
--- NOTE | 2024-11-21 16:35 | P.TS_ITS ---
Transfer Summary Providers Date of Admission: 11/18/24 22:43 Date of Discharge/Transfer: 11/21/24 Attending Provider at Admission: Dixon Hatch MD Attending Provider at Transfer: Thaddeus Patterson MD Primary Care Provider: Ilda Hicks APN Transfer Plans: Anticipated date of transfer: 11/21/24 . Receiving Facility: [facility] . Receiving Provider: RONNIE Monroy . Additional transfer facility information: Transfer to accepted for air transport room #2 follow-up . Diagnoses at Discharge Discharge Diagnosis 1. 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 Cannot completely exclude infectious cause 2. Hypertensive urgency: Details from hospital stay: Baseline underlying hypertension exacerbated by above mass 3. Degenerative joint disease (DJD) of lumbar spine: Details from hospital stay: Stable 4. Rheumatoid arthritis with positive rheumatoid factor, involving unspecified site: Details from hospital stay: Is on chronic methotrexate but not on Biologics or other injectable type immunosuppressants. She also takes occasional prednisone burst about once every 3 months 5. Recurrent major depressive disorder, in partial remission: Details from hospital stay: Stable 6. High risk medication use: Details from hospital stay: Methotrexate 12.5 mg twice a day on Sundays weekly Reason for Visit Reason for Visit dizzy, nausea Brief History: Kassi Rodriguez is a 74 year old female with PMH of uncontrolled HTN, right knee surgery status post chronic dizziness on meclizine, major depression, degenerative joint joint disease, rheumatoid arthritis with mild finger deformities of the hand came with dizziness and found to have uncontrolled hypertension. There was associated mild nausea and vomiting but this was more related to her dizziness that comes on and off. She has been on meclizine but it did not help her. In the past she did not see any physical therapist as well. There is no associated syncope, presyncope or any fall associated with dizziness. The dizziness reported is more while turning her head to the right side. There is no dizziness while standing from sitting position. No retro- orbital pressure or any throbbing or thunderclap like headache. The patient did not report any fever, chills, nausea, vomit, chest pressure chest pain, abdominal pain, diarrhea, or any change in her urinary or bowel habits.There is no reporting of lower leg edema, any orthopnea or PND. The patient did not had any recent sick contacts, or any travel history. Patient is compliant to her medications. However due to ongoing dizziness and nausea vomiting she missed her medications for about a week. Hospital Course Hospital Course 74-year-old female admitted last night with recent neurologic symptoms. She has had nausea vomiting with standing and walking for last 48 hours. Daughters present at bedside include Flores Rodriguez, Siobhan Rodriguez and Vahid to [id number] to Flores. The patient has been having difficulty with balance being off and fell on Tuesday and Tuesday before that she was nauseated and 2 weekends ago she just did not feel well. Patient denies weight gain or weight loss. She denies fevers. She had breast cancer 2004 treated with right mastectomy followed by chemotherapy no radiation. She has done well without recurrence since that time. Patient reports that her blood pressure runs high at home maybe 150 but never over 200 systolic patient denies headache. With the abnormal CT showing hypodensity in the cerebellum MRI was done with and without contrast on 11/19/2024 showing bilateral enhancing presumed metastatic neoplastic foci in the right occipital lobe right cerebellum and left cerebellum 3 cm in size right side and 2.9 on the left 11/20/2024 breast exam negative for masses or recurrence of her breast cancer from 20 years ago as well as no adenopathy or other masses found on exam. CT chest abdomen pelvis with IV and oral contrast could not be completed that day due to poor IV access. Midline was placed and she underwent this scan today showing no primary. There is no acute disease in the chest abdomen or pelvis. I considered the diagnosis of infection but the patient is not on any Biologics or injectable immune suppressants. She does take methotrexate. I spoke with Dr. Coley and we considered the diagnosis of toxoplasmosis, cryptococcus, histoplasmosis and coccidiomycosis but this is deemed unlikely given she is not on injectable immunosuppressants. Radiologist cautioned against lumbar puncture given the fourth ventricle compression. I contacted [facility] after discussion with the family and that was there choice for tertiary care facility. I spoke with Ronit Del Angel hospitalist RONNIE, Dr. Cantrell the neurologist and the neurosurgeon and he was unable to view the films but recommended clinical decision on transport therefore I ordered air transport. Consents were signed family updated bedside Physical Exam Narrative: 11/20/2024 exam General Well-developed obese female in no acute cardiopulmonary stress Neuro she is slurred in her speech and delayed in her answers but they are clear and none of them appear to be wrong. She has slight lag on her left eyelid. CV regular rate and rhythm Lungs clear to auscultation bilaterally Abdomen positive bowel tones soft nontender Calves trace ankle edema Skin warm and dry Mood and affect normal Lymph node exam no neck axilla or femoral adenopathy Neck no thyromegaly or masses Right breast reconstruction without signs of masses. Left breast without palpable mass or nipple retraction or discharge 11/21/2024 CV regular rate and rhythm lungs clear to auscultation bilaterally [id number] with past-pointing on the left side worse than 2 days ago [id number] modest discoordination left worse than right Pupils are equally round and reactive to light accommodation external ocular movements are intact. General mentation is lethargic and speech is slurred new from 2 days ago but progressive since yesterday and despite steroids given in the form of Decadron 4 mg IV every 6 hours TS Data Studies Completed and Pending Completed Studies During Hospitalization Category Date Time Status CT chest abdpel w/*[id number] Routine Cat Scan 11/21/24 08:[address] head wo con* [id number] Stat Cat Scan 11/18/24 18:23 Completed XR chest 1V portable [id number] Stat Exams 11/18/24 18:54 Completed XR foot LT min 3V* [id number] Stat Exams 11/18/24 18:54 Completed MR head w con [id number] Stat MRI 11/19/24 15:30 Completed MR head wo con* [id number] Routine MRI 11/19/24 08:00 Completed Laboratory Last Values WBC 8.15 10^3/uL (3.29-11.43) 11/18/24 18:19 RBC 4.27 10^6/uL (3.85-5.65) 11/18/24 18:19 Hgb 14.20 g/dL (11.27-16.99) 11/18/24 18:19 Hct 41.9 % (36-47) 11/18/24 18:19 MCV 98.1 fl (85-98) H 11/18/24 18:19 MCH 33.3 pg (27-33) H 11/18/24 18:19 MCHC 33.9 g/dL (30-55) 11/18/24 18:19 RDW 14.8 % (12.1-15.1) 11/18/24 18:19 Plt Count 266 10^3/cmm (157-399) 11/18/24 18:19 MPV 9.7 fL (7.4-10.4) 11/18/24 18:19 Neut % (Auto) 81.2 % 11/18/24 18:19 Lymph % (Auto) 11.5 % 11/18/24 18:19 [place] % (Auto) 5.9 % 11/18/24 18:19 Eos % (Auto) 0.4 % 11/18/24 18:19 Baso % (Auto) 0.4 % 11/18/24 18:19 Neut # (Auto) 6.62 10^3/uL (1.8-7.7) 11/18/24 18:19 Lymph # (Auto) 0.9 10^3/uL (0.8-4.8) 11/18/24 18:19 [place] # (Auto) 0.5 10^3/uL (0.2-0.9) 11/18/24 18:19 Eos # (Auto) 0.0 10^3/uL (0.0-0.8) 11/18/24 18:19 Baso # (Auto) 0.0 10^3/uL (0.0-0.1) 11/18/24 18:19 Nucleated RBC % (auto) 0 % 11/18/24 18:19 Nucleated RBCs # 0.0 /100WBC 11/18/24 18:19 Sodium 134 mmol/L (136-145) L 11/19/24 01:58 Potassium 3.6 mmol/L (3.5-5.1) 11/19/24 01:58 Chloride 95 mmol/L (98-107) L 11/19/24 01:58 Carbon Dioxide 23 mmol/L (22-29) 11/19/24 01:58 Anion Gap 19.6 (5-19) H 11/19/24 01:58 BUN 16 mg/dL (8-23) 11/19/24 01:58 Creatinine 0.5 mg/dL (0.5-0.9) 11/19/24 01:58 GFR Calculation Not Reportable 11/19/24 01:58 Glucose 129 mg/dL (65-115) H 11/19/24 01:58 Calculated Osmolality 281 mOsm/kg (285-295) L 11/19/24 01:58 Calcium 9.4 mg/dL (8.5-10.5) 11/19/24 01:58 Phosphorus 2.8 mg/dL (2.5-4.5) 11/18/24 18:19 Magnesium 2.0 mg/dL (1.7-2.3) 11/18/24 18:19 Total Bilirubin 0.6 mg/dL (0.15-1.2) 11/19/24 01:58 AST 31 U/L (0-32) 11/19/24 01:58 ALT 34 U/L (0-33) H 11/19/24 01:58 Alkaline Phosphatase 109 U/L (35-105) H 11/19/24 01:58 Total Protein 7.7 g/dL (6.6-8.7) 11/19/24 01:58 Albumin 4.1 g/dL (3.5-5.2) 11/19/24 01:58 Globulin 3.6 g/dL (1.3-4.6) 11/19/24 01:58 TSH 0.23 uIU/mL (0.27-4.20) L 11/18/24 18:19 Urine Color Yellow (Yellow) 11/18/24 18:25 Urine Appearance Turbid (CLEAR) A 11/18/24 18: Urine pH 8 (5-7) A 11/18/24 18: Ur Specific [place] 1.015 (1.005-1.030) 11/18/24 18: Urine Protein Trace (Negative) 11/18/24 18:25 Urine Glucose (UA) Trace (Normal) H 11/18/24 18:25 Urine Ketones 1+ (Negative) H 11/18/24 18:25 Urine Blood Neg (Negative) 11/18/24 18:25 Urine Nitrate Negative (Negative) 11/18/24 18:25 Urine Bilirubin Neg (Negative) 11/18/24 18: Urine Urobilinogen Neg mg/dL (Negative) 11/18/24 18:25 Ur Leukocyte Esterase Trace (Negative) H 11/18/24 18:25 Urine RBC 0-4 /hpf (0-2) H 11/18/24 18:25 Urine WBC 0-4 /hpf (0-5) H 11/18/24 18:25 Ur Squamous Epith Cells 0-4 /hpf (0-5) H 11/18/24 18:25 Amorphous Sediment 2+ /hpf 11/18/24 18:25 Urine Bacteria 1+ /hpf (NONE) H 11/18/24 18:[address] 11/18/24 18:23 IMPRESSION: 1. No acute hemorrhage, mass effect or extra-axial collection. 2. Asymmetric hypoattenuating foci in the right occipital periventricular white matter possibly related to encephalomalacia although no CT head comparison is available on PACS. Further evaluation with brain MRI could be considered for better characterization. Chest X-Ray 11/18/24 18:54 IMPRESSION: No acute findings. Foot X-Ray 11/18/24 18:54 IMPRESSION: No acute fracture or subluxation. Head MRI 11/19/24 15:30 IMPRESSION: 1. 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 2. Prominent right high frontal cortical serpiginous vein (4 above) demonstrates notable enhancement but is probably a normal nontarget finding. 3. No acute intracranial hemorrhage or manifestations of infarction. 4. Moderate generalized age expected involutional (atrophic) change. 5. Mild-moderate white matter hyperintensites (WHI) on fluid sensitive pulse sequences most frequently accounted for by chronic microvascular ischemic changes at this age, to be interpreted based on the clinical context. COMMENTS: Please see MRI brain without contrast performed earlier today regarding additional findings. Chest/Abdomen/Pelvis CT 11/21/24 08:00 IMPRESSION: 1. No acute disease in the chest. 2. Contiguous fusion of anterior osteophytes in the thoracic spine compatible with diffuse idiopathic skeletal hyperostosis. IMPRESSION: 1. Faint 12 mm hypodensity inferiorly in segment 4. The geographic appearance may reflect focal fatty infiltration, but continued CT surveillance is recommended to exclude the possibility of hepatic metastasis. 2. No other evidence for metastatic disease to the abdomen or pelvis. Imaging MRI: Radiologist's impression: 1. 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 2. Prominent right high frontal cortical serpiginous vein (4 above) demonstrates notable enhancement but is probably a normal nontarget finding. 3. No acute intracranial hemorrhage or manifestations of infarction. 4. Moderate generalized age expected involutional (atrophic) change. 5. Mild-moderate white matter hyperintensites (WHI) on fluid sensitive pulse sequences most frequently accounted for by chronic microvascular ischemic changes at this age, to be interpreted based on the clinical context. Recent Clincial Data Last Vital Signs Temp 98 F 11/21/24 16:13 Pulse 75 11/21/24 16:13 Resp 18 11/21/24 16:13 BP 159/83 11/21/24 16:13 Pulse Ox 91 11/21/24 16:13 O2 Del Method Room Air 11/21/24 16:13 Vital Signs Temp Pulse Resp BP Pulse Ox O2 Del Method 11/21/24 16:13 98 F 75 18 159/83 91 Room Air 11/21/24 11:21 97.6 F 81 16 177/83 93 Room Air 11/21/24 07:57 97.4 F L 82 16 145/82 92 Room Air Intake & Output/Weight 11/19/24 11/20/24 11/21/24 11/22/24 06:59 06:59 06:59 06:59 Intake Total 1120.000 / 1120.000 740 / 740 240 / 240 Output Total 900 / 900 800 / 800 1550 / 1550 1400 / 1400 Balance -900 / -900 320.000 / 320.000 -810 / -810 -1160 / -1160 Weight 81.193 kg 81.193 kg 81.193 kg Vitals Last Vital Signs Temp 98 F 11/21/24 16:13 Pulse 75 11/21/24 16:13 Resp 18 11/21/24 16:13 BP 159/83 11/21/24 16:13 Pulse Ox 91 11/21/24 16:13 O2 Del Method Room Air 11/21/24 16:13 TS Medications Medications Acetaminophen (Acetaminophen 325 Mg Tablet) 650 mg PO Q6H PRN PRN Reason: Mild/Mod Pain Or Temp >/= 101 Hydrocodone Bitart/Acetaminophen (Hydrocodone-Acetaminophen 5-325 Mg Tablet) 1 tab PO Q4H PRN PRN Reason: MODERATE TO SEVERE PAIN Last Admin: 11/20/24 23:34 Dose: 1 tab Al Hydrox/Mg Hydrox/Simethicone (Prrf-Xci-Uazeaxkeb-Onofre 30 Ml Udc) 15 ml PO TID [facility] Last Admin: 11/21/24 16:19 Dose: Not Given Alprazolam (Alprazolam 0.5 Mg Tablet) 0.5 mg PO DAILY PRN PRN Reason: ANXIETY Last Admin: 11/20/24 23:34 Dose: 0.5 mg Amlodipine Besylate (Amlodipine 5 Mg Tablet) 5 mg PO BID [facility] Last Admin: 11/21/24 04:27 Dose: 5 mg Calcium Carbonate (Calcium Carbonate 500 Mg Chew Tablet) 1,000 mg PO Q4H PRN PRN Reason: DYSPEPSI Clonidine HCl (Clonidine 0.1 Mg Tablet) 0.1 mg PO BID [facility] Last Admin: 11/21/24 04:28 Dose: 0.1 mg Cyclobenzaprine HCl (Cyclobenzaprine 10 Mg Tablet) 10 mg PO TID PRN PRN Reason: muscle spasm Dexamethasone (Dexamethasone 4 Mg/Ml Inj) 4 mg PO Q6H [facility] Last Admin: 11/21/24 12:06 Dose: 4 mg Duloxetine HCl (Duloxetine 60 Mg Capsule) 60 mg PO DAILY [facility] Last Admin: 11/21/24 04:29 Dose: 60 mg Heparin Sodium (Porcine) (Heparin 5,000 Unit/Ml Inj 1 Ml) 5,000 unit SUBCUT Q12H [facility] Last Admin: 11/21/24 12:06 Dose: 5,000 unit Hydralazine HCl (Hydralazine 20 Mg/Ml Inj 1 Ml) 20 mg IVP Q4H PRN PRN Reason: HYPERTENSION Potassium Chloride/Sodium Chloride (Sodium Chlor 0.9% + Kcl 20 Meq) 20 meq in 1,000 mls @ 50 mls/hr IV .Q20H [facility] Last Admin: 11/21/24 12:06 Dose: 100 mls/hr Lisinopril (Lisinopril 20 Mg Tablet) 20 mg PO BID [facility] Last Admin: 11/21/24 04:27 Dose: 20 mg Metoprolol Tartrate (Metoprolol Tartrate 50 Mg Tablet) 75 mg PO BID [facility] Last Admin: 11/21/24 04:28 Dose: 75 mg Ondansetron HCl (Ondansetron 2 Mg/Ml Sdv 2 Ml) 4 mg IVP Q8H PRN PRN Reason: vomiting, or N/V if npo Last Admin: 11/20/24 08:39 Dose: 4 mg Pantoprazole Sodium (Pantoprazole Dr 40 Mg Tablet) 40 mg PO DAILY [facility] Last Admin: 11/21/24 04:29 Dose: 40 mg Senna (Sennosides 8.6 Mg Tablet) 17.2 mg PO BEDTIME [facility] Last Admin: 11/20/24 20:12 Dose: 17.2 mg Discontinued Medications Amlodipine Besylate (Amlodipine 5 Mg Tablet) 5 mg PO DAILY [facility] Last Admin: 11/20/24 08:39 Dose: 5 mg Dexamethasone (Dexamethasone 4 Mg/Ml Inj) 4 mg IVP Q6H [facility] Last Admin: 11/20/24 21:17 Dose: Not Given Gadobenate Dimeglumine (Gadobenate Dimeglumine 20 Ml Vial) 18 ml IV ONCE ONE Stop: 11/19/24 17:12 Last Admin: 11/19/24 17:11 Dose: 18 ml Hydralazine HCl (Hydralazine 20 Mg/Ml Inj 1 Ml) 10 mg IVP ONCE ONE Stop: 11/19/24 15:23 Last Admin: 11/19/24 15:36 Dose: 10 mg Hydralazine HCl (Hydralazine 20 Mg/Ml Inj 1 Ml) 20 mg IVP ONCE ONE Stop: 11/19/24 21:20 Last Admin: 11/19/24 23:29 Dose: 20 mg Iohexol (Iohexol 350 Mg/Ml 500 Ml Btl (Per Ml)) 0 ml IV ONCE ONE Stop: 11/20/24 13:05 Last Admin: 11/20/24 13:07 Dose: Not Given Iohexol (Iohexol 350 Mg/Ml 500 Ml Btl (Per Ml)) 0 ml PO ONCE ONE Stop: 11/21/24 09:28 Last Admin: 11/21/24 09:27 Dose: 30 ml Iohexol (Iohexol 350 Mg/Ml 500 Ml Btl (Per Ml)) 0 ml IV ONCE ONE Stop: 11/21/24 11:48 Last Admin: 11/21/24 11:38 Dose: 100 ml Labetalol HCl (Labetalol 5 Mg/Ml Sdv 20ml) 20 mg IVP ONCE ONE Stop: 11/18/24 22:12 Last Admin: 11/18/24 22:27 Dose: 20 mg Labetalol HCl (Labetalol 5 Mg/Ml Sdv 20ml) 20 mg IVP ONCE ONE Stop: 11/19/24 15:24 Last Admin: 11/19/24 15:37 Dose: 20 mg Lisinopril (Lisinopril 20 Mg Tablet) 20 mg PO ONCE ONE Stop: 11/18/24 18:04 Last Admin: 11/18/24 18:21 Dose: 20 mg Meclizine HCl (Meclizine 25 Mg Tablet) 25 mg PO ONCE ONE Stop: 11/18/24 17:42 Last Admin: 11/18/24 17:54 Dose: 25 mg Metoprolol Tartrate (Metoprolol Tartrate 50 Mg Tablet) 50 mg PO ONCE ONE Stop: 11/18/24 18:04 Last Admin: 11/18/24 18:21 Dose: 50 mg Potassium Chloride (Potassium Chloride Er 20 Meq Tablet) 40 meq PO ONCE ONE Stop: 11/20/24 08:10 Last Admin: 11/20/24 08:38 Dose: 40 meq Allergies No Known Allergies Allergy (Verified 04/09/24 10:31) Home Medications alprazolam 0.5 mg tablet (Xanax) 0.5 mg PO DAILY PRN anxiety 30 days #30 tabs 09/29/23 [Rx Confirmed 11/18/24] cyclobenzaprine 10 mg tablet 10 mg PO TID PRN muscle spasm 30 days #90 tabs 09/29/23 [Rx Confirmed 11/18/24] duloxetine 60 mg capsule,delayed release (Cymbalta) 60 mg PO DAILY 90 days #90 caps 09/29/23 [Rx Confirmed 11/18/24] lisinopril 20 mg tablet 20 mg PO BID 90 days #180 tabs 09/29/23 [Rx Confirmed 11/18/24] metoprolol tartrate 75 mg tablet 75 mg PO BID 90 days #180 tabs 09/29/23 [Rx Confirmed 11/18/24] prednisone 20 mg tablet See Rx Instructions PO .COMPLEX PRN joint pain flare #30 tabs 04/23/24 [Rx Confirmed 11/18/24] folic acid 1 mg tablet 1 mg PO DAILY 90 days #90 tabs 10/31/24 [Rx Confirmed 11/18/24] methotrexate sodium 2.5 mg tablet See Rx Instructions PO .week Rheumatoid Arthritis #150 tabs 10/31/24 [Rx Confirmed 11/18/24] tramadol 50 mg tablet 50 mg PO BID PRN pain (scale score 7-10) #60 tabs 10/31/24 [Rx Confirmed 11/18/24] Discharge Plan Discharge Patient Disposition: Home Condition: Fair Prescriptions: No Action alprazolam [Xanax] 0.5 mg tablet 0.5 mg PO DAILY PRN (Reason: anxiety) 30 Days Qty: 30 0RF cyclobenzaprine 10 mg tablet 10 mg PO TID PRN (Reason: muscle spasm) 30 Days Qty: 90 1RF duloxetine [Cymbalta] 60 mg capsule,delayed release(DR/EC) 60 mg PO DAILY 90 Days Qty: 90 1RF lisinopril 20 mg tablet 20 mg PO BID 90 Days Qty: 180 1RF metoprolol tartrate 75 mg tablet 75 mg PO BID 90 Days Qty: 180 1RF folic acid 1 mg tablet 1 mg PO DAILY 90 Days Qty: 90 3RF tramadol 50 mg tablet 50 mg PO BID PRN (Reason: pain (scale score 7-10)) Qty: 60 0RF methotrexate sodium 2.5 mg tablet See Rx Instructions PO .week Qty: 150 0RF Rx Instructions: Split dose.. take 10 tabs on the same day once a week, take 5 tabs in the AM and 5 tabs in the PM prednisone 20 mg tablet See Rx Instructions PO .COMPLEX PRN (Reason: joint pain flare) Qty: 30 1RF Rx Instructions: take 1-2tabs daily for 3-7 days PRN joint pain flare PO PRN; Discharge Order = DC NOW: Transfer Out of Facility (Order); Ordered 11/21/24 Ordered By: Thaddeus Patterson Referrals: Kurt,CARMINE Gonsales [Primary Care Provider, Nurse Practitioner] - 11/26/24 2:40 pm Patient Instructions: Opioid Safety, Patient Portal & Charles Instructions Transfer Attestations Time Spent in Transfer Care: greater than 30 min Quality Metrics Clinical Quality Measures [ No reported AMI, CVA or VTE this stay] Coding Level of Care Code 07383 Diagnoses Neoplasm of brain causing mass effect and brain compression on adjacent str uctures D49.6; G93.5 Hypertensive urgency I16.0 Degenerative joint disease (DJD) of lumbar spine M47.816 Rheumatoid arthritis with positive rheumatoid factor, involving unspecified site M05.9 Recurrent major depressive disorder, in partial remission F33.41 High risk medication use Z79.899 Time Spent (min) 80
== END 2024-11-21 19:02 | disposition short-term general hospital (02) | DRG 54 ==
LOC: ER 21:27 → MEDSURG 22:40
PROVIDERS: Emergency Medicine; Admitting Provider Student in an Organized Health Care Education/Training Program; Emergency Provider Emergency Medicine; PCP Nurse Practitioner Family; Visit Provider Internal Medicine
DX: C79.31 Secondary malignant neoplasm of brain (principal); G93.5 Compression of brain; M79.672 Pain in left foot; C80.1 Malignant (primary) neoplasm, unspecified; M47.816 Spondylosis without myelopathy or radiculopathy, lumbar region; F33.41 Major depressive disorder, recurrent, in partial remission; I16.0 Hypertensive urgency; I10 Essential (primary) hypertension; M06.9 Rheumatoid arthritis, unspecified; Z79.52 Long term (current) use of systemic steroids; Z79.899 Other long term (current) drug therapy; Z91.81 History of falling; Z71.85 Encounter for immunization safety counseling; Z90.11 Acquired absence of right breast and nipple; Z90.49 Acquired absence of other specified parts of digestive tract; Z82.49 Family history of ischemic heart disease and other diseases of the circulatory system; Z82.3 Family history of stroke; Z80.9 Family history of malignant neoplasm, unspecified; Z96.651 Presence of right artificial knee joint; Z85.3 Personal history of malignant neoplasm of breast; Z92.21 Personal history of antineoplastic chemotherapy
CPT/HCPCS: 36415; 36569; 70450; 70551; 70552; 71045; 71260; 73630; 74177; 80053; 81001; 83735; 84100; 84443; 85025; 93005; 96372; 96374; 96375; 96376; 97161; 99285; C1751; G0378; J0360; J1100; J1644; J2405; J3480; J3490; J8597; J9999